=== PATIENT | female | born 1970 | race Caucasian/White ===

== ENCOUNTER → 2017-09-03 | Outpatient (CLI) | payer OTHER ==
[~2017-09-03] MED LIST: ALPR0.25 PO; LEVO137T3 PO; MTR600X MT
[2017-09-03 10:54] LABS: ALBUMIN 4.1 gm/dl (3.4-5.0); ALT/SGPT 95 U/L (12-78); BLOOD UREA NITROGEN 19 mg/dl (7-18); CALCIUM 9.7 mg/dl (8.5-10.1); CARBON DIOXIDE 26 mmol/L (21-32); CHOLESTEROL 242 mg/dl (0-200); GLUCOSE 147 mg/dl (70-99); POTASSIUM 4.9 mmol/L (3.5-5.1); SODIUM 136 mmol/L (136-145)
[2017-09-03 10:57] LABS: ALKALINE PHOSPHATASE 135 U/L (45-117); AST/SGOT 52 U/L (15-37); TOTAL PROTEIN 7.8 gm/dl (6.4-8.2)
== END | disposition home or self-care (01) ==
LOC: C.LAB1850 07:02
PROVIDERS: ATTEND Physician Assistant
DX: R79.89 Other specified abnormal findings of blood chemistry (principal)

== ENCOUNTER → 2017-12-31 | Outpatient (CLI) | payer OTHER ==
--- NOTE | 2017-12-31 09:04 | DIAGNOSTIC IMAGING REPORT ---
R PELVIS/UNILATERAL HIP 2-3VIEWS CLINICAL HISTORY: Right hip pain. COMPARISON: CT of the abdomen and pelvis March 05, 2015. FINDINGS: Sacroiliac joints and symphysis pubis are intact. Pelvic calcifications represent phleboliths. There is no fracture or suspicious lesion within the pelvis or hips. Right hip joint space is preserved. There is mild osteophytosis of the superior acetabulum. There is no evidence for avascular necrosis of the femoral heads. IMPRESSION: 1. Mild osteoarthritis of the right hip. Preserved joint space with mild osteophytosis. 2. No acute fracture within the pelvis or hips. Electronically signed by: Scott Milner M.D. 12/31/2017 7:52 AM Dictated Date/Time: 12/31/2017 7:50 AM
== END | disposition home or self-care (01) ==
LOC: C.RAD 07:20
PROVIDERS: ATTEND Physician Assistant
DX: M16.11 Unilateral primary osteoarthritis, right hip (principal)

== ENCOUNTER 2020-09-04 12:59 | Inpatient (IN) ==
[2020-09-04] MEDS ORDERED: HYDROmorphone INJ 0.5 MG/0.5 ML SYR IV STA ×2 (13:28→17:27)
[2020-09-04] MEDS ORDERED: SODIUM CHLORIDE 0.9% 1000ML 1,000 ML IV ONE (13:28)
[2020-09-04] MEDS ORDERED: ONDANSETRON INJ 2 MG/ML 2 ML VIAL IV STA (13:28)
--- NOTE | 2020-09-04 13:31 | Emergency Department Note ---
Impression & Plan Abdominal pain, Acute pancreatitis ED Provider Note NAME: SHAGUFTA HATFIELD AGE: 50 SEX: F : 1970 ARRIVES VIA: Walk-In INFORMANT: Patient ED PROVIDER(S): Judah Hernández DO CHIEF COMPLAINT: abdominal pain HPI: Patient is a 50-year-old female who presents the ER for epigastric abdominal pain. She has had this four times before in the past. It is consistent with her previous bouts of pancreatitis. She admits to nausea but no vomiting. Last bowel movement was within the past 24 hours. History of hysterectomy and tubal ligation. Denies any headache or change in vision. No chest pain or shortness of breath. No other exacerbating or remitting factors. Pain is a 7 out of 10 sharp stabbing. ROS: See above HPI for pertinent positives & negatives. A total of 10 systems reviewed and were otherwise negative. PAST MEDICAL HISTORY:See Below PAST SURGICAL HISTORY:See Below FAMILY HISTORY:See Below SOCIAL HISTORY:See Below HOME MEDICATIONS:See Below ALLERGIES:See Below VITALS:See Below PHYSICAL EXAMINATION: GENERAL: Sitting up in bed, alert, well appearing, well nourished, no distress, non-toxic EYE EXAM: normal conjunctiva. OROPHARYNX: no exudate, no erythema, lips, buccal mucosa, and tongue normal and mucous membranes are moist NECK: supple, no nuchal rigidity, no adenopathy, non-tender LUNGS: Clear to auscultation. Normal chest wall mechanics HEART: no murmurs, S1 normal and S2 normal ABDOMEN: abdomen soft, tender palpation epigastric region, normo-active bowel sounds, no masses, no rebound or guarding. UPPER EXTREMITIES: upper extremities are grossly normal. LOWER EXTREMITIES: No pitting edema. NEURO EXAM: Normal sensorium, cranial nerves II-XII grossly intact, normal speech, no gross weakness of arms, no gross weakness of legs. MEDICAL DECISION MAKING: Patient is a 50-year-old female who presents ER for epigastric abdominal pain. She had this 4 times before in the past and it feels exactly like the previous bouts. IV was established blood was obtained. Labs show no significant leukocytosis or anemia. BMP with mild hyponatremia at 135. LFTs bilirubin was unremarkable. Lipase was elevated at nearly 1500. UA was negative. Covid was negative. CT abdomen pelvis showed a low-grade enteritis. Patient was given IV fluids IV narcotics and IV Zofran. Updated bedside discussed with the hospitalist admitted for further work-up of her pancreatitis. Triage Nursing notes reviewed. Limited review of prior medical records performed Vital Signs: reviewed and remarkable for HTN Differential diagnosis: Differential diagnoses includes but is not limited to gastritis, peptic ulcer disease, GERD, gallbladder disease, pancreatitis, small bowel obstruction, acute coronary syndrome, pericarditis, ischemic bowel, irritable bowel disease, irritable bowel syndrome, appendicitis, diverticulitis, malignancy, hernia, urinary tract infection, torsion, perforation, trauma, infectious. ER treatment provided: See below Diagnostics interpreted by me: ECG: none Cardiac Monitoring: An order was placed for continuous cardiac monitoring. The monitor shows a rate of 74 with sinus rhythm. Laboratory studies: As stated above and show below. Imaging studies: CT abdomen pelvis shows no acute pathology as discussed above Consultation(s): Discussed with the hospitalist for further evaluation Procedures: none Critical Care: None Past Med/Surg History Social History Smoking Status: Current every day smoker Tobacco Type: Cigarettes Feels Safe at Home: Yes Allergies Allergies Allergy/AdvReac Type Severity Reaction Status Date / Time No Known Allergies Allergy Verified 09/04/20 15:02 Home Meds Home Medications Medication Instructions Recorded Confirmed hydroxyzine pamoate [Vistaril] See Rx Instructions .ROUTE .COMPLEX 09/04/20 09/04/20 levothyroxine [Levoxyl] 125 mcg PO QAM 09/04/20 09/04/20 ursodiol 300 mg PO BID 09/04/20 09/04/20 Results & Data (ED) Vital Signs Vital Signs - 24 hr 09/04/20 13:02 09/04/20 14:00 09/04/20 15:52 Temperature 36.3 C L Temperature Source Temporal Artery Scan Pulse Rate 91 H Pulse Rate [Finger] 82 68 Respiratory Rate 18 18 16 Respiratory Effort / Characteristics Non-Labored Spontaneous Non-Labored Respiratory Depth Normal Normal Blood Pressure 188/113 H Blood Pressure [Right Arm] 161/103 H 159/99 H Blood Pressure Mean 138 Blood Pressure Mean [Right Arm] 122 119 Blood Pressure Position Sitting Pulse Oximetry 97 96 97 Oxygen Delivery Method Room Air Room Air Room Air Sepsis Recent Fever Within 48 Hours No Sepsis New/Unexplained Change in Mental Status N/A Sepsis Action Taken by Nursing No Action Required 09/04/20 17:46 Temperature Temperature Source Pulse Rate Pulse Rate [Finger] 79 Respiratory Rate 16 Respiratory Effort / Characteristics Respiratory Depth Blood Pressure Blood Pressure [Right Arm] 156/98 H Blood Pressure Mean Blood Pressure Mean [Right Arm] 117 Blood Pressure Position Pulse Oximetry 97 Oxygen Delivery Method Room Air Sepsis Recent Fever Within 48 Hours Sepsis New/Unexplained Change in Mental Status Sepsis Action Taken by Nursing Laboratory Data Result diagrams: 09/04/20 13:57 09/04/20 17:46 Lab Results 09/04/20 09/04/20 09/04/20 Range/Units 13:57 13:57 13:57 WBC 9.68 (4.8-10.8) K/uL RBC 5.04 (4.2-5.4) M/uL Hgb 15.4 (12.0-16.0) g/dL Hct 42.9 (37-47) % MCV 85.1 (80-100) fL MCH 30.6 (25-34) pg MCHC 35.9 (32-36) g/dL RDW Std Deviation 41.8 (36.4-46.3) fL RDW Coeff of Meliton 13.6 (11.5-14.5) % Plt Count 170 (130-400) K/uL MPV 10.2 (7.4-10.4) fL Immature Gran % (Auto) 0.9 % Neut % (Auto) 65.2 % Lymph % (Auto) 27.2 % [place] % (Auto) 5.1 % Eos % (Auto) 0.9 % Baso % (Auto) 0.7 % Neut # (Auto) 6.31 (1.4-6.5) K/uL Lymph # (Auto) 2.63 (1.2-3.4) K/uL [place] # (Auto) 0.49 (0.11-0.59) K/uL Eos # (Auto) 0.09 (0-0.5) K/uL Baso # (Auto) 0.07 (0-0.2) K/uL Immature Gran # (Auto) 0.09 H (0.00-0.02) K/uL Sodium 135 L (136-145) mmol/L Potassium (3.5-5.1) mmol/L Chloride 103 (98-107) mmol/L Carbon Dioxide 26 (21-32) mmol/L Anion Gap 6.0 (3-11) BUN 12 (7-18) mg/dl Creatinine 0.65 (0.6-1.2) mg/dl Est Cr Clr Drug Dosing 104.0 ml/min Est GFR ( Amer) 120.0 Est GFR (Non-Af Amer) 103.5 BUN/Creatinine Ratio 17.8 (10-20) Glucose 198 H (70-99) mg/dl Calcium 8.9 (8.5-10.1) mg/dl Total Bilirubin 0.5 (0.2-1) mg/dl AST (15-37) U/L ALT 67 (12-78) U/L Alkaline Phosphatase 152 H (45-117) U/L Total Protein 7.9 (6.4-8.2) gm/dl Albumin 3.9 (3.4-5.0) gm/dl Globulin 3.8 (2.5-4.0) gm/dl Albumin/Globulin Ratio 1.0 (0.9-2) Lipase 1475 H (73-393) U/L Urine Color Yellow Urine Appearance Clear (Clear) Urine pH 5.0 (4.5-7.5) Ur Specific Holly 1.007 (1.000-1.030) Urine Protein Negative (Negative) Urine Glucose (UA) Trace H (Negative) Urine Ketones Negative (Negative) Urine Blood Negative (Negative) Urine Nitrite Negative (Negative) Urine Bilirubin Negative (Negative) Urine Urobilinogen Negative (Negative) Ur Leukocyte Esterase Negative (Negative) COVID-19 Eval Order SARS-CoV-2 (PCR) (Negative) Influenza Type A (PCR) (Neg) Influenza Type B (PCR) (Neg) RSV (RT-PCR) (Neg) 09/04/20 09/04/20 09/04/20 Range/Units 17:32 17:32 17:46 WBC (4.8-10.8) K/uL RBC (4.2-5.4) M/uL Hgb (12.0-16.0) g/dL Hct (37-47) % MCV (80-100) fL MCH (25-34) pg MCHC (32-36) g/dL RDW Std Deviation (36.4-46.3) fL RDW Coeff of Meliton (11.5-14.5) % Plt Count (130-400) K/uL MPV (7.4-10.4) fL Immature Gran % (Auto) % Neut % (Auto) % Lymph % (Auto) % [place] % (Auto) % Eos % (Auto) % Baso % (Auto) % Neut # (Auto) (1.4-6.5) K/uL Lymph # (Auto) (1.2-3.4) K/uL [place] # (Auto) (0.11-0.59) K/uL Eos # (Auto) (0-0.5) K/uL Baso # (Auto) (0-0.2) K/uL Immature Gran # (Auto) (0.00-0.02) K/uL Sodium (136-145) mmol/L Potassium 4.0 (3.5-5.1) mmol/L Chloride (98-107) mmol/L Carbon Dioxide (21-32) mmol/L Anion Gap (3-11) BUN (7-18) mg/dl Creatinine (0.6-1.2) mg/dl Est Cr Clr Drug Dosing ml/min Est GFR ( Amer) Est GFR (Non-Af Amer) BUN/Creatinine Ratio (10-20) Glucose (70-99) mg/dl Calcium (8.5-10.1) mg/dl Total Bilirubin (0.2-1) mg/dl AST 35 (15-37) U/L ALT (12-78) U/L Alkaline Phosphatase (45-117) U/L Total Protein (6.4-8.2) gm/dl Albumin (3.4-5.0) gm/dl Globulin (2.5-4.0) gm/dl Albumin/Globulin Ratio (0.9-2) Lipase (73-393) U/L Urine Color Urine Appearance (Clear) Urine pH (4.5-7.5) Ur Specific Holly (1.000-1.030) Urine Protein (Negative) Urine Glucose (UA) (Negative) Urine Ketones (Negative) Urine Blood (Negative) Urine Nitrite (Negative) Urine Bilirubin (Negative) Urine Urobilinogen (Negative) Ur Leukocyte Esterase (Negative) COVID-19 Eval Order CovFluRsv at [facility] SARS-CoV-2 (PCR) NEGATIVE (Negative) Influenza Type A (PCR) Negative (Neg) Influenza Type B (PCR) Negative (Neg) RSV (RT-PCR) Negative (Neg) Administered Medications Discontinued Medications Hydromorphone HCl (Hydromorphone Inj 0.5 Mg/0.5 Ml Syr) 0.5 mg IV NOW STA Stop: 09/04/20 13:29 Last Admin: 09/04/20 14:03 Dose: 0.5 mg Documented by: [id number] Hydromorphone HCl (Hydromorphone Inj 0.5 Mg/0.5 Ml Syr) 0.5 mg IV NOW STA Stop: 09/04/20 17:28 Last Admin: 09/04/20 17:35 Dose: 0.5 mg Documented by: [id number] Sodium Chloride (Nss 1000ml) 1,000 mls @ 999 mls/hr IV .Q1H1M ONE Stop: 09/04/20 14:28 Last Infusion: 09/04/20 15:15 Dose: 0 mls/hr Documented by: [id number] Admin: 09/04/20 14:03 Dose: 999 mls/hr Documented by: [id number] Ioversol (Ioversol 100ml) 92 ml IV ONCE ONE Stop: 09/04/20 17:14 Last Admin: 09/04/20 17:14 Dose: 92 ml Documented by: [id number] Ondansetron HCl (Ondansetron Inj 2 Mg/Ml 2 Ml Vial) 4 mg IV NOW STA Stop: 09/04/20 13:29 Last Admin: 09/04/20 14:02 Dose: 4 mg Documented by: [id number] Discharge Plan Visit Data Chief Complaint: Illness Stated Complaint: PANCREATIC ATTACK ED Provider: Judah Hernández Discharge Problem: Abdominal pain, Acute pancreatitis Forms Stand Alone Forms: [facility] III Prescriptions Prescriptions: No Action levothyroxine [Levoxyl] 125 mcg tablet 125 mcg PO QAM RF: 0 ursodiol 300 mg capsule 300 mg PO BID RF: 0 hydroxyzine pamoate [Vistaril] 25 mg capsule See Rx Instructions .ROUTE .COMPLEX RF: 0 Discharge Problem: Abdominal pain Qualifiers: Abdominal location: unspecified location Qualified Code(s): R10.9 - Unspecified abdominal pain Acute pancreatitis Qualifiers: Pancreatitis type: unspecified pancreatitis type Acute pancreatitis complication: unspecified Qualified Code(s): K85.90 - Acute pancreatitis without necrosis or infection, unspecified
[2020-09-04 14:22] LABS: Basophils # (auto) 0.07 K/uL (0-0.2); Basophils % (auto) 0.7 %; Eosinophils # (auto) 0.09 K/uL (0-0.5); Eosinophils % (auto) 0.9 %; Hematocrit (blood only) 42.9 % (37-47); Hemoglobin 15.4 g/dL (12.0-16.0); Immature Granulocytes # (auto) 0.09 K/uL (0.00-0.02); Immature Granulocytes % (auto) 0.9 %; Lymphocytes # (auto) 2.63 K/uL (1.2-3.4); Lymphocytes % (auto) 27.2 %; Mean Corpuscular Hemoglobin 30.6 pg (25-34); Mean Corpuscular Hgb Conc 35.9 g/dL (32-36); Mean Corpuscular Volume 85.1 fL (80-100); Mean Platelet Volume 10.2 fL (7.4-10.4); Monocytes # (auto) 0.49 K/uL (0.11-0.59); Monocytes % (auto) 5.1 %; Neutrophils # (auto) 6.31 K/uL (1.4-6.5); Neutrophils % (auto) 65.2 %; Platelet Count 170 K/uL (130-400); RDW Coefficient of Variation 13.6 % (11.5-14.5); RDW Standard Deviation 41.8 fL (36.4-46.3); Red Blood Count 5.04 M/uL (4.2-5.4); White Blood Count 9.68 K/uL (4.8-10.8)
[2020-09-04 14:42] LABS: Appearance Urine Clear (Clear); Bilirubin Urine Negative (Negative); Blood Urine Negative (Negative); Color Urine Yellow; Glucose Urine UA Trace (Negative); Ketones Urine Negative (Negative); Leukocyte Esterase Urine Negative (Negative); Nitrite Urine Negative (Negative); Protein Urine Negative (Negative); Specific Gravity Urine 1.007 (1.000-1.030); Urobilinogen Urine Negative (Negative)
[2020-09-04 16:04] LABS: Albumin Level 3.9 gm/dl (3.4-5.0); BUN Creatinine Ratio 17.8 (10-20); Bilirubin,Total 0.5 mg/dl (0.2-1); Calcium 8.9 mg/dl (8.5-10.1); Est GFR (Non-African American) 103.5; Globulin 3.8 gm/dl (2.5-4.0); Total Protein 7.9 gm/dl (6.4-8.2)
[2020-09-04] MEDS ORDERED: OPTIRAY 320 100ml IV ONE (17:13)
--- NOTE | 2020-09-04 17:29 | CT Scan Report ---
ABDOMEN AND PELVIS CT WITH IV CONTRAST CT DOSE: 877.33 mGycm HISTORY: Left-sided abdominal pain. TECHNIQUE: Multiaxial CT images of the abdomen and pelvis were performed following the use of intrave nous contrast. A dose lowering technique was utilized adhering to the principles of ALARA. COMPARISON STUDY: 03/05/2015. FINDINGS: Mild dependent changes seen at the lung bases. No pneumoperitoneum. No pneumatosis. No frac tures within the visualized osseous structures. Hepatomegaly demonstrating fatty change. A few subcen timeter hypervascular foci within the right hepatic lobe with the largest in segment 6 measuring 11 m m. This remains stable. These are technically indeterminate but could represent a small flash filling hemangiomas. The spleen, adrenal glands, pancreas, gallbladder, and right kidney are unremarkable. T here is a 13 mm cyst within the upper pole the left kidney, unchanged. No hydronephrosis. Hysterectom y. No bladder wall thickening. No pelvic free fluid. Colonic diverticulosis. No evidence for acute di verticulitis. Normal appendix. Questionable minimal inflammatory change surrounding a few loops of je junum within the left side of the abdomen. This is best seen on image 197. This raises the possibilit y of a low-grade enteritis. IMPRESSION: 1. Possible low-grade enteritis. 2. Colonic diverticulosis. No evidence for acute diverticulitis. 3. No evidence for bowel obstruction. 4. Normal appendix. 5. A few scattered hypervascular lesions within the right hepatic lobe. These are technically indeter minate but could represent flash filling hemangiomas. 6. Hepatomegaly demonstrating fatty change. ACT 112: Negative or not required by law. Electronically signed by: Blake Rios M.D. 09/04/2020 5:27 PM
--- NOTE | 2020-09-04 18:01 | History & Physical Report ---
Date of Service September 04, 2020 Assessment & Plan (1) Acute pancreatitis: Acute Pancreatitis: H/O multiple episodes of pancreatitis -CT ABD: Possible low-grade enteritis. Colonic diverticulosis. No evidence for acute diverticulitis. No evidence for bowel obstruction. Normal appendix. A few scattered hypervascular lesions within the right hepatic lobe. These are technically indeterminate but could represent flash filling hemangiomas. Hepatomegaly demonstrating fatty change. Keep NPO Start on IV fluids Lipase levels elevated: 1475 Denies an recent Alcohol use Check Tox Screen, Alcohol levels Check Gallbladder [facility] consulted Check lipid panel Pain control Monitor LFTs Continue ursodiol Started on Pepcid Hypertension BP elevated likely situational Started on Amlodipine DM Type II: Poorly controlled Currently not on meds Last A1c:9.2 on 09/17/18 Start on Insulin therapy Monitor BGs Hypothyroidism Continue levothyroxine Check TSH Dyslipidemia Currently not on any meds Check lipid panel in a.m. Tobacco use disorder Counseled to quit tobacco Refuses nicotine patch DVT Px: SCDs CODE STATUS Full code Disposition Expected discharge home when medically stable History of Present Illness Chief Complaint: Abdominal Pain Primary Care Provider: Edwin Espinoza MD Patient is a 50-year-old female with history of type 2 diabetes mellitus, tobacco use disorder, hypothyroidism, dyslipidemia, history of pancreatitis and other medical problems presents with history of abdominal distention, fullness associated with epigastric pain. Patient states that even with minimal food intake, patient feels distended and full since 1 week duration. She admits to having multiple episodes of pancreatitis in the past which she attributes to gallbladder sludge and states that she is planned to be seen by a surgeon for gallbladder removal. She denies any recent alcohol use. She is reports abdominal pain which is epigastric in location, nonradiating, 6/10 intensity, no aggravating or relieving factors. She was started on ursodiol recently by her PCP. She was diagnosed to have type 2 diabetes mellitus but currently not taking any medications. Denies any history of chest pain, SOB, palpitations, dizziness, pedal edema, cough, fever, chills, headache, weakness, nausea, vomiting, diarrhea, dysuria, recent travel, sick contact. Allergies Allergy/AdvReac Type Severity Reaction Status Date / Time No Known Allergies Allergy Verified 09/04/20 15:02 Home Medications Medication Instructions Recorded Confirmed Type hydroxyzine pamoate [Vistaril] See Rx Instructions .ROUTE .COMPLEX 09/04/20 09/04/20 History levothyroxine [Levoxyl] 125 mcg PO QAM 09/04/20 09/04/20 History ursodiol 300 mg PO BID 09/04/20 09/04/20 History Past Med/Surg History Medical History Diabetes Hypothyroidism Tobacco use disorder Social History Smoking Status: Current every day smoker Tobacco Type: Cigarettes Feels Safe at Home: Yes Review of Systems Review of Systems: All systems reviewed & are unremarkable except as noted in HPI & below Physical Exam Physical Exam: Physical Exam: Vitals signs as noted above General Appearance:Moderately built and nourished, no apparent distress Head: normocephalic, Atraumatic Eyes: normal inspection, EOMI Neck: supple, Trachea midline Respiratory/Chest: Normal breath sounds, CTA, No accessory muscle use Cardiovascular: S1, S2, No murmur Abdomen/GI:Soft, Epigastric tender, Bowel sounds present Extremities/Musculoskeletal:normal inspection, no edema Neurologic/Psych:AAOX3, grossly no focal neurological deficits Skin: normal color, warm Results & Data Results & Data ([facility]) Vital Signs (Past 12 Hours) Vital Signs Temp Pulse Pulse Resp BP BP Pulse Ox 09/04/20 17:46 79 16 156/98 H 97 09/04/20 15:52 68 16 159/99 H 97 09/04/20 14:00 82 18 161/103 H 96 09/04/20 13:02 36.3 C L 91 H 18 188/113 H 97 Laboratory Results Short CBC 09/04/20 Range/Units 13:57 WBC 9.68 (4.8-10.8) K/uL Hgb 15.4 (12.0-16.0) g/dL Hct 42.9 (37-47) % Plt Count 170 (130-400) K/uL BMP 09/04/20 09/04/20 13:57 17:46 Sodium 135 L Potassium 4.0 Chloride 103 Carbon Dioxide 26 BUN 12 Creatinine 0.65 Glucose 198 H Calcium 8.9 Liver Function 09/04/20 09/04/20 Range/Units 13:57 17:46 Total Bilirubin 0.5 (0.2-1) mg/dl AST 35 (15-37) U/L ALT 67 (12-78) U/L Alkaline Phosphatase 152 H (45-117) U/L Albumin 3.9 (3.4-5.0) gm/dl Urine 09/04/20 Range/Units 13:57 Urine Color Yellow Urine Appearance Clear (Clear) Urine pH 5.0 (4.5-7.5) Ur Specific [place] 1.007 (1.000-1.030) Urine Protein Negative (Negative) Urine Glucose (UA) Trace H (Negative) Diagnostic Findings CT ABD: 1. Possible low-grade enteritis. 2. Colonic diverticulosis. No evidence for acute diverticulitis. 3. No evidence for bowel obstruction. 4. Normal appendix. 5. A few scattered hypervascular lesions within the right hepatic lobe. These are technically indeterminate but could represent flash filling hemangiomas. 6. Hepatomegaly demonstrating fatty change. (1) Acute pancreatitis Acute pancreatitis complication: unspecified Pancreatitis type: unspecified pancreatitis type Qualified Code(s): K85.90 - Acute pancreatitis without necrosis or infection, unspecified
[2020-09-04 18:33] LABS: Influenza A virus by PCR Negative (Neg); Influenza B virus by PCR Negative (Neg); RSV by PCR Negative (Neg); SARS CoV2 RNA(COVID-19) InHosp NEGATIVE (Negative)
[2020-09-04] MEDS ORDERED: amLODIPine BESYLATE 5 MG TAB PO ONE (21:08)
[2020-09-04] MEDS ORDERED: CARBOHYDRATES FOR HYPOGLYCEMIA PO PRN (21:08)
[2020-09-04] MEDS ORDERED: ONDANSETRON INJ 2 MG/ML 2 ML VIAL IV PRN (21:08)
[2020-09-04] MEDS ORDERED: DEXTROSE 50% 50 ML SYRINGE IV PRN (21:08)
[2020-09-04] MEDS ORDERED: GLUCOSE 40% GEL 15 GM TUBE PO PRN (21:08)
[2020-09-04] MEDS ORDERED: hydrOXYzine HCl 10 MG TAB PO PRN (21:08)
[2020-09-04] MEDS ORDERED: ACETAMINOPHEN 325 MG TAB PO PRN (21:08)
[2020-09-04] MEDS ORDERED: POLYETHYLENE (MIRALAX) 17 GM PACK PO PRN (21:08)
[2020-09-04] MEDS ORDERED: GLUCOSE 10 TABS/TUBE PO PRN (21:08)
[2020-09-04] MEDS ORDERED: GLUCAGON FOR INJ 1 MG VIAL SQ PRN (21:08)
[2020-09-04] MEDS ORDERED: MoRPHine SULFATE 2 MG/ML CARP IV PRN (21:08)
[2020-09-04] MEDS: INSULIN ASPART 100 UNITS/ML 3 ML PEN SC SCH (21:52)
[2020-09-04] MEDS: FAMOTIDINE 10 MG TABLET PO SCH (21:53)
[2020-09-04] MEDS: LACTATED RINGER'S 1,000 ML IV SCH (21:53)
[2020-09-04] MEDS: ursodioL 300 MG CAP PO SCH (21:53)
[2020-09-04 22:15] LABS: Chol HDL Ratio 12; Cholesterol 304 mg/dl (0-200); HDL Cholesterol 26 mg/dl; Triglycerides 1889 mg/dl (0-150)
[2020-09-05 04:11] LABS: Amphetamines+Metham, Urine Neg (Neg); Barbiturates, Urine Neg (Neg); Benzodiazepine, Urine Neg (Neg); Cocaine, Urine Neg (Neg); MDMA (Ecstacy), Urine Neg (Neg); Methadone, Urine Neg (Neg); Opiate, Urine Neg (Neg); Phencyclidine, Urine Neg (Neg)
[2020-09-05] MEDS: LACTATED RINGER'S 1,000 ML IV SCH ×4 (04:11→23:48)
[2020-09-05] MEDS: LEVOTHYROXINE SODIUM 125 MCG TABLET PO SCH (05:51)
[2020-09-05 07:30] LABS: Basophils # (auto) 0.04 K/uL (0-0.2); Basophils % (auto) 0.5 %; Eosinophils # (auto) 0.11 K/uL (0-0.5); Eosinophils % (auto) 1.4 %; Hematocrit (blood only) 41.4 % (37-47); Hemoglobin 14.4 g/dL (12.0-16.0); Immature Granulocytes # (auto) 0.09 K/uL (0.00-0.02); Immature Granulocytes % (auto) 1.1 %; Lymphocytes # (auto) 2.49 K/uL (1.2-3.4); Lymphocytes % (auto) 31.1 %; Mean Corpuscular Hemoglobin 29.9 pg (25-34); Mean Corpuscular Hgb Conc 34.8 g/dL (32-36); Mean Corpuscular Volume 85.9 fL (80-100); Mean Platelet Volume 10.2 fL (7.4-10.4); Monocytes # (auto) 0.44 K/uL (0.11-0.59); Monocytes % (auto) 5.5 %; Neutrophils # (auto) 4.83 K/uL (1.4-6.5); Neutrophils % (auto) 60.4 %; Platelet Count 155 K/uL (130-400); RDW Coefficient of Variation 13.8 % (11.5-14.5); RDW Standard Deviation 43.2 fL (36.4-46.3); Red Blood Count 4.82 M/uL (4.2-5.4)
[2020-09-05] MEDS: amLODIPine BESYLATE 5 MG TAB PO SCH (08:05)
[2020-09-05] MEDS: FAMOTIDINE 10 MG TABLET PO SCH ×2 (08:05→21:27)
[2020-09-05] MEDS: ursodioL 300 MG CAP PO SCH ×2 (08:05→21:27)
[2020-09-05] MEDS: INSULIN ASPART 100 UNITS/ML 3 ML PEN SC SCH ×4 (08:12→21:26)
[2020-09-05 08:16] LABS: Albumin Level 3.5 gm/dl (3.4-5.0); BUN Creatinine Ratio 16.8 (10-20); Calcium 7.9 mg/dl (8.5-10.1); Creatinine Clr Calc Pharmacy 127.3 ml/min; Est GFR (African American) 128.3; Est GFR (Non-African American) 110.7; Magnesium 1.7 mg/dl (1.8-2.4); Potassium 3.6 mmol/L (3.5-5.1)
--- NOTE | 2020-09-05 08:16 | Ultrasound Report ---
ABDOMINAL ULTRASOUND, RIGHT UPPER QUADRANT HISTORY: Pancreatitis. Left-sided abdominal pain. COMPARISON: None. FINDINGS: Pancreas: Obscured by overlying bowel gas. Liver: The liver is echogenic consistent with fatty change. 21.5 cm. Gallbladder: No gallbladder wall thickening. No gallstones. CBD: 5 mm. Right kidney: No hydronephrosis. IMPRESSION: 1. Hepatomegaly demonstrating fatty change. 2. The pancreas is obscured by overlying bowel gas. 3. Normal gallbladder. No gallstones. ACT 112: Negative or not required by law. Electronically signed by: Blake Rios M.D. 09/05/2020 8:15 AM
[2020-09-05 08:30] LABS: Albumin Globulin Ratio 1.1 (0.9-2); Bilirubin,Total 0.5 mg/dl (0.2-1); Globulin 3.2 gm/dl (2.5-4.0); Thyroid Stimulating Hormone 2.11 uIu/ml (0.300-4.500); Total Protein 6.7 gm/dl (6.4-8.2)
[2020-09-05 08:46] LABS: Estimated Average Glucose 235 mg/dl; Hemoglobin A1C 9.8 % (4.5-5.6)
--- NOTE | 2020-09-05 10:01 | Hospitalist Progress Note ---
Date of Service September 05, 2020 Assessment & Plan (1) Acute pancreatitis: Acute Pancreatitis: H/O multiple episodes of pancreatitis -CT ABD: Possible low-grade enteritis. Colonic diverticulosis. No evidence for acute diverticulitis. No evidence for bowel obstruction. Normal appendix. A few scattered hypervascular lesions within the right hepatic lobe. These are technically indeterminate but could represent flash filling hemangiomas. Hepatomegaly demonstrating fatty change. Start Clears, Pain gone, feels hungry Resume IV fluids Lipase levels elevated: 1475 --->475 today Denies an recent Alcohol use Check Tox Screen, Alcohol levels Check Gallbladder [facility] consulted Check lipid panel-TG Elevated Pain control Monitor LFTs Continue ursodiol Started on Pepcid Hypertension BP elevated likely situational Started on Amlodipine DM Type II: Poorly controlled Currently not on meds Last A1c:9.2 on 09/17/18 Start on Insulin therapy Monitor BGs Hypothyroidism Continue levothyroxine Check TSH Dyslipidemia Currently not on any meds Check lipid panel in a.m. Tobacco use disorder Counseled to quit tobacco Refuses nicotine patch DVT Px: SCDs CODE STATUS Full code Labs Checked ROS-No Headache, No Visual Changes, No Nausea, No Vomiting, No Fever, No Chills, No Neck Pain or Stiffness, No Chest Pain, No Palpitations, No SOB, No DOBBINS, No Cough, No Sputum, No Wheezing, No Abdominal Pain, No Diarrhea, No Hematemesis, No Hemoptysis, No Unexpected Weight Loss, No Flank pain, No Melena, No Hematochezia, No Frequency, No Urgency, No Burning, No Hematuria, No Rashes, No Diaphoresis. Appetite is Normal Physical Exam Gen-AAO x 3, NAD, Afebrile Head-NCAT, EOMI, PERRLA, Anicteric Sclera, No Posterior Pharyngeal Erythema Neck-Supple, No JVD, No Thyromegaly, No Masses, No LAD, No Bruits Lungs-Clear to Auscultation Bilaterally, No Rales, No Rhonchi, No Wheezing, No Crepitus Chest-No S4, +S1, +S2, No S3, No Murmurs, No Rubs, No Gallops, No Ectopy Abdomen-Soft, Bowel Sounds Present, Non Tender, Non Distended, No Hepatomegaly, No Splenomegaly, No Palpable Masses, No Rebound, No Rigidity, No Guarding Musculoskeletal-Full Range of Motion Bilaterally, No CVAT Extremities-No Cyanosis, No Clubbing, No Edema Nuero-Cranial Nerves II-XII grossly intact, Motor WNL, DTRs WNL, Strength WNL, Non Focal Psych-Normal Mood Admission and Anticipated Discharge Date Admission Date: September 04, 2020 Results & Data Results & Data ([facility]) Vital Signs (Past 12 Hours) Vital Signs Temp Pulse Resp BP Pulse Ox 09/05/20 07:53 36.5 C 62 16 145/87 H 95 09/05/20 04:00 36.7 C 64 18 130/83 94 09/05/20 00:00 36.5 C 64 18 143/87 H 96 (1) Acute pancreatitis Acute pancreatitis complication: unspecified Pancreatitis type: unspecified pancreatitis type Qualified Code(s): K85.90 - Acute pancreatitis without necrosis or infection, unspecified
--- NOTE | 2020-09-05 10:09 | Gastrointestinal Consultation ---
Date of Consultation September 05, 2020 Assessment & Plan (1) Acute pancreatitis: 50 year old female admitted with abd pain, elevated lipase concerning for acute pancreatitis, similar episodes x 4, tells me she had abnormal biliary imaging with sludge in past but never had CCY. Imaging this admission negative, elevated triglycerides and mildly elevated LFTs NPO Can advance to clear liquids as tolerated then low fat Iv analgesia PRN IV antiemetics PRN gen surgery consultation to eval for CCY - she tells me she does not want to to this while admitted - she has appt thursday at [facility] with PCP and gen surg OP EUS in 6 weeks Thank you for allowing us to participate in the care of this patient. Please call with any acute changes, questions or concerns. Please see addendum below with additional recommendation from my supervising physician. Supervising Physician Co-Signing Physician Notes Late entry: Patient was seen and examine don 09/05 with CHAUNCEY Jackson whose note reflects our findings and plan. History of Present Illness Reason for Consultation: acute panc Requesting Physician: Trista Attending Physician: Ashish Weston, History of Present Illness 50 year old female admitted w/ abd pain x 1 week, acutely worsening 24 hours ago, admitted with elevated lipase - acute pancreatitis. Pt was seen and evaluated chart reviewed. Tells me she has had pancreatitis 4 x in the past. Symptoms identical. Suggests one episode was while in [place] others were while she was [place]. Notes she was told she had GB sludge and abnormal biliary imaging. Was to follow up with surgery and she notes she did this [place] but was not her GB is fine. Since, she was told to remain ETOH free and on low fat diet. She has done so. Despite this, similar episodes x 3 occurrences. Denies ETOH No new meds No family history of GI cancers Still has GB No supplements Triglycerides 1999 lipase 746 TB 0.5 AST 41 ALT 67 ALK 118 CTAP 2020: Possible low-grade enteritis. 2. Colonic diverticulosis. No evidence for acute diverticulitis. 3. No evidence for bowel obstruction. 4. Normal appendix. 5. A few scattered hypervascular lesions within the right hepatic lobe. These are technically indeterminate but could represent flash filling hemangiomas. 6. Hepatomegaly demonstrating fatty change. ABD US 2020: Hepatomegaly demonstrating fatty change. 2. The pancreas is obscured by overlying bowel gas. 3. Normal gallbladder. No gallstones. Allergies Allergy/AdvReac Type Severity Reaction Status Date / Time No Known Allergies Allergy Verified 09/04/20 15:02 Home Medications Medication Instructions Recorded Confirmed Type hydroxyzine pamoate [Vistaril] See Rx Instructions .ROUTE .COMPLEX 09/04/20 09/04/20 History levothyroxine [Levoxyl] 125 mcg PO QAM 09/04/20 09/04/20 History ursodiol 300 mg PO BID 09/04/20 09/04/20 History acetaminophen 650 mg PO Q4H PRN #30 tab 09/06/20 Rx amlodipine [Norvasc] 5 mg PO QAM #30 tab 09/06/20 Rx empagliflozin [Jardiance] 10 mg PO DAILY #30 tab 09/06/20 Rx famotidine [Acid Horse Exerciser 10 mg PO BID #60 tab 09/06/20 Rx (famotidine)] metformin 500 mg PO DAILY #30 tab 09/06/20 Rx Patient History Medical History Diabetes Hypothyroidism Tobacco use disorder Social History Smoking Status: Current every day smoker Tobacco Type: Cigarettes Cigarettes Per Day: 20; Second Hand Exposure: No; Do You Dip or Chew Tobacco: No; Tobacco Cessation Education Requested by Patient: No Hx Alcohol Use: No Hx Substance Use: No Preferred Language: Spanish Communication Ability: Effective Human Resources Talent Manager Required: No Beliefs That Will Affect Care: None Current Living Situation: Alone Other Information That Helps Us Care for You: No Feels Safe at Home: Yes Safety Concerns: Feels Safe At This Time Assistive Devices: None Review of Systems Constitutional: no fever, no chills and no fatigue Respiratory: no cough and no dyspnea Cardiovascular: no chest pain and no dyspnea Gastrointestinal: + abdominal pain and + nausea; no vomiting, no coffee ground emesis, no blood in stools and no melena Physical Exam Constitutional: well developed and well nourished; no acute distress Neck: trachea midline Respiratory: normal respiratory effort Cardiovascular: Rate/Rhythm: regular rate and regular rhythm Gastrointestinal (Abdomen): Percussion/Palpation: + abdomen tender (mild, improved) and abdomen soft; no guarding and abdomen not rigid Skin: no rashes, warm and dry Results & Data ([facility]) Vital Signs (Past 12 Hours) Vital Signs Temp Pulse Pulse Resp BP Pulse Ox 09/05/20 07:53 36.5 C 62 16 145/87 H 95 09/05/20 07:30 66 09/05/20 04:00 36.7 C 64 18 130/83 94 09/05/20 00:00 36.5 C 64 18 143/87 H 96 Laboratory Results 09/05/20 09/05/20 09/05/20 Range/Units 07:49 06:56 06:56 WBC (4.8-10.8) K/uL RBC (4.2-5.4) M/uL Hgb (12.0-16.0) g/dL Hct (37-47) % MCV (80-100) fL MCH (25-34) pg MCHC (32-36) g/dL RDW Std Deviation (36.4-46.3) fL RDW Coeff of Meliton (11.5-14.5) % Plt Count (130-400) K/uL MPV (7.4-10.4) fL Immature Gran % (Auto) % Neut % (Auto) % Lymph % (Auto) % [place] % (Auto) % Eos % (Auto) % Baso % (Auto) % Neut # (Auto) (1.4-6.5) K/uL Lymph # (Auto) (1.2-3.4) K/uL [place] # (Auto) (0.11-0.59) K/uL Eos # (Auto) (0-0.5) K/uL Baso # (Auto) (0-0.2) K/uL Immature Gran # (Auto) (0.00-0.02) K/uL Sodium 135 L (136-145) mmol/L Potassium 3.6 (3.5-5.1) mmol/L Chloride 104 (98-107) mmol/L Carbon Dioxide 26 (21-32) mmol/L Anion Gap 6.0 (3-11) BUN 9 (7-18) mg/dl Creatinine 0.53 L (0.6-1.2) mg/dl Est Cr Clr Drug Dosing 127.3 ml/min Est GFR ( Amer) 128.3 Est GFR (Non-Af Amer) 110.7 BUN/Creatinine Ratio 16.8 (10-20) Glucose 223 H (70-99) mg/dl POC Glucose 220 H (70-99) mg/dl Estimat Average Glucose 235 mg/dl Hemoglobin A1c 9.8 H (4.5-5.6) % Calcium 7.9 L (8.5-10.1) mg/dl Magnesium 1.7 L (1.8-2.4) mg/dl Total Bilirubin 0.5 (0.2-1) mg/dl AST 41 H (15-37) U/L ALT 64 (12-78) U/L Alkaline Phosphatase 118 H (45-117) U/L Total Protein 6.7 (6.4-8.2) gm/dl Albumin 3.5 (3.4-5.0) gm/dl Globulin 3.2 (2.5-4.0) gm/dl Albumin/Globulin Ratio 1.1 (0.9-2) Triglycerides (0-150) mg/dl Cholesterol (0-200) mg/dl LDL Cholesterol, Calc mg/dl VLDL Cholesterol, Calc mg/dl HDL Cholesterol mg/dl Cholesterol/HDL Ratio Lipase 726 H (73-393) U/L TSH 2.110 (0.300-4.500) uIu/ml Specimen Hemolysis Urine Color Urine Appearance (Clear) Urine pH (4.5-7.5) Ur Specific Emery (1.000-1.030) Urine Protein (Negative) Urine Glucose (UA) (Negative) Urine Ketones (Negative) Urine Blood (Negative) Urine Nitrite (Negative) Urine Bilirubin (Negative) Urine Urobilinogen (Negative) Ur Leukocyte Esterase (Negative) Urine Opiates Screen (Neg) Ur Methadone, Qual (Neg) Urine Barbiturates (Neg) Ur Phencyclidine (PCP) (Neg) U Amphetamin/Meth Scrn (Neg) MDMA (Ecstasy) Screen (Neg) U Benzodiazepines Scrn (Neg) Ur Cocaine Metabolite (Neg) U Marijuana (THC) Screen (Neg) Ethyl Alcohol mg/dL (0-3) mg/dl COVID-19 Eval Order SARS-CoV-2 (PCR) (Negative) Influenza Type A (PCR) (Neg) Influenza Type B (PCR) (Neg) RSV (RT-PCR) (Neg) 09/05/20 09/05/2021 Range/Units 06:56 03:22 21:51 WBC 8.00 (4.8-10.8) K/uL RBC 4.82 (4.2-5.4) M/uL Hgb 14.4 (12.0-16.0) g/dL Hct 41.4 (37-47) % MCV 85.9 (80-100) fL MCH 29.9 (25-34) pg MCHC 34.8 (32-36) g/dL RDW Std Deviation 43.2 (36.4-46.3) fL RDW Coeff of Meliton 13.8 (11.5-14.5) % Plt Count 155 (130-400) K/uL MPV 10.2 (7.4-10.4) fL Immature Gran % (Auto) 1.1 % Neut % (Auto) 60.4 % Lymph % (Auto) 31.1 % [place] % (Auto) 5.5 % Eos % (Auto) 1.4 % Baso % (Auto) 0.5 % Neut # (Auto) 4.83 (1.4-6.5) K/uL Lymph # (Auto) 2.49 (1.2-3.4) K/uL [place] # (Auto) 0.44 (0.11-0.59) K/uL Eos # (Auto) 0.11 (0-0.5) K/uL Baso # (Auto) 0.04 (0-0.2) K/uL Immature Gran # (Auto) 0.09 H (0.00-0.02) K/uL Sodium (136-145) mmol/L Potassium (3.5-5.1) mmol/L Chloride (98-107) mmol/L Carbon Dioxide (21-32) mmol/L Anion Gap (3-11) BUN (7-18) mg/dl Creatinine (0.6-1.2) mg/dl Est Cr Clr Drug Dosing ml/min Est GFR ( Amer) Est GFR (Non-Af Amer) BUN/Creatinine Ratio (10-20) Glucose (70-99) mg/dl POC Glucose 159 H (70-99) mg/dl Estimat Average Glucose mg/dl Hemoglobin A1c (4.5-5.6) % Calcium (8.5-10.1) mg/dl Magnesium (1.8-2.4) mg/dl Total Bilirubin (0.2-1) mg/dl AST (15-37) U/L ALT (12-78) U/L Alkaline Phosphatase (45-117) U/L Total Protein (6.4-8.2) gm/dl Albumin (3.4-5.0) gm/dl Globulin (2.5-4.0) gm/dl Albumin/Globulin Ratio (0.9-2) Triglycerides (0-150) mg/dl Cholesterol (0-200) mg/dl LDL Cholesterol, Calc mg/dl VLDL Cholesterol, Calc mg/dl HDL Cholesterol mg/dl Cholesterol/HDL Ratio Lipase (73-393) U/L TSH (0.300-4.500) uIu/ml Specimen Hemolysis Urine Color Urine Appearance (Clear) Urine pH (4.5-7.5) Ur Specific Emery (1.000-1.030) Urine Protein (Negative) Urine Glucose (UA) (Negative) Urine Ketones (Negative) Urine Blood (Negative) Urine Nitrite (Negative) Urine Bilirubin (Negative) Urine Urobilinogen (Negative) Ur Leukocyte Esterase (Negative) Urine Opiates Screen Neg (Neg) Ur Methadone, Qual Neg (Neg) Urine Barbiturates Neg (Neg) Ur Phencyclidine (PCP) Neg (Neg) U Amphetamin/Meth Scrn Neg (Neg) MDMA (Ecstasy) Screen Neg (Neg) U Benzodiazepines Scrn Neg (Neg) Ur Cocaine Metabolite Neg (Neg) U Marijuana (THC) Screen Neg (Neg) Ethyl Alcohol mg/dL (0-3) mg/dl COVID-19 Eval Order SARS-CoV-2 (PCR) (Negative) Influenza Type A (PCR) (Neg) Influenza Type B (PCR) (Neg) RSV (RT-PCR) (Neg) 09/04/20 09/04/20 09/04/20 Range/Units 21:25 21:25 17:46 WBC (4.8-10.8) K/uL RBC (4.2-5.4) M/uL Hgb (12.0-16.0) g/dL Hct (37-47) % MCV (80-100) fL MCH (25-34) pg MCHC (32-36) g/dL RDW Std Deviation (36.4-46.3) fL RDW Coeff of Meliton (11.5-14.5) % Plt Count (130-400) K/uL MPV (7.4-10.4) fL Immature Gran % (Auto) % Neut % (Auto) % Lymph % (Auto) % [place] % (Auto) % Eos % (Auto) % Baso % (Auto) % Neut # (Auto) (1.4-6.5) K/uL Lymph # (Auto) (1.2-3.4) K/uL [place] # (Auto) (0.11-0.59) K/uL Eos # (Auto) (0-0.5) K/uL Baso # (Auto) (0-0.2) K/uL Immature Gran # (Auto) (0.00-0.02) K/uL Sodium (136-145) mmol/L Potassium 4.0 (3.5-5.1) mmol/L Chloride (98-107) mmol/L Carbon Dioxide (21-32) mmol/L Anion Gap (3-11) BUN (7-18) mg/dl Creatinine (0.6-1.2) mg/dl Est Cr Clr Drug Dosing ml/min Est GFR ( Amer) Est GFR (Non-Af Amer) BUN/Creatinine Ratio (10-20) Glucose (70-99) mg/dl POC Glucose (70-99) mg/dl Estimat Average Glucose mg/dl Hemoglobin A1c (4.5-5.6) % Calcium (8.5-10.1) mg/dl Magnesium (1.8-2.4) mg/dl Total Bilirubin (0.2-1) mg/dl AST 35 (15-37) U/L ALT (12-78) U/L Alkaline Phosphatase (45-117) U/L Total Protein (6.4-8.2) gm/dl Albumin (3.4-5.0) gm/dl Globulin (2.5-4.0) gm/dl Albumin/Globulin Ratio (0.9-2) Triglycerides 1889 H (0-150) mg/dl Cholesterol 304 H (0-200) mg/dl LDL Cholesterol, Calc mg/dl VLDL Cholesterol, Calc mg/dl HDL Cholesterol 26 mg/dl Cholesterol/HDL Ratio 12 Lipase (73-393) U/L TSH (0.300-4.500) uIu/ml Specimen Hemolysis Urine Color Urine Appearance (Clear) Urine pH (4.5-7.5) Ur Specific Emery (1.000-1.030) Urine Protein (Negative) Urine Glucose (UA) (Negative) Urine Ketones (Negative) Urine Blood (Negative) Urine Nitrite (Negative) Urine Bilirubin (Negative) Urine Urobilinogen (Negative) Ur Leukocyte Esterase (Negative) Urine Opiates Screen (Neg) Ur Methadone, Qual (Neg) Urine Barbiturates (Neg) Ur Phencyclidine (PCP) (Neg) U Amphetamin/Meth Scrn (Neg) MDMA (Ecstasy) Screen (Neg) U Benzodiazepines Scrn (Neg) Ur Cocaine Metabolite (Neg) U Marijuana (THC) Screen (Neg) Ethyl Alcohol mg/dL < 3.0 (0-3) mg/dl COVID-19 Eval Order SARS-CoV-2 (PCR) (Negative) Influenza Type A (PCR) (Neg) Influenza Type B (PCR) (Neg) RSV (RT-PCR) (Neg) 09/04/20 09/04/20 09/04/20 Range/Units 17:32 17:32 13:57 WBC (4.8-10.8) K/uL RBC (4.2-5.4) M/uL Hgb (12.0-16.0) g/dL Hct (37-47) % MCV (80-100) fL MCH (25-34) pg MCHC (32-36) g/dL RDW Std Deviation (36.4-46.3) fL RDW Coeff of Meliton (11.5-14.5) % Plt Count (130-400) K/uL MPV (7.4-10.4) fL Immature Gran % (Auto) % Neut % (Auto) % Lymph % (Auto) % [place] % (Auto) % Eos % (Auto) % Baso % (Auto) % Neut # (Auto) (1.4-6.5) K/uL Lymph # (Auto) (1.2-3.4) K/uL [place] # (Auto) (0.11-0.59) K/uL Eos # (Auto) (0-0.5) K/uL Baso # (Auto) (0-0.2) K/uL Immature Gran # (Auto) (0.00-0.02) K/uL Sodium (136-145) mmol/L Potassium (3.5-5.1) mmol/L Chloride (98-107) mmol/L Carbon Dioxide (21-32) mmol/L Anion Gap (3-11) BUN (7-18) mg/dl Creatinine (0.6-1.2) mg/dl Est Cr Clr Drug Dosing ml/min Est GFR ( Amer) Est GFR (Non-Af Amer) BUN/Creatinine Ratio (10-20) Glucose (70-99) mg/dl POC Glucose (70-99) mg/dl Estimat Average Glucose mg/dl Hemoglobin A1c (4.5-5.6) % Calcium (8.5-10.1) mg/dl Magnesium (1.8-2.4) mg/dl Total Bilirubin (0.2-1) mg/dl AST (15-37) U/L ALT (12-78) U/L Alkaline Phosphatase (45-117) U/L Total Protein (6.4-8.2) gm/dl Albumin (3.4-5.0) gm/dl Globulin (2.5-4.0) gm/dl Albumin/Globulin Ratio (0.9-2) Triglycerides (0-150) mg/dl Cholesterol (0-200) mg/dl LDL Cholesterol, Calc mg/dl VLDL Cholesterol, Calc mg/dl HDL Cholesterol mg/dl Cholesterol/HDL Ratio Lipase (73-393) U/L TSH (0.300-4.500) uIu/ml Specimen Hemolysis Urine Color Yellow Urine Appearance Clear (Clear) Urine pH 5.0 (4.5-7.5) Ur Specific Emery 1.007 (1.000-1.030) Urine Protein Negative (Negative) Urine Glucose (UA) Trace H (Negative) Urine Ketones Negative (Negative) Urine Blood Negative (Negative) Urine Nitrite Negative (Negative) Urine Bilirubin Negative (Negative) Urine Urobilinogen Negative (Negative) Ur Leukocyte Esterase Negative (Negative) Urine Opiates Screen (Neg) Ur Methadone, Qual (Neg) Urine Barbiturates (Neg) Ur Phencyclidine (PCP) (Neg) U Amphetamin/Meth Scrn (Neg) MDMA (Ecstasy) Screen (Neg) U Benzodiazepines Scrn (Neg) Ur Cocaine Metabolite (Neg) U Marijuana (THC) Screen (Neg) Ethyl Alcohol mg/dL (0-3) mg/dl COVID-19 Eval Order CovFluRsv at [facility] SARS-CoV-2 (PCR) NEGATIVE (Negative) Influenza Type A (PCR) Negative (Neg) Influenza Type B (PCR) Negative (Neg) RSV (RT-PCR) Negative (Neg) 09/04/20 09/04/20 Range/Units 13:57 13:57 WBC 9.68 (4.8-10.8) K/uL RBC 5.04 (4.2-5.4) M/uL Hgb 15.4 (12.0-16.0) g/dL Hct 42.9 (37-47) % MCV 85.1 (80-100) fL MCH 30.6 (25-34) pg MCHC 35.9 (32-36) g/dL RDW Std Deviation 41.8 (36.4-46.3) fL RDW Coeff of Meliton 13.6 (11.5-14.5) % Plt Count 170 (130-400) K/uL MPV 10.2 (7.4-10.4) fL Immature Gran % (Auto) 0.9 % Neut % (Auto) 65.2 % Lymph % (Auto) 27.2 % [place] % (Auto) 5.1 % Eos % (Auto) 0.9 % Baso % (Auto) 0.7 % Neut # (Auto) 6.31 (1.4-6.5) K/uL Lymph # (Auto) 2.63 (1.2-3.4) K/uL [place] # (Auto) 0.49 (0.11-0.59) K/uL Eos # (Auto) 0.09 (0-0.5) K/uL Baso # (Auto) 0.07 (0-0.2) K/uL Immature Gran # (Auto) 0.09 H (0.00-0.02) K/uL Sodium 135 L (136-145) mmol/L Potassium (3.5-5.1) mmol/L Chloride 103 (98-107) mmol/L Carbon Dioxide 26 (21-32) mmol/L Anion Gap 6.0 (3-11) BUN 12 (7-18) mg/dl Creatinine 0.65 (0.6-1.2) mg/dl Est Cr Clr Drug Dosing 104.0 ml/min Est GFR ( Amer) 120.0 Est GFR (Non-Af Amer) 103.5 BUN/Creatinine Ratio 17.8 (10-20) Glucose 198 H (70-99) mg/dl POC Glucose (70-99) mg/dl Estimat Average Glucose mg/dl Hemoglobin A1c (4.5-5.6) % Calcium 8.9 (8.5-10.1) mg/dl Magnesium (1.8-2.4) mg/dl Total Bilirubin 0.5 (0.2-1) mg/dl AST (15-37) U/L ALT 67 (12-78) U/L Alkaline Phosphatase 152 H (45-117) U/L Total Protein 7.9 (6.4-8.2) gm/dl Albumin 3.9 (3.4-5.0) gm/dl Globulin 3.8 (2.5-4.0) gm/dl Albumin/Globulin Ratio 1.0 (0.9-2) Triglycerides (0-150) mg/dl Cholesterol (0-200) mg/dl LDL Cholesterol, Calc mg/dl VLDL Cholesterol, Calc mg/dl HDL Cholesterol mg/dl Cholesterol/HDL Ratio Lipase 1475 H (73-393) U/L TSH (0.300-4.500) uIu/ml Specimen Hemolysis Urine Color Urine Appearance (Clear) Urine pH (4.5-7.5) Ur Specific Emery (1.000-1.030) Urine Protein (Negative) Urine Glucose (UA) (Negative) Urine Ketones (Negative) Urine Blood (Negative) Urine Nitrite (Negative) Urine Bilirubin (Negative) Urine Urobilinogen (Negative) Ur Leukocyte Esterase (Negative) Urine Opiates Screen (Neg) Ur Methadone, Qual (Neg) Urine Barbiturates (Neg) Ur Phencyclidine (PCP) (Neg) U Amphetamin/Meth Scrn (Neg) MDMA (Ecstasy) Screen (Neg) U Benzodiazepines Scrn (Neg) Ur Cocaine Metabolite (Neg) U Marijuana (THC) Screen (Neg) Ethyl Alcohol mg/dL (0-3) mg/dl COVID-19 Eval Order SARS-CoV-2 (PCR) (Negative) Influenza Type A (PCR) (Neg) Influenza Type B (PCR) (Neg) RSV (RT-PCR) (Neg) (1) Acute pancreatitis Acute pancreatitis complication: unspecified Pancreatitis type: unspecified pancreatitis type Qualified Code(s): K85.90 - Acute pancreatitis without necrosis or infection, unspecified
[2020-09-05] MEDS: MAGNESIUM SULFATE / D5W 1 GM/100 ML BAG IV SCH ×2 (10:34→12:22)
[2020-09-05] MEDS ORDERED: LORazepam 0.5 MG TAB PO STA (20:34)
[2020-09-06] MEDS: LACTATED RINGER'S 1,000 ML IV SCH (05:58)
[2020-09-06] MEDS: LEVOTHYROXINE SODIUM 125 MCG TABLET PO SCH (05:58)
[2020-09-06 07:35] LABS: Hematocrit (blood only) 41.4 % (37-47); Hemoglobin 14.6 g/dL (12.0-16.0); Mean Corpuscular Hemoglobin 30.1 pg (25-34); Mean Corpuscular Hgb Conc 35.3 g/dL (32-36); Mean Corpuscular Volume 85.4 fL (80-100); Platelet Count 159 K/uL (130-400); RDW Coefficient of Variation 13.8 % (11.5-14.5); RDW Standard Deviation 43.1 fL (36.4-46.3); Red Blood Count 4.85 M/uL (4.2-5.4); White Blood Count 6.26 K/uL (4.8-10.8)
[2020-09-06] MEDS: FAMOTIDINE 10 MG TABLET PO SCH (07:36)
[2020-09-06] MEDS: amLODIPine BESYLATE 5 MG TAB PO SCH (07:36)
[2020-09-06] MEDS: ursodioL 300 MG CAP PO SCH (07:37)
[2020-09-06 08:05] LABS: Albumin Level 3.4 gm/dl (3.4-5.0); BUN Creatinine Ratio 7.3 (10-20); Bilirubin,Total 0.5 mg/dl (0.2-1); Calcium 9.2 mg/dl (8.5-10.1); Creatinine Clr Calc Pharmacy 107.1 ml/min; Est GFR (African American) 121.2; Est GFR (Non-African American) 104.6; Globulin 3.2 gm/dl (2.5-4.0); Potassium 3.6 mmol/L (3.5-5.1); Total Protein 6.6 gm/dl (6.4-8.2)
--- NOTE | 2020-09-06 08:27 | Discharge Summary ---
Date of Service September 06, 2020 Admission HPI Per Admitting Provider Patient is a 50-year-old female with history of type 2 diabetes mellitus, tobacco use disorder, hypothyroidism, dyslipidemia, history of pancreatitis and other medical problems presents with history of abdominal distention, fullness associated with epigastric pain. Patient states that even with minimal food intake, patient feels distended and full since 1 week duration. She admits to having multiple episodes of pancreatitis in the past which she attributes to gallbladder sludge and states that she is planned to be seen by a surgeon for gallbladder removal. She denies any recent alcohol use. She is reports ab dominal pain which is epigastric in location, nonradiating, 6/10 intensity, no aggravating or relieving factors. She was started on ursodiol recently by her PCP. She was diagnosed to have type 2 diabetes mellitus but currently not taking any medications. Denies any history of chest pain, SOB, palpitations, dizziness, pedal edema, cough, fever, chills, headache, weakness, nausea, vomiting, diarrhea, dysuria, recent travel, sick contact. Admission Exam Per Admitting Provider Physical Exam: Vitals signs as noted above General Appearance:Moderately built and nourished, no apparent distress Head: normocephalic, Atraumatic Eyes: normal inspection, EOMI Neck: supple, Trachea midline Respiratory/Chest: Normal breath sounds, CTA, No accessory muscle use Cardiovascular: S1, S2, No murmur Abdomen/GI:Soft, Epigastric tender, Bowel sounds present Extremities/Musculoskeletal:normal inspection, no edema Neurologic/Psych:AAOX3, grossly no focal neurological deficits Skin: normal color, warm Principal Diagnosis Acute pancreatitis: Hypertension DM Type II: Hypothyroidism Dyslipidemia Tobacco use disorder Discharge Exam See below Discharge Data Allergies Allergy/AdvReac Type Severity Reaction Status Date / Time No Known Allergies Allergy Verified 09/04/20 15:02 Consultations 09/04/20 17:55 ED Decision to Admit Stat 09/04/20 21:08 Consult Gastroenterology Routine Ordered Studies 09/04/20 13:28 CT abd pelvis IV con only Stat 09/04/20 21:08 US gallbladder Routine Current Diagnoses Acute pancreatitis without necrosis or infection, unspecified (09/04/20) Allergies No Known Allergies Allergy (Verified 09/04/20 15:02) Height/Weight/Isolation Height 5 ft 4 in Weight 76.7 kg Chemistry 09/04/20 09/04/20 09/05/20 13:57 17:46 06:56 Sodium 135 L 135 L Potassium 4.0 3.6 Chloride 103 104 Carbon Dioxide 26 26 Anion Gap 6.0 6.0 BUN 12 9 Creatinine 0.65 0.53 L Glucose 198 H 223 H 09/06/20 06:51 Sodium 138 Potassium 3.6 Chloride 106 Carbon Dioxide 26 Anion Gap 6.0 BUN 5 L Creatinine 0.63 Glucose 191 H Urinalysis 09/04/20 13:57 Urine Color Yellow Urine Appearance Clear Urine pH 5.0 Ur Specific [place] 1.007 Urine Protein Negative Urine Glucose (UA) Trace H Urine Ketones Negative Urine Blood Negative Urine Nitrite Negative Urine Bilirubin Negative Diabetes Follow up Diabetes Follow-up Needed for HgbA1c >9% Hospital Course (1) Acute pancreatitis: Acute Pancreatitis: H/O multiple episodes of pancreatitis -CT ABD: Possible low-grade enteritis. Colonic diverticulosis. No evidence for acute diverticulitis. No evidence for bowel obstruction. Normal appendix. A few scattered hypervascular lesions within the right hepatic lobe. These are technically indeterminate but could represent flash filling hemangiomas. Hepatomegaly demonstrating fatty change. Start Clears, Pain gone, feels hungry Resume IV fluids Lipase levels elevated: 1475 --->975--->290 today Denies an recent Alcohol use Check Tox Screen, Alcohol levels Check lipid panel-TG Elevated Pain control Monitor LFTs Continue ursodiol Started on Pepcid Hypertension BP elevated likely situational Started on Amlodipine DM Type II: Poorly controlled Currently not on meds Last A1c:9.2 on 09/17/18 Start on Insulin therapy Monitor BGs Hypothyroidism Continue levothyroxine Check TSH Dyslipidemia Currently not on any meds Check lipid panel in a.m. Tobacco use disorder Counseled to quit tobacco Refuses nicotine patch DVT Px: SCDs CODE STATUS Full code Labs Checked DC home today, Adv diet, Jardiance and Metformin, Glucometer, DM Supplies ROS-No Headache, No Visual Changes, No Nausea, No Vomiting, No Fever, No Chills, No Neck Pain or Stiffness, No Chest Pain, No Palpitations, No SOB, No DOBBINS, No Cough, No Sputum, No Wheezing, No Abdominal Pain, No Diarrhea, No Hematemesis, N o Hemoptysis, No Unexpected Weight Loss, No Flank pain, No Melena, No Hematochezia, No Frequency, No Urgency, No Burning, No Hematuria, No Rashes, No Diaphoresis. Appetite is Normal Physical Exam Gen-AAO x 3, NAD, Afebrile Head-NCAT, EOMI, PERRLA, Anicteric Sclera, No Posterior Pharyngeal Erythema Neck-Supple, No JVD, No Thyromegaly, No Masses, No LAD, No Bruits Lungs-Clear to Auscultation Bilaterally, No Rales, No Rhonchi, No Wheezing, No Crepitus Chest-No S4, +S1, +S2, No S3, No Murmurs, No Rubs, No Gallops, No Ectopy Abdomen-Soft, Bowel Sounds Present, Non Tender, Non Distended, No Hepatomegaly, No Splenomegaly, No Palpable Masses, No Rebound, No Rigidity, No Guarding Musculoskeletal-Full Range of Motion Bilaterally, No CVAT Extremities-No Cyanosis, No Clubbing, No Edema Nuero-Cranial Nerves II-XII grossly intact, Motor WNL, DTRs WNL, Strength WNL, Non Focal Psych-Normal Mood Total Time Total Time Spent Total Time Spent (In Minutes): 45 min Total Time Includes: Examination of the Patient, Discharge Planning, Medication Reconciliation and Communication With Other Providers Discharge Plan Discharge Items Patient Disposition: Home - Self-Care Reason For Visit: RECURRENT PANCREATITIS Discharge Diagnosis: Acute pancreatitis: Hypertension DM Type II: Hypothyroidism Dyslipidemia Tobacco use disorder Condition on Discharge: Good Health Concerns: Recurrent Pancreatitis Activity: Resume your previous activity Bathing: No limitations Sexual Activity: When tolerated Exercise/Sports: Gradually increase as tolerated Driving/Machine Use: No limitations Weightbearing: Full weightbearing Non-emergency contact: Primary Care Provider and Order Takers Supervisor Call non-emergency contact if: you have any medication questions Follow-up/Referrals: Edwin Espinoza MD [Primary Care Provider] - Diet: Carb Consistent or DM2 Addtl Attending Provider Instructions: If your pain returns resume a clear liquid diet for 2 days or return to ER Pending Studies at Discharge: No Stand-Alone Forms: My Truckily, Smoking Cessation Medications and DC Order Prescriptions: New acetaminophen 325 mg Tablet 650 mg PO Q4H PRN (Reason: fever or pain) Qty: 30 RF: 0 amlodipine [Norvasc] 5 mg Tablet 5 mg PO QAM Qty: 30 RF: 0 famotidine [Acid [employer] (famotidine)] 10 mg Tablet 10 mg PO BID Qty: 60 RF: 0 metformin 500 mg tablet 500 mg PO DAILY Qty: 30 RF: 0 Jardiance 10 mg tablet 10 mg PO DAILY Qty: 30 RF: 0 Continued levothyroxine [Levoxyl] 125 mcg tablet 125 mcg PO QAM RF: 0 ursodiol 300 mg capsule 300 mg PO BID RF: 0 hydroxyzine pamoate [Vistaril] 25 mg capsule See Rx Instructions .ROUTE .COMPLEX RF: 0 Discharge Orders: Discharge Order (Routine); Ordered 09/06/20 Ordered By: Ashish Ward/Other Patient Handouts: Diabetes and Drinking Alcohol, Diabetes and Heart Disease, Diabetes Treat Severe Foot Infecs, Diabetes: Keeping Feet Healthy, Diabetes: Inspecting Your Feet, Diabetes Shopping Preparing Meals, Diabetes: Caring for Your Body, Diabetes and Kidney Disease, Diabetes Exercise Get Started, Diabetes: Activity Tips, Diabetes Learn Serve Portion Size, Diabetes: Meal Planning, Diabetes Tracking Your Fitness ..., Diabetes Carbs Fats Protein, Diabetes: Ways to Take Medicine, Diabetes: My Exam and Test Results, Diabetes and High Blood Pressure Admission Data Admit Date/Time: 09/04/20 19:03 Attending Provider: Ashish Weston Admit Provider: Bang Cruz Primary Care Provider: Edwin Espinoza Other Providers: Bang Cruz ; Cr Carter ; Meli Helton ; Albertina Martinez ; Angie Park ; Lloyd Smart ; Mundo Bella ; Lawson Ko ; Yair Lange ; Qasim Ojeda ; Ela Lin ; Hiwot Lopez ; Jimena Hargrove ; Dulce Ulloa ; Lesa Hartman
[2020-09-06] MEDS: INSULIN ASPART 100 UNITS/ML 3 ML PEN SC SCH (09:45)
== END 2020-09-06 10:55 | disposition home or self-care (01) | DRG 440 ==
LOC: ED 12:59 → SUATTDRO 19:03 → 2N 19:03 → 3E 09-05 22:43

== ENCOUNTER 2021-02-22 14:50 | Inpatient (IN) ==
[2021-02-22] MEDS ORDERED: ASPIRIN CHEW 324 MG PO STA (15:08)
[2021-02-22] MEDS ORDERED: HEPARIN (PORCINE) 1000 UNIT/ML 10 ML (CATH LAB USE ONLY) ONE (15:12)
[2021-02-22] MEDS ORDERED: niCARdipine HCL INJ 2.5 MG/ML 10 ML AMP ONE (15:12)
[2021-02-22] MEDS ORDERED: MIDAZOLAM HCL 1 MG/ML 2ML VIAL ONE ×2 (15:12→15:54)
[2021-02-22] MEDS ORDERED: fentaNYL citrate 100 MCG/2 ML VIAL ONE ×2 (15:13→15:14)
[2021-02-22] MEDS ORDERED: NITROGLYCERIN/D5W 100MCG/ML 20ML SYR ONE (15:13)
[2021-02-22] MEDS ORDERED: ONDANSETRON INJ 2 MG/ML 2 ML VIAL ONE (15:20)
[2021-02-22 15:22] LABS: Basophils # (auto) 0.06 K/uL (0-0.2); Basophils % (auto) 0.6 %; Eosinophils # (auto) 0.07 K/uL (0-0.5); Eosinophils % (auto) 0.7 %; Hematocrit (blood only) 44.1 % (37-47); Hemoglobin 15.5 g/dL (12.0-16.0); Immature Granulocytes # (auto) 0.07 K/uL (0.00-0.02); Immature Granulocytes % (auto) 0.7 %; Lymphocytes % (auto) 29.6 %; Mean Corpuscular Hemoglobin 29.8 pg (25-34); Mean Corpuscular Hgb Conc 35.1 g/dL (32-36); Mean Corpuscular Volume 84.8 fL (80-100); Mean Platelet Volume 9.7 fL (7.4-10.4); Monocytes # (auto) 0.58 K/uL (0.11-0.59); Monocytes % (auto) 5.7 %; Neutrophils # (auto) 6.37 K/uL (1.4-6.5); Neutrophils % (auto) 62.7 %; Platelet Count 219 K/uL (130-400); RDW Standard Deviation 42.7 fL (36.4-46.3); White Blood Count 10.15 K/uL (4.8-10.8)
--- NOTE | 2021-02-22 15:25 | XRay Report ---
XR chest 1V portable CLINICAL HISTORY: Chest Pain COMPARISON STUDY: No previous studies for comparison. FINDINGS: Lung volumes are normal. Lungs are clear. There is no pneumothorax or pleural effusion. Car diac size is normal. Mediastinal contours are normal. There is no evidence for pulmonary edema. Incid ental note is made of surgical clips which project over the upper mediastinum/lower neck as well as p ostoperative findings within the left shoulder. Slight interstitial prominence is likely within millicent l limits. IMPRESSION: No acute cardiopulmonary findings. ACT 112: Negative or not required by law. Electronically signed by: Scott Milner M.D. 02/22/2021 3:24 PM
--- NOTE | 2021-02-22 15:25 | Emergency Department Note ---
Impression & Plan ST elevation myocardial infarction (STEMI) Patient was transferred emergently to the cardiac catheterization lab for def initive care. ED Provider Note HPI: The patient is a very pleasant 50-year-old female with history of hypertension, hyperlipidemia, active smoker, presents to the emergency department with a chief complaint of epigastric pain.Patient states that her symptoms began around 630 this morning, she states that initially the pain felt similar to that that she has had in the past with acid reflux. Patient states that the symptoms progressed throughout the day to the point where she was more uncomfortable and therefore presented to the emergency department for evaluation. On arrival to the ED the patient does appear uncomfortable, EKG was performed in triage and is obvious for ST elevation, heart alert was activated. Patient is otherwise hemodynamically stable, saturating well on room air. ROS: - Cardio: Epigastric pain/chest discomfort *10 point review systems was conducted and is otherwise negative unless stated above PE: General: Alert and oriented, Mild distress secondary to pain HEENT: Normocephalic, atraumatic, trachea midline Eyes: Extraocular eye movement is intact, no scleral erythema Pulmonary: Clear to auscultation bilaterally, no wheezing Cardio: Regular rate and rhythm GI: Abdomen is soft, nontender : No suprapubic tenderness, no flank tenderness to palpation bilaterally MSK: No evidence of trauma or malformation of the extremities, no edema Skin: No evidence of rash Neuro: Alert, no focal deficits Psychiatric: Cooperative Labs: [Ordered] Imaging: [Chest x-ray reviewed] Medications: Fentanyl, Zofran, p.o. aspirin EKG: - Time:1508 - Rate:74 - Rhythm:Normal sinus rhythm - Intervals:Within normal limits - ST changes: SHELDON noted in leads II, III, avF Medical Decision Making: Patient was assessed emergently at the bedside, currently hypertensive at 170/130, saturating well on room air. Heart alert was activated secondary to EKG changes noted with significant ST elevation in the inferior leads with reciprocal depression. Patient was given aspirin shortly after arrival, chest x- ray does not show any evidence of widened mediastinum, patient was given a dose of fentanyl for pain and a dose of Zofran for nausea. Shortly after arrival interventional cardiology arrived at the bedside, case was discussed with Dr. Veras, patient was transferred to the cardiac catheterization lab in stable condition for definitive care. CC Time: 30 minutes: Discussion with other physicians, time spent at the bedside, interpretation of diagnostic studies, management of ST elevation myocardial infarction * Diagnosis: ST elevation myocardial infarction * Disposition: Transfer to cardiac catheterization lab Tereso Clemente DO Emergency Medicine Past Med/Surg History Medical History Diabetes Diabetes mellitus, type II HLD (hyperlipidemia) HTN (hypertension) Hypothyroidism Post-surgical hypothyroidism Tobacco use Tobacco use disorder Surgical History History of delivery History of hysterectomy History of thyroidectomy Family History (Updated 02/22/21 @ 18:59 by Cb Tobias MD) Mother Diabetes Liver cirrhosis secondary to YOU Pulmonary hypertension Grandfather (Paternal) Coronary heart disease [place] in mid 40's Social History Smoking Status: Current every day smoker Tobacco Type: Cigarettes Cigarettes Per Day: 20; Second Hand Exposure: No; Do You Dip or Chew Tobacco: No; Tobacco Cessation Education Requested by Patient: Yes Hx Alcohol Use: No Hx Substance Use: No Preferred Language: Sinhala Communication Ability: Effective [employer] Supervisor Required: Yes Beliefs That Will Affect Care: None Current Living Situation: Alone Current Living Situation Comment: lives with son Other Information That Helps Us Care for You: No Feels Safe at Home: Yes Assistive Devices: None Allergies Allergies Allergy/AdvReac Type Severity Reaction Status Date / Time No Known Allergies Allergy Verified 02/22/21 15:21 Home Meds Home Medications Medication Instructions Recorded Confirmed hydroxyzine pamoate 25 mg capsule See Rx Instructions .ROUTE 09/04/20 02/22/21 (Vistaril) .COMPLEX PRN levothyroxine 125 mcg tablet 125 mcg PO QAM 09/04/20 02/22/21 (Levoxyl) ursodiol 300 mg capsule 300 mg PO BID 09/04/20 02/22/21 conjugated estrogens 0.625 mg/gram 0.625 mg VAGINAL DIRECTED PRN 02/22/21 02/22/21 vaginal cream (Premarin) fenofibrate nanocrystallized 145 145 mg PO DAILY 02/22/21 02/22/21 mg tablet glipizide 5 mg tablet 5 mg PO DAILY 02/22/21 02/22/21 metformin 500 mg tablet 500 mg PO QDD 02/22/21 02/22/21 ondansetron HCl 4 mg tablet 4 mg PO Q8H PRN 02/22/21 02/22/21 (Zofran) pantoprazole 40 mg tablet,delayed 40 mg PO DAILY 02/22/21 02/22/21 release Previous Rx's Medication Instructions Recorded acetaminophen 325 mg tablet 650 mg PO Q4H PRN #30 tab 09/06/20 amlodipine 5 mg tablet (Norvasc) 5 mg PO QAM #30 tab 09/06/20 famotidine 10 mg tablet (Acid 10 mg PO BID #60 tab 09/06/20 [employer] (famotidine)) Results & Data (ED) Vital Signs Vital Signs - 24 hr 02/22/21 14:58 02/22/21 15:10 02/22/21 15:16 Temperature 36.5 C 36.9 C Temperature Source Temporal Artery Scan Oral Pulse Rate 77 89 Pulse Rate [Apical] Respiratory Rate 18 13 Respiratory Effort / Characteristics Non-Labored Spontaneous Respiratory Depth Normal Blood Pressure 167/97 H 175/130 H Blood Pressure [Left Arm] Blood Pressure Mean 120 145 Blood Pressure Mean [Left Arm] Pulse Oximetry 99 Oxygen Delivery Method Room Air Sepsis Recent Fever Within 48 Hours No Sepsis New/Unexplained Change in Mental Status No Sepsis Action Taken by Nursing No Action Required 02/22/21 15:24 02/22/21 16:27 02/22/21 16:41 Temperature Temperature Source Pulse Rate Pulse Rate [Apical] 74 79 Respiratory Rate 17 17 Respiratory Effort / Characteristics Respiratory Depth Blood Pressure Blood Pressure [Left Arm] 120/77 120/78 Blood Pressure Mean Blood Pressure Mean [Left Arm] 91 92 Pulse Oximetry 93 96 Oxygen Delivery Method Room Air Room Air Room Air Sepsis Recent Fever Within 48 Hours Sepsis New/Unexplained Change in Mental Status Sepsis Action Taken by Nursing Laboratory Data Result diagrams: 02/22/21 15:12 02/22/21 15:12 Lab Results 02/22/21 02/22/21 02/22/21 Range/Units 15:12 15:12 15:12 WBC 10.15 (4.8-10.8) K/uL RBC 5.20 (4.2-5.4) M/uL Hgb 15.5 (12.0-16.0) g/dL Hct 44.1 (37-47) % MCV 84.8 (80-100) fL MCH 29.8 (25-34) pg MCHC 35.1 (32-36) g/dL RDW Std Deviation 42.7 (36.4-46.3) fL RDW Coeff of [place] 14.0 (11.5-14.5) % Plt Count 219 (130-400) K/uL MPV 9.7 (7.4-10.4) fL Immature Gran % (Auto) 0.7 % Neut % (Auto) 62.7 % Lymph % (Auto) 29.6 % [place] % (Auto) 5.7 % Eos % (Auto) 0.7 % Baso % (Auto) 0.6 % Neut # (Auto) 6.37 (1.4-6.5) K/uL Lymph # (Auto) 3.00 (1.2-3.4) K/uL [place] # (Auto) 0.58 (0.11-0.59) K/uL Eos # (Auto) 0.07 (0-0.5) K/uL Baso # (Auto) 0.06 (0-0.2) K/uL Immature Gran # (Auto) 0.07 H (0.00-0.02) K/uL APTT 27.2 (21.0-31.0) Seconds PTT Ratio 1.0 Activ Coag Time Kaolin (94-140) SECONDS Sodium 136 (136-145) mmol/L Potassium 3.6 (3.5-5.1) mmol/L Chloride 104 (98-107) mmol/L Carbon Dioxide 23 (21-32) mmol/L Anion Gap 9.0 (3-11) BUN 13 (7-18) mg/dl Creatinine 0.75 (0.6-1.2) mg/dl Est Cr Clr Drug Dosing 89.3 ml/min Est GFR ( Amer) 107.7 ml/min Est GFR (Non-Af Amer) 92.9 ml/min BUN/Creatinine Ratio 16.9 (10-20) Glucose 164 H (70-99) mg/dl Calcium 10.1 (8.5-10.1) mg/dl Total Bilirubin 0.3 (0.2-1) mg/dl AST 51 H (15-37) U/L ALT 85 H (12-78) U/L Alkaline Phosphatase 159 H (45-117) U/L Troponin I 0.045 (0-0.045) ng/ml Total Protein 8.6 H (6.4-8.2) gm/dl Albumin 4.6 (3.4-5.0) gm/dl Globulin 4.0 (2.5-4.0) gm/dl Albumin/Globulin Ratio 1.2 (0.9-2) Lipase 217 (73-393) U/L Specimen Hemolysis 02/22/21 Range/Units 15:56 WBC (4.8-10.8) K/uL RBC (4.2-5.4) M/uL Hgb (12.0-16.0) g/dL Hct (37-47) % MCV (80-100) fL MCH (25-34) pg MCHC (32-36) g/dL RDW Std Deviation (36.4-46.3) fL RDW Coeff of [place] (11.5-14.5) % Plt Count (130-400) K/uL MPV (7.4-10.4) fL Immature Gran % (Auto) % Neut % (Auto) % Lymph % (Auto) % [place] % (Auto) % Eos % (Auto) % Baso % (Auto) % Neut # (Auto) (1.4-6.5) K/uL Lymph # (Auto) (1.2-3.4) K/uL [place] # (Auto) (0.11-0.59) K/uL Eos # (Auto) (0-0.5) K/uL Baso # (Auto) (0-0.2) K/uL Immature Gran # (Auto) (0.00-0.02) K/uL APTT (21.0-31.0) Seconds PTT Ratio Activ Coag Time [place] 252 H (94-140) SECONDS Sodium (136-145) mmol/L Potassium (3.5-5.1) mmol/L Chloride (98-107) mmol/L Carbon Dioxide (21-32) mmol/L Anion Gap (3-11) BUN (7-18) mg/dl Creatinine (0.6-1.2) mg/dl Est Cr Clr Drug Dosing ml/min Est GFR ( Amer) ml/min Est GFR (Non-Af Amer) ml/min BUN/Creatinine Ratio (10-20) Glucose (70-99) mg/dl Calcium (8.5-10.1) mg/dl Total Bilirubin (0.2-1) mg/dl AST (15-37) U/L ALT (12-78) U/L Alkaline Phosphatase (45-117) U/L Troponin I (0-0.045) ng/ml Total Protein (6.4-8.2) gm/dl Albumin (3.4-5.0) gm/dl Globulin (2.5-4.0) gm/dl Albumin/Globulin Ratio (0.9-2) Lipase (73-393) U/L Specimen Hemolysis Administered Medications Sodium Chloride (Nss 1000ml) 1,000 mls @ 100 mls/hr IV .Q10H MARLA Stop: 02/23/21 00:14 Last Admin: 02/22/21 18:13 Dose: 100 mls/hr Documented by: [id number] Discontinued Medications Aspirin (Aspirin Chew 324 Mg) 324 mg PO NOW STA Stop: 02/22/21 15:09 Last Admin: 02/22/21 15:13 Dose: 324 mg Documented by: [id number] Fentanyl Citrate (Fentanyl Citrate 100 Mcg/2 Ml Vial) Confirm Administered Dose 100 mcg .ROUTE .STK-MED ONE Stop: 02/22/21 15:15 Last Admin: 02/22/21 15:22 Dose: 50 mcg Documented by: [id number] Ondansetron HCl (Ondansetron Inj 2 Mg/Ml 2 Ml Vial) Confirm Administered Dose 4 mg .ROUTE .STK-MED ONE Stop: 02/22/21 15:21 Last Admin: 02/22/21 15:23 Dose: 4 mg Documented by: [id number] Imaging Data Radiologist's Impression: Chest X-Ray 02/22/21 15:08 XR chest 1V portable CLINICAL HISTORY: Chest Pain COMPARISON STUDY: No previous studies for comparison. FINDINGS: Lung volumes are normal. Lungs are clear. There is no pneumothorax or pleural effusion. Cardiac size is normal. Mediastinal contours are normal. There is no evidence for pulmonary edema. Incidental note is made of surgical clips which project over the upper mediastinum/lower neck as well as postoperative findings within the left shoulder. Slight interstitial prominence is likely within normal limits. IMPRESSION: No acute cardiopulmonary findings. ACT 112: Negative or not required by law. Electronically signed by: Scott Milner M.D. 02/22/2021 3:24 PM Discharge Plan Visit Data Chief Complaint: Chest Pain Stated Complaint: CHEST PAIN ED Provider: Tereso Clemente Discharge Problem: ST elevation myocardial infarction (STEMI) Patient Disposition: Admitted As Inpatient Discharge Instructions Interventions: ED Discharge Assessment Last Done: 02/22/21 15:32
--- NOTE | 2021-02-22 15:29 | Pre Anesthesia Assessment ---
Date of Service February 22, 2021 Pre Sedation Assessment Vital Signs Temp Pulse Resp BP Pulse Ox 02/22/21 14:58 97.7 F 77 18 167/97 H 99 Cardiovascular RRR, no murmur, no edema Respiratory normal respiratory effort, lungs clear to auscultation Pre-Sedation Airway Assessment Smoking Status: Never smoker Hx Sleep Apnea: No Hx Difficult Intubation: No Short, Thick Neck: No Thyromental Distance: > or= 3.5 Finger Breadths Oral Cavity: + WNL Mallampati Class: III ASA: ASA4 Procedure Planning Contraindications for Sedation: none Current Medications Reviewed: Yes Notes The planned sedation has been discussed with the patient. Informed Consent was obtained. I have identified the patient, determined the appropriateness of sedation and have assessed the patient immediately prior to the procedure. All medicine(s) and interventions are by my order.
[2021-02-22 15:34] LABS: Partial Thromboplastin Time 27.2 Seconds (21.0-31.0)
--- NOTE | 2021-02-22 15:34 | Cardiology Consultation ---
Date of Consultation February 22, 2021 Assessment & Plan (1) Inferior AK: Presentation consistent with inferior STEMI and recommend proceeding with emergent cardiac catheterization and likely primary PCI. No apparent contraindications to procedure. Discussed risks, benefits, alternatives of procedure with patient and they are willing to proceed. Further recommendations pending findings of coronary angiography. History of Present Illness History of Present Illness 50-year-old woman here with acute chest pain and ECG concerning for acute AK. Patient seen emergently in the ED after heart alert activated upon arrival. No prior cardiac history. Cardiac risk factors include poorly controlled type 2 diabetes, hypertension, dyslipidemia with elevated triglycerides, ongoing tobacco use. Other medical issues include hypothyroidism and chronic pancreatitis. Stuttering chest pain began approximately 7 hours prior to arrival. Describes substernal pain with associated nausea, initially thought it was her reflux. On arrival hemodynamically stable. Mild residual chest pain after fentanyl, aspirin. ECG showed more than [address] elevation. Family history: No premature CAD. Mother had a cardiac cath in the setting of liver transplant. Social history: Ongoing smoker. 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 Allergies Allergy/AdvReac Type Severity Reaction Status Date / Time No Known Allergies Allergy Verified 02/22/21 15:21 Home Medications Medication Instructions Recorded Confirmed Type hydroxyzine pamoate 25 mg capsule See Rx Instructions .ROUTE 09/04/20 02/22/21 History (Vistaril) .COMPLEX PRN levothyroxine 125 mcg tablet 125 mcg PO QAM 09/04/20 02/22/21 History (Levoxyl) ursodiol 300 mg capsule 300 mg PO BID 09/04/20 02/22/21 History acetaminophen 325 mg tablet 650 mg PO Q4H PRN #30 tab 09/06/20 02/22/21 Rx amlodipine 5 mg tablet (Norvasc) 5 mg PO QAM #30 tab 09/06/20 02/22/21 Rx famotidine 10 mg tablet (Acid 10 mg PO BID #60 tab 09/06/20 02/22/21 Rx Senior Stock Plan Administrator (famotidine)) conjugated estrogens 0.625 mg/gram 0.625 mg VAGINAL DIRECTED PRN 02/22/21 02/22/21 History vaginal cream (Premarin) fenofibrate nanocrystallized 145 145 mg PO DAILY 02/22/21 02/22/21 History mg tablet glipizide 5 mg tablet 5 mg PO DAILY 02/22/21 02/22/21 History metformin 500 mg tablet 500 mg PO QDD 02/22/21 02/22/21 History ondansetron HCl 4 mg tablet 4 mg PO Q8H PRN 02/22/21 02/22/21 History (Zofran) pantoprazole 40 mg tablet,delayed 40 mg PO DAILY 02/22/21 02/22/21 History release Patient History Medical History Diabetes Hypothyroidism Tobacco use disorder Social History Smoking Status: Never smoker Tobacco Type: Cigarettes Cigarettes Per Day: 20; Second Hand Exposure: No; Hx Alcohol Use: No Hx Substance Use: No Preferred Language: Afghan Communication Ability: Effective Aviation Boatswain'S Mate Required: No Beliefs That Will Affect Care: None Current Living Situation: Alone Feels Safe at Home: Yes Assistive Devices: None Review of Systems Review of Systems: All systems reviewed & are unremarkable except as noted in HPI & below Not obtained in the setting of emergent situation Physical Exam Physical Exam: General: Comfortable HEENT: Sclerae anicteric, Mask in place Lungs: Clear to auscultation bilaterally, Cardiac: Regular rate and rhythm, no murmurs. Vascular: 2+ radial Abdomen: Soft, nontender Extremities: Well perfused, no peripheral edema Neuro: Nonfocal Psych: Alert orient x3, normal affect and mood Results & Data ([facility]) Vital Signs (Past 12 Hours) Vital Signs Temp Pulse Resp BP Pulse Ox 02/22/21 14:58 97.7 F 77 18 167/97 H 99 PG Care Time/CCT Total # of Minutes Spent Total Time Spent with Patient: Total time spent is greater than 50% in coordination of care (as documented) at patient's floor/unit and/or counseling patient: Coding Level of Care Code 79445 Inpt Consult Level 4 Diagnoses Inferior AK I21.19
[2021-02-22] MEDS ORDERED: ATROPINE SULFATE 0.1 MG/ML 10ML SYR IV ONE (15:39)
[2021-02-22] MEDS ORDERED: TICAGRELOR 90 MG TAB PO ONE (16:16)
--- NOTE | 2021-02-22 16:21 | Electrocardiogram Report ---
Test Reason : Blood Pressure : / mmHG Vent. Rate : 074 BPM Atrial Rate : 074 BPM P-R Int : 186 ms QRS Dur : 088 ms QT Int : 390 ms P-R-T Axes : 063 081 108 degrees QTc Int : 432 ms Age and gender specific ECG analysis Normal sinus rhythm Possible Left atrial enlargement ST elevation consider inferior injury or acute infarct ACUTE OR / STEMI Consider right ventricular involvement in acute inferior infarct Abnormal ECG No previous ECGs available Confirmed by Yair Bob ([id number]) on 02/22/2021 4:21:03 PM Referred By: REFERRED SELF Confirmed By:Yair Bob
[2021-02-22 16:32] LABS: Albumin Level 4.6 gm/dl (3.4-5.0); BUN Creatinine Ratio 16.9 (10-20); Calcium 10.1 mg/dl (8.5-10.1); Creatinine Clr Calc Pharmacy 89.3 ml/min; Est GFR (African American) 107.7 ml/min; Est GFR (Non-African American) 92.9 ml/min; Potassium 3.6 mmol/L (3.5-5.1)
--- NOTE | 2021-02-22 16:33 | History & Physical Report ---
Date of Service February 22, 2021 Assessment & Plan (1) STEMI (ST elevation myocardial infarction): Plan: Patient is 50-year-old female with PMH DM II, HTN, HLD, tobacco use, postsurgical hypothyroidism presented to ER with complaint of chest pain/epigastric pain since 6 AM. In ER was found to have ST elevation in inferior leads. Heart alert was called. Patient was given aspirin, heparin IV, ticagrelor 180mg. Troponin: 0.045 Pt was taken to boat laborer and 1 HARINI stent placed to RCA. ICU Repeat EKG in am Trend troponin Echo Lipid panel am Atorvastatin, metoprolol tartrate, ticagrelor, lisinopril, aspirin started A1c in a.m. Cardiology consult, appreciate input (2) Diabetes mellitus, type II: Plan: A1c: 7.8 on 12/07/2020 Hold home oral agents Insulin per protocol (3) HTN (hypertension): Plan: Hold home amlodipine Lisinopril, metoprolol titrate started (4) HLD (hyperlipidemia): Plan: Continue fenofibrate Atorvastatin added (5) Post-surgical hypothyroidism: Plan: TSH: 3.2 on 12/07/2020 Continue levothyroxine (6) Tobacco use: Plan: Smoking cessation encouraged Patient denies nicotine patch DVT Prophylaxis SCDs Full Code as per discussion with pt Follows with Dr Espinoza for routine care Pt was seen and care coordinated with Dr Thornton. See addendum History of Present Illness Chief Complaint: Chest pain/epigastric pain Primary Care Provider: Edwin Espinoza MD Patient is 50-year-old female with PMH DM II, HTN, HLD, tobacco use, postsurgical hypothyroidism presented to ER with complaint of chest pain/epigastric pain since 6 AM. States had nausea, and belching. Later felt like arms were heavy, felt anxious and "like something wasn't right" and came to ER. Reports history pancreatitis and has intermittent diarrhea. Denies fever/chills, diaphoresis, vomiting, hematochezia, melena, PATEL, dizziness, syncope, vision changes, neck pain, orthopnea, palpitations, cough, sore throat, choking, otalgia, rhinorrhea, abdominal pain, paresthesias, weakness, extremity weakness, extremity edema, rashes, urinary symptoms. In ER was found to have ST elevation in inferior leads. Heart alert was called. Patient was given aspirin, heparin IV, ticagrelor 180mg. Pt was taken to boat laborer and 1 HARINI stent placed to RCA. Allergies Allergy/AdvReac Type Severity Reaction Status Date / Time No Known Allergies Allergy Verified 02/22/21 15:21 Home Medications Medication Instructions Recorded Confirmed Type hydroxyzine pamoate 25 mg capsule See Rx Instructions .ROUTE 09/04/20 02/22/21 History (Vistaril) .COMPLEX PRN levothyroxine 125 mcg tablet 125 mcg PO QAM 09/04/20 02/22/21 History (Levoxyl) ursodiol 300 mg capsule 300 mg PO BID 09/04/20 02/22/21 History acetaminophen 325 mg tablet 650 mg PO Q4H PRN #30 tab 09/06/20 02/22/21 Rx amlodipine 5 mg tablet (Norvasc) 5 mg PO QAM #30 tab 09/06/20 02/22/21 Rx famotidine 10 mg tablet (Acid 10 mg PO BID #60 tab 09/06/20 02/22/21 Rx Sales Communications Manager (famotidine)) conjugated estrogens 0.625 mg/gram 0.625 mg VAGINAL DIRECTED PRN 02/22/21 02/22/21 History vaginal cream (Premarin) fenofibrate nanocrystallized 145 145 mg PO DAILY 02/22/21 02/22/21 History mg tablet glipizide 5 mg tablet 5 mg PO DAILY 02/22/21 02/22/21 History metformin 500 mg tablet 500 mg PO QDD 02/22/21 02/22/21 History ondansetron HCl 4 mg tablet 4 mg PO Q8H PRN 02/22/21 02/22/21 History (Zofran) pantoprazole 40 mg tablet,delayed 40 mg PO DAILY 02/22/21 02/22/21 History release Past Med/Surg History Medical History Diabetes Diabetes mellitus, type II HLD (hyperlipidemia) HTN (hypertension) Hypothyroidism Post-surgical hypothyroidism Tobacco use Tobacco use disorder Surgical History History of delivery History of hysterectomy History of thyroidectomy Family History (Updated 02/22/21 @ 18:59 by Cb Tobias MD) Mother Diabetes Liver cirrhosis secondary to YOU Pulmonary hypertension Grandfather (Paternal) Coronary heart disease [place] in mid 40's Social History Smoking Status: Current every day smoker Tobacco Type: Cigarettes Cigarettes Per Day: 20; Second Hand Exposure: No; Do You Dip or Chew Tobacco: No; Tobacco Cessation Education Requested by Patient: Yes Hx Alcohol Use: No Hx Substance Use: No Preferred Language: Serbian Communication Ability: Effective Research Fellow Required: Yes Beliefs That Will Affect Care: None Current Living Situation: Alone Current Living Situation Comment: lives with son Other Information That Helps Us Care for You: No Feels Safe at Home: Yes Assistive Devices: None and Glasses Review of Systems Review of Systems: All systems reviewed & are unremarkable except as noted in HPI & below Physical Exam Physical Exam: General: no distress, overweight Head: normocephalic, atraumatic Eyes: conjunctiva non-injected, anicteric ENT: normal inspection external ears, nose, mucous membranes moist Neck: supple, trachea midline Lungs: clear, no respiratory distress, no wheezing/rhonchi/rales CV: RRR, no murmur, no pretibial edema Abd: normal BS, soft, non-tender Ext: no cyanosis, no calf tenderness; RUE: +wrist band in place without bleeding, able to move fingers Neuro: A&O x 3, no focal deficits noted, normal affect Skin: warm, dry Results & Data Results & Data ([facility]) Vital Signs (Past 12 Hours) Vital Signs Temp Pulse Pulse Resp BP BP Pulse Ox 02/22/21 16:27 74 17 120/77 93 02/22/21 14:58 36.5 C 77 18 167/97 H 99 Laboratory Results Short CBC 02/22/21 Range/Units 15:12 WBC 10.15 (4.8-10.8) K/uL Hgb 15.5 (12.0-16.0) g/dL Hct 44.1 (37-47) % Plt Count 219 (130-400) K/uL BMP 02/22/21 15:12 Sodium 136 Potassium 3.6 Chloride 104 Carbon Dioxide 23 BUN 13 Creatinine 0.75 Glucose 164 H Calcium 10.1 Cardiac Enzymes 02/22/21 Range/Units 15:12 Troponin I 0.045 (0-0.045) ng/ml Liver Function 02/22/21 Range/Units 15:12 Total Bilirubin 0.3 (0.2-1) mg/dl AST 51 H (15-37) U/L ALT 85 H (12-78) U/L Alkaline Phosphatase 155 H (45-117) U/L Albumin 4.6 (3.4-5.0) gm/dl Diagnostic Findings Chest X-Ray 02/22/21 15:08 XR chest 1V portable CLINICAL HISTORY: Chest Pain COMPARISON STUDY: No previous studies for comparison. FINDINGS: Lung volumes are normal. Lungs are clear. There is no pneumothorax or pleural effusion. Cardiac size is normal. Mediastinal contours are normal. There is no evidence for pulmonary edema. Incidental note is made of surgical clips which project over the upper mediastinum/lower neck as well as postoperative findings within the left shoulder. Slight interstitial prominence is likely within normal limits. IMPRESSION: No acute cardiopulmonary findings. ACT 112: Negative or not required by law. Electronically signed by: Scott Milner M.D. 02/22/2021 3:24 PM ECG Rate (beats per minute): 74 Rhythm: sinus rhythm Findings: + ST elevation (Inferior) Supervising Physician Co-Signing Physician Notes Pt seen and examined by me, care coordinated with Lacey Bernard PA-C, pls refer to her note above for further detail. Pt is a 50 y/o female with PMH DM II, HTN, HLD, tobacco use, postsurgical h ypothyroidism who presents w/chest pain/epigastric pain, found to have inferior STEMI and now s/p successful PCI to RCA. Currently pt is sitting up in bed in NAD, comfortable, eating dinner. Denies any chest pain, dizziness, lightheadedness, feels little short of breath with movement. She is alert oriented and answering questions appropriately. Lung sounds are clear, no wheezing, rhonchi, crackles. Heart sounds regular. Abdomen is soft, nontender, nondistended. There is no LE edema. Skin is warm, dry, well perfused. Right wrist band applied after cardiac cath. Continue to closely monitor in ICU overnight. Cardiology consulted and following. Pt is a current smoker and counseling was provided at the bedside. Hermelinda Thornton MD
[2021-02-22] MEDS ORDERED: ICU PROTOCOL FOR HYPERGLYCEMIA PRN ×2 (16:40→17:55)
[2021-02-22] MEDS ORDERED: ACETAMINOPHEN 325 MG TAB PO PRN (16:45)
[2021-02-22] MEDS ORDERED: SODIUM CHLORIDE 0.9% 1000ML 1,000 ML IV SCH (16:45)
--- NOTE | 2021-02-22 16:55 | Post Anesthesia Assessment ---
Date of Service February 22, 2021 Post Sedation Assessment Vital Signs Temp Pulse Pulse Resp BP BP Pulse Ox 02/22/21 16:41 79 17 120/78 96 02/22/21 16:27 74 17 120/77 93 02/22/21 14:58 97.7 F 77 18 167/97 H 99 Recovery Score Activity: Moves 4 extremities Respiration: Deep Breath/Cough Circulation: +/-20% PreAnes Value Consciousness: Fully Awake Oxygen Saturation: > 92% On Room Air Post Anesthesia Score: 10 Discharge Sedation Level of Care: Fast Track Phase II Post Sedation Plan On clinical assessment, the patient appears to have tolerated the sedation without complications. Patient is recovering as anticipated. Patient will continue to be monitored by nursing and may be discharged when sedation discharge criteria are met per below protocol. Upon Completions of procedure up to 15 minutes continue every 5 minute vital signs and the P.A.R. score; then discharge to a Phase I or Fast Track to Phase II per the following guidelines: * Discharge Patient to appropriate Phase II area if PAR is 8 or greater or return to pre- procedure baseline. The post - procedure orders will be as directed. * If PAR score is less than 8 or not return to pre-procedure baseline then patient will follow Phase I monitoring till PAR is reached for Phase II. The Phase I may be done in procedure room or may call to secure a Phase I area. * If naloxone or flumazenil are used for reversal, hold in Phase I for continued monitoring from when last reversal dose was given for a minimum of 60 minutes or longer pending the nurse and/or physician discretion of patient condition before discharge to Phase II. Please call the Sedation Physician to re-evaluate and complete post-note for discharge to Phase II area. Do NOT discharge from procedure sedation or Phase 1 until post- sedation evaluation note is complete by procedure /sedation MD Sedation Discharge Instructions to be given to the patient at discharge to home.
--- NOTE | 2021-02-22 17:09 | Cardiac Catheterization ---
[facility] Data: Cant Hooker Cardiac Status Clinical evaluation leading to the procedure CAD Presenation: STEMI Anginal Classification: CCS IV Heart Failure: No Cardiogenic Shock within 24 Hours: No Cardiac Arrest within 24 Hours: No Imaging Studies Past 6 Months: No Stress Studies Past 6 Months: No Diagnostic Physicians Name: Vikram Veras MD Status: Emergency Closure Device Percutaneous Entry Location: Radial Closure Device: Radial Band Recommendations: PCI without planned CABG PCI Indication: Immediate PCI for STEMI First Noted: First EKG Lesion Segment Name: Distal RCA Culprit Artery: Yes Stenosis Prior to Rx (%): 100 Chronic Total Occlusion: No IVUS: No FFR: No Pre-Procedure RIGOBERTO Flow: 0 Previously Treated Lesion: No Lesion Complexity: High/C Lesion Length (mm): 15 Thrombus Present: Yes Bifurcation Lesion: Yes Guidewire Across Lesion: Stenosis Post-Procedure (%): 0 Post-Procedure RIGOBERTO Flow: 3 Devices(s) Deployed: Yes Yes Intraprocedure Events Significant Disection: No Perforation: No Cardiac Cath Procedure Full Procedure Date February 22, 2021 Pre-Procedure Diagnosis Pre-Procedure Diagnosis: STEMI AUC Score AUC Score: 9 Post-Procedure Diagnosis Post-Procedure Diagnosis: Severe CAD Procedure(s) Performed Procedure(s) Performed: Coronary Angiography, Left Heart Cath and Drug Eluting Stent [facility] Vikram Veras MD Manager Environmental Health And Safety(s) Rusty Estimated Blood Loss Estimated Blood Loss: 15 Medication(s) Medication(s): Fentanyl, Heparin, Lidocaine 1%, Nicardipine and Versed Medication(s): Ticagrelor Summary of Findings Indication: STEMI/Heart Alert Access: 6 Fr right radial artery Catheters: [place], JR4 guide Findings: LM -Short, almost separate ostium, no significant disease LAD -medium caliber, 30% proximal, remainder of vessel without significant disease. Distal vessel wraps around apex. Medium D1 without disease. Circumflex -medium caliber, small distal circumflex 40 to 50% stenosis. Medium OM 2 with mild disease. RCA -dominant, medium caliber, 50 to 60% mid disease, diffuse 40% distal disease prior to 100% acute occlusion just before takeoff of PDA. LVEDP -17 -- PCI -- Antithrombotic therapy: Heparin, ticagrelor Procedure: RCA cannulated with JR4 guide Product Development Consultant 50 wire passed across lesion into distal PDA Distal RCA lesion predilated with 2.0 compliant balloon Second packing machine pilot can router 50 wire navigated into right PAV/PLB Dilated lesion stented with 2.5 x 18 mm [place] drug-eluting stent from distal RCA into PDA Stent post-dilated with stent balloon noncompliant balloon IC vasodilators administered for spasm New packing machine pilot can router 50 used to rewire across stent struts into posterior AV branch Stent struts into posterior AV branch dilated with 2.0 balloon Additional IC vasodilators administered Post procedure RIGOBERTO 3 flow throughout RCA system. Stent well expanded. Mild residual stenosis at takeoff of posterior AV branch but RIGOBERTO-3 flow. No other apparent cardiac complications. Arterial Closure: TR band Summary: 1. Inferior STEMI/acute 100% distal RCA occlusion just before bifurcation with PDA 2. Moderate non-culprit coronary artery disease -50 to 60% mid RCA, 40% earlydistal RCA 30% proximal LAD 50% small distal circumflex 3. Normal intracardiac filling pressure 4. Successful PCI of distal RCA into PDA with single drug-eluting stent (2.5 x 18 mm [place]). Angioplasty to ostium of jailed right posterior AV branch with 2.0 balloon Recommendations: Admit to ICU for continued monitoring Loaded with ticagrelor 180 mg in [place]er Continue dual-antiplatelet therapy for at least 1 year. Trend troponins until peak, Check Echo Uptitrate beta-emely/LB as BP allows High-dose statin Consult cardiac Rehab Hemodynamics Rest Ao:: 185/99/137 Final Ao: 116/62/80 LV: 114/17 Recommendations Recommendations: PCI without planned CABG Specimens Specimens: None Radiation Exposure (mGy) 1852 Contrast (mls) 90 Fluids (cc crystalloids) Fluids (cc crystalloids): 80 Drains Drains: None Anesthesia Moderate [id number] Procedural Complication(s) None Disposition ICU I attest to the content of the Intraoperative Record and any orders documented therein. Any exceptions are noted below. [facility] Card Cath Procedure Codes Cardiac Catheterization Procedure 1: Cardiovascular Cath Procedures: 82902 Coronaries and LHC (+/-LV) Moderate Sedation Procedure 1: Sedation/Anesthesia: 79730 Mod Sedation by the same physician;Init15 Min Child Age 5 & Up Procedure 2: Sedation/Anesthesia: 23408 Mod Sedation by the same physician; Ea [id number] Minutes Stenting Procedure 1: Cardiovascular Stent Procedures: 03531 Perc transluminal revascularization of acute sub/total occl, aMI PG Care Time/CCT Total # of Minutes Spent Total Time Spent with Patient: Total time spent is greater than 50% in coordination of care (as documented) at patient's floor/unit and/or counseling patient:
[2021-02-22 18:00] LABS: Albumin Globulin Ratio 1.2 (0.9-2); Bilirubin,Total 0.3 mg/dl (0.2-1); Total Protein 8.6 gm/dl (6.4-8.2); Troponin I 0.045 ng/ml (0-0.045)
--- NOTE | 2021-02-22 18:25 | Critical Care Consultation ---
Date of Consultation February 22, 2021 Assessment & Plan (1) STEMI (ST elevation myocardial infarction): (2) HTN (hypertension): (3) HLD (hyperlipidemia): (4) Inferior [place]: Patient is status post drug-eluting stent to the RCA. Hemodynamically stable at present. Obtain echocardiogram. Trend troponins. Continue atorvastatin, metoprolol, Brilinta, lisinopril and aspirin. Cardiology consultation appreciated. Continue home meds for hypertension. Smoking cessation encouraged given his tobacco abuse. Likely able to downgrade out of ICU tomorrow. History of Present Illness Reason for Consultation: Post ICU STEMI monitoring Attending Physician: Richard Thornton MD History of Present Illness 50-year-old female with a past medical history of diabetes mellitus type 2, hypertension, hyperlipidemia, tobacco abuse and hypothyroidism who presented with a complaint of chest pain since 6 AM. She also had nausea and vomiting. She went to the ER. She was found to have ST elevations in the inferior leads and a heart alert was called. She was given aspirin, IV heparin, Brilinta. She went to the Provider Relations Rep and received 1 drug-eluting stent to the RCA. Moderate nonculprit coronary artery disease was seen as well. Patient without any significant complaints at present time. No leukocytosis seen on labs. ANISA globin stable. Creatinine and electrolytes stable. Alkaline phosphatase moderately elevated at 161. Otherwise LFTs unremarkable. Allergies Allergy/AdvReac Type Severity Reaction Status Date / Time No Known Allergies Allergy Verified 02/22/21 15:21 Home Medications Medication Instructions Recorded Confirmed Type hydroxyzine pamoate 25 mg capsule See Rx Instructions .ROUTE 09/04/20 02/22/21 History (Vistaril) .COMPLEX PRN levothyroxine 125 mcg tablet 125 mcg PO QAM 09/04/20 02/22/21 History (Levoxyl) ursodiol 300 mg capsule 300 mg PO BID 09/04/20 02/22/21 History acetaminophen 325 mg tablet 650 mg PO Q4H PRN #30 tab 09/06/20 02/22/21 Rx amlodipine 5 mg tablet (Norvasc) 5 mg PO QAM #30 tab 09/06/20 02/22/21 Rx famotidine 10 mg tablet (Acid 10 mg PO BID #60 tab 09/06/20 02/22/21 Rx Steamtable Worker (famotidine)) conjugated estrogens 0.625 mg/gram 0.625 mg VAGINAL DIRECTED PRN 02/22/21 02/22/21 History vaginal cream (Premarin) fenofibrate nanocrystallized 145 145 mg PO DAILY 02/22/21 02/22/21 History mg tablet glipizide 5 mg tablet 5 mg PO DAILY 02/22/21 02/22/21 History metformin 500 mg tablet 500 mg PO QDD 02/22/21 02/22/21 History ondansetron HCl 4 mg tablet 4 mg PO Q8H PRN 02/22/21 02/22/21 History (Zofran) pantoprazole 40 mg tablet,delayed 40 mg PO DAILY 02/22/21 02/22/21 History release Patient History Medical History Diabetes Diabetes mellitus, type II HLD (hyperlipidemia) HTN (hypertension) Hypothyroidism Post-surgical hypothyroidism Tobacco use Tobacco use disorder Surgical History History of delivery History of hysterectomy History of thyroidectomy Family History (Updated 02/22/21 @ 18:59 by Cb Tobias MD) Mother Diabetes Liver cirrhosis secondary to YOU Pulmonary hypertension Grandfather (Paternal) Coronary heart disease [place] in mid 40's Social History Smoking Status: Current every day smoker Tobacco Type: Cigarettes Cigarettes Per Day: 20; Second Hand Exposure: No; Do You Dip or Chew Tobacco: No; Tobacco Cessation Education Requested by Patient: Yes Hx Alcohol Use: No Hx Substance Use: No Preferred Language: Urdu Communication Ability: Effective Road Monkey Required: Yes Beliefs That Will Affect Care: None Current Living Situation: Alone Current Living Situation Comment: lives with son Other Information That Helps Us Care for You: No Feels Safe at Home: Yes Assistive Devices: None Review of Systems Review of Systems: All systems reviewed & are unremarkable except as noted in HPI & below Physical Exam 2 Physical Exam: Constitutional: Patient appears to be of their stated age. Patient is in no apparent distress. Patient is well-developed. Eyes: Pupils are equal round and reactive to light. Conjunctivae are normal. Anicteric sclera. Ears nose, mouth and throat: No obvious deformity seen. Neck: Trachea is midline. Visual inspection is normal. Respiratory: Clear to auscultation bilaterally. No use of accessory muscles. No significant clubbing noted. Cardiovascular: Regular rate and rhythm. No murmurs. No edema. Gastrointestinal: Normal bowel sounds, soft, nontender and nondistended. No hepatosplenomegaly noted. Musculoskeletal: No cyanosis. Patient is able to move all extremities. Strength is 5 out of 5 in the upper and lower extremities. Skin: No rashes, warm dry and intact. Neurologic: No obvious focal neurological deficits seen. Psychiatric: Alert and oriented x3 with a euthymic affect. Results & Data Results & Data ([facility]) Vital Signs (Past 12 Hours) Vital Signs Temp Pulse Pulse Resp BP BP Pulse Ox 02/22/21 17:49 72 23 134/78 98 02/22/21 17:34 84 19 130/92 96 02/22/21 17:19 76 20 137/88 97 02/22/21 16:41 79 17 120/78 96 02/22/21 16:27 74 17 120/77 93 02/22/21 15:16 89 13 175/130 H 02/22/21 15:10 98.4 F 02/22/21 14:58 97.7 F 77 18 167/97 H 99 Vital signs, labs and imaging reviewed Coding Level of Care Code 49742 Inpt Consult Level 3 Diagnoses STEMI (ST elevation myocardial infarction) I21.3 HTN (hypertension) I10 HLD (hyperlipidemia) E78.5 Inferior [place] I21.19
[2021-02-22] MEDS: FAMOTIDINE 10 MG TABLET PO SCH (21:41)
[2021-02-22] MEDS: ursodioL 300 MG CAP PO SCH (21:41)
[2021-02-22] MEDS: METOPROLOL TARTRATE 25 MG TAB PO SCH (21:41)
[2021-02-22] MEDS: hydrOXYzine HCl 25 MG TAB PO PRN (21:43)
[2021-02-23 03:29] LABS: Hematocrit (blood only) 41.3 % (37-47); Hemoglobin 14.2 g/dL (12.0-16.0); Mean Corpuscular Hemoglobin 29.8 pg (25-34); Mean Corpuscular Hgb Conc 34.4 g/dL (32-36); Mean Corpuscular Volume 86.8 fL (80-100); Mean Platelet Volume 9.9 fL (7.4-10.4); Platelet Count 167 K/uL (130-400); RDW Coefficient of Variation 13.8 % (11.5-14.5); RDW Standard Deviation 43.6 fL (36.4-46.3); Red Blood Count 4.76 M/uL (4.2-5.4); White Blood Count 8.77 K/uL (4.8-10.8)
[2021-02-23 04:38] LABS: Calcium 9.1 mg/dl (8.5-10.1); Est GFR (African American) 107.7 ml/min; Est GFR (Non-African American) 92.9 ml/min
[2021-02-23 04:47] LABS: Basophils # (auto) 0.04 K/uL (0-0.2); Basophils % (auto) 0.5 %; Eosinophils # (auto) 0.07 K/uL (0-0.5); Eosinophils % (auto) 0.8 %; Immature Granulocytes # (auto) 0.06 K/uL (0.00-0.02); Immature Granulocytes % (auto) 0.7 %; Lymphocytes # (auto) 3.48 K/uL (1.2-3.4); Lymphocytes % (auto) 39.7 %; Monocytes # (auto) 0.41 K/uL (0.11-0.59); Monocytes % (auto) 4.7 %; Neutrophils # (auto) 4.71 K/uL (1.4-6.5); Neutrophils % (auto) 53.6 %
[2021-02-23 04:58] LABS: Potassium 3.6 mmol/L (3.5-5.1)
[2021-02-23] MEDS: LEVOTHYROXINE SODIUM 125 MCG TABLET PO SCH (05:13)
[2021-02-23] MEDS: ATORVASTATIN 40 MG TAB PO SCH (07:55)
[2021-02-23] MEDS: ASPIRIN 81 MG ECTAB PO SCH (07:55)
[2021-02-23 07:56] LABS: Estimated Average Glucose 189 mg/dl; Hemoglobin A1C 8.2 % (4.5-5.6)
[2021-02-23] MEDS: FAMOTIDINE 10 MG TABLET PO SCH ×2 (07:56→08:07)
[2021-02-23] MEDS: METOPROLOL TARTRATE 25 MG TAB PO SCH ×2 (07:56→20:17)
[2021-02-23] MEDS: FENOFIBRATE NANOCRYSTALLIZED 145 MG TABLET PO SCH (07:56)
[2021-02-23] MEDS: lisinopril 5 MG TAB PO SCH (07:56)
[2021-02-23] MEDS: PANTOprazole 40 MG TAB PO SCH (07:57)
[2021-02-23] MEDS: ursodioL 300 MG CAP PO SCH ×2 (07:57→20:17)
[2021-02-23] MEDS: TICAGRELOR 90 MG TAB PO SCH ×2 (07:57→20:18)
--- NOTE | 2021-02-23 08:29 | Critical Care Progress Note ---
Date of Service February 23, 2021 Assessment & Plan (1) STEMI (ST elevation myocardial infarction): (2) HTN (hypertension): (3) HLD (hyperlipidemia): (4) Inferior [place]: Plan: --STEMI S/p drug-eluting stent to the RCA Continue with dual antiplatelet therapy 2D echo 02/23/2021: EF 60%, grade 1 diastolic dysfunction --Dyslipidemia with hypertriglyceridemia Patient does have history of pancreatitis as well likely from underlying hypertriglyceridemia Continue with atorvastatin as well as fenofibrate Monitor CPK --Active smoker Importance of quitting explained the patient --Diabetes type 2 Continue with hyperglycemia protocol --Prophylaxis VTE: IPC GI: Protonix Lines: Peripheral Diet: Cardiac Plan: DC Pepcid 20 mg of potassium given potassium 3.6 Patient is hemodynamically stable to be downgraded to medical floor Please note the above document was generated using voice recognition software. It may contain grammatical, syntax or spelling errors.Any formal questions or concerns about the content, text or information contained within the body of this dictation should be directly addressed to the provider for clarification. Admission and Anticipated Discharge Date Admission Date: February 22, 2021 Subjective Patient seen and examined at bedside. No acute distress, no adverse events overnight. Denies any chest pain, no headache tolerating diet. Urinating well. Denies any abdominal pain. No diarrhea. Review of Systems Review of Systems: All systems reviewed & are unremarkable except as noted in HPI & below Physical Exam Physical Exam: Constitutional: No acute distress HEENT: EOMI, PERRLA Respiratory system: Good air entry bilaterally, no wheeze, rhonchi, no crackles CVS: S1-S2 positive, no murmurs or gallops Abdomen: Soft, nontender, nondistended, positive bowel sounds x4 Extremities: +2 pulses bilaterally radialis/ dorsalis pedis, no cyanosis, no edema Neuro: Awake alert oriented x3 Psych: Normal mood and affect G/U: No Hector Skin: no rashes, warm and dry Lymphatic: no cervical or axillary lymphadenopathy Results & Data Results & Data ([facility]) Vital Signs (Past 12 Hours) Vital Signs Pulse Resp BP Pulse Ox 02/23/21 05:34 58 L 17 124/71 98 02/23/21 05:19 64 22 115/70 97 02/23/21 05:04 64 16 140/95 97 02/23/21 04:49 58 L 18 140/90 97 02/23/21 04:34 60 18 141/87 H 97 02/23/21 04:19 61 19 135/98 100 02/23/21 04:04 61 19 132/79 96 02/23/21 03:40 61 22 97 02/23/21 03:30 62 20 97 02/23/21 03:21 61 19 97 02/23/21 03:04 57 L 17 137/81 97 02/23/21 02:49 58 L 19 126/83 96 02/23/21 02:34 58 L 19 127/87 96 02/23/21 02:19 56 L 19 129/79 96 02/23/21 02:04 57 L 19 138/85 96 02/23/21 01:49 57 L 20 134/92 96 02/23/21 01:34 64 18 133/84 100 02/23/21 01:19 58 L 18 130/82 97 02/23/21 01:04 61 21 115/72 99 02/23/21 00:49 67 24 132/91 98 02/23/21 00:35 69 20 128/88 98 02/23/21 00:19 60 20 132/87 97 02/23/21 00:04 60 16 123/72 98 02/22/21 23:49 59 L 18 123/73 99 02/22/21 23:34 62 19 108/78 97 02/22/21 23:19 63 19 130/78 97 02/22/21 23:04 64 21 111/68 96 02/22/21 22:49 61 18 105/71 97 02/22/21 22:34 68 20 120/86 97 02/22/21 22:19 74 17 156/80 H 02/22/21 22:04 72 22 146/77 H 02/22/21 21:49 63 15 136/86 02/22/21 21:34 68 19 140/96 02/22/21 21:17 77 02/22/21 20:49 72 22 117/88 96 02/22/21 20:34 73 21 106/75 97 02/23/21 03:07 02/23/21 03:07 Coding Level of Care Code 38798 Subseq Hosp Care Lvl 3 Diagnoses STEMI (ST elevation myocardial infarction) I21.3 HTN (hypertension) I10 HLD (hyperlipidemia) E78.5 Inferior [place] I21.19
[2021-02-23] MEDS: POTASSIUM CHLORIDE CRTAB 20 MEQ TABCR PO SCH (09:09)
--- NOTE | 2021-02-23 09:30 | Cardiology Progress Note ---
Date of Service February 23, 2021 Assessment & Plan (1) STEMI (ST elevation myocardial infarction): Plan: She is feeling well today however is less than 1 day post PCI. Her troponin is still climbing, I will repeat that this morning. Her LV function is good. I th ink it is probably safer for her to stay overnight. I discussed risk factor modification she understands she will have to change her lifestyle and her medications, I will review that in more detail when she goes home tomorrow. Admission and Anticipated Discharge Date Admission Date: February 22, 2021 Subjective She feels well today, she tells me she cannot believe how much better she feels. No chest discomfort, no shortness of breath, no incisional discomfort. Physical Exam Physical Exam: Constitutional: Alert, cooperative and in no distress. HEENT: Unremarkable Neck: No jugular venous distention, carotid pulses are normal and equal bilaterally without bruits. Pulmonary: Clear to auscultation bilaterally. Cardiac: Regular rhythm with no murmur, gallop or rub. Abdomen: Soft, nontender with normal bowel sounds. Extremities: No edema. Distal pulses intact. Neurologic: No focal findings. Skin: No rash, ecchymoses or petechiae. Results & Data ([facility]) Vital Signs (Past 12 Hours) Vital Signs Temp Pulse Resp BP Pulse Ox 02/23/21 08:00 36.5 C 70 24 136/71 98 02/23/21 05:34 58 L 17 124/71 98 02/23/21 05:19 64 22 115/70 97 02/23/21 05:04 64 16 140/95 97 02/23/21 04:49 58 L 18 140/90 97 02/23/21 04:34 60 18 141/87 H 97 02/23/21 04:19 61 19 135/98 100 02/23/21 04:04 61 19 132/79 96 02/23/21 03:40 61 22 97 02/23/21 03:30 62 20 97 02/23/21 03:21 61 19 97 02/23/21 03:04 57 L 17 137/81 97 02/23/21 02:49 58 L 19 126/83 96 02/23/21 02:34 58 L 19 127/87 96 02/23/21 02:19 56 L 19 129/79 96 02/23/21 02:04 57 L 19 138/85 96 02/23/21 01:49 57 L 20 134/92 96 02/23/21 01:34 64 18 133/84 100 02/23/21 01:19 58 L 18 130/82 97 02/23/21 01:04 61 21 115/72 99 02/23/21 00:49 67 24 132/91 98 02/23/21 00:35 69 20 128/88 98 02/23/21 00:19 60 20 132/87 97 02/23/21 00:04 60 16 123/72 98 02/22/21 23:49 59 L 18 123/73 99 02/22/21 23:34 62 19 108/78 97 02/22/21 23:19 63 19 130/78 97 02/22/21 23:04 64 21 111/68 96 02/22/21 22:49 61 18 105/71 97 02/22/21 22:34 68 20 120/86 97 02/22/21 22:19 74 17 156/80 H 02/22/21 22:04 72 22 146/77 H 02/22/21 21:49 63 15 136/86 02/22/21 21:34 68 19 140/96 Laboratory Results Cardiac Enzymes 02/22/21 02/22/21 02/23/21 Range/Units 15:12 21:14 03:07 AST 51 H (15-37) U/L Troponin I 0.045 7.600 H* 14.200 H* (0-0.045) ng/ml Coagulation 02/22/21 Range/Units 15:12 APTT 27.2 (21.0-31.0) Seconds Lipids 02/23/21 Range/Units 03:07 Triglycerides 1119 H (0-150) mg/dl Cholesterol 216 H (0-200) mg/dl HDL Cholesterol 21 mg/dl Cholesterol/HDL Ratio 10 CBC 02/22/21 02/23/21 Range/Units 15:12 03:07 WBC 10.15 8.77 (4.8-10.8) K/uL RBC 5.20 4.76 (4.2-5.4) M/uL Hgb 15.5 14.2 (12.0-16.0) g/dL Hct 44.1 41.3 (37-47) % Plt Count 219 167 (130-400) K/uL Neut # (Auto) 6.37 4.71 (1.4-6.5) K/uL Lymph # (Auto) 3.00 3.48 H (1.2-3.4) K/uL [place] # (Auto) 0.58 0.41 (0.11-0.59) K/uL Eos # (Auto) 0.07 0.07 (0-0.5) K/uL Baso # (Auto) 0.06 0.04 (0-0.2) K/uL Comprehensive Metabolic Panel 02/22/21 02/23/21 Range/Units 15:12 03:07 Sodium 136 (136-145) mmol/L Potassium 3.6 3.6 (3.5-5.1) mmol/L Chloride 104 106 (98-107) mmol/L Carbon Dioxide 23 24 (21-32) mmol/L BUN 13 12 (7-18) mg/dl Creatinine 0.75 0.75 (0.6-1.2) mg/dl Glucose 164 H 166 H (70-99) mg/dl Calcium 10.1 9.1 (8.5-10.1) mg/dl AST 51 H (15-37) U/L ALT 85 H (12-78) U/L Alkaline Phosphatase 159 H (45-117) U/L Total Protein 8.6 H (6.4-8.2) gm/dl Albumin 4.6 (3.4-5.0) gm/dl Intake and Output 02/22/21 02/23/21 02/23/21 22:59 06:59 14:59 Intake Total 1959 Balance 1959 Intake: IV 1000 / 1000 Sodium Chloride 0.9% 1000ML 1, 1000 / 1000 000 ml @ 100 mls/hr IV .Q10H MARLA Rx#:[id number] Oral 480 / 960 480 / 960 Other: # Unmeasured Voids 0 1 Weight 78.5 kg Weight Measurement Method Built in [facility] Diagnostic Findings Telemetry: Sinus rhythm, no significant arrhythmia PG Care Time/CCT Total # of Minutes Spent Total Time Spent with Patient: Total time spent is greater than 50% in coordination of care (as documented) at patient's floor/unit and/or counseling patient: Coding Level of Care Code 62736 Subseq Hosp Care Lvl 3 Diagnoses STEMI (ST elevation myocardial infarction) I21.3
--- NOTE | 2021-02-23 10:24 | XCELERA ---
[id number] \\[id number]
--- NOTE | 2021-02-23 14:41 | Hospitalist Progress Note ---
Date of Service February 23, 2021 Assessment & Plan (1) STEMI (ST elevation myocardial infarction): Plan: Patient is 50-year-old female with PMH DM II, HTN, HLD, tobacco use, postsurgical hypothyroidism presented to ER with complaint of chest pain/epigastric pain since 6 AM. STEMI S/P PCI: 100% distal RCA occlusion just before the bifurcation with RAIL SWITCHMAN S/P drug-eluting stent 50 to 60% mid RCA, 40% early distal RCA, 30% proximal LAD, 50% small distal circumflex -ECHO: Left ventricle systolic function is normal. Grade 1 diastolic dysfunction. There are no regional wall motion abnormalities. Grade grade 2 systolic function is normal. -Continue aspirin, Lipitor, TriCor, Brilinta, Metoprolol Appreciate cardiology input Needs follow-up with cardiology upon discharge Advised to quit smoking Tobacco use disorder Counseled to quit smoking (2) Diabetes mellitus, type II: Plan: A1c: 7.8 on 12/07/2020 Hold home oral agents Insulin per protocol (3) HTN (hypertension): Plan: Hold home amlodipine Lisinopril, metoprolol started (4) HLD (hyperlipidemia): Plan: Continue fenofibrate Atorvastatin added (5) Post-surgical hypothyroidism: Plan: TSH: 3.2 on 12/07/2020 Continue levothyroxine (6) Tobacco use: Plan: Smoking cessation encouraged Patient denies nicotine patch DVT Px SCDs Code Status Full Code Admission and Anticipated Discharge Date Admission Date: February 22, 2021 Subjective Patient is seen and examined at bedside States feeling much better today Chest pain resolved Denies dyspnea, dizziness, nausea, abdominal pain Offers no other complaints Review of Systems Review of Systems: All systems reviewed & are unremarkable except as noted in Subjective Physical Exam Physical Exam: Physical Exam: Vitals signs as noted above General Appearance:Moderately built and nourished, no apparent distress Head: normocephalic, Atraumatic Eyes: normal inspection, EOMI Neck: supple, Trachea midline Respiratory/Chest: Normal breath sounds, CTA, No accessory muscle use Cardiovascular: S1, S2, No murmur Abdomen/GI:Soft, Non tender, Bowel sounds present Extremities/Musculoskeletal:normal inspection, no edema Neurologic/Psych:AAOX3, grossly no focal neurological deficits Skin: normal color, warm Results & Data Results & Data ([facility]) Vital Signs (Past 12 Hours) Vital Signs Temp Pulse Resp BP Pulse Ox 02/23/21 12:00 36.5 C 02/23/21 11:50 69 21 114/69 98 02/23/21 08:00 36.5 C 70 24 136/71 98 02/23/21 05:34 58 L 17 124/71 98 02/23/21 05:19 64 22 115/70 97 02/23/21 05:04 64 16 140/95 97 02/23/21 04:49 58 L 18 140/90 97 02/23/21 04:34 60 18 141/87 H 97 02/23/21 04:19 61 19 135/98 100 02/23/21 04:04 61 19 132/79 96 02/23/21 03:40 61 22 97 02/23/21 03:30 62 20 97 02/23/21 03:21 61 19 97 02/23/21 03:04 57 L 17 137/81 97 02/23/21 02:49 58 L 19 126/83 96 Laboratory Results Short CBC 02/22/21 02/23/21 Range/Units 15:12 03:07 WBC 10.15 8.77 (4.8-10.8) K/uL Hgb 15.5 14.2 (12.0-16.0) g/dL Hct 44.1 41.3 (37-47) % Plt Count 219 167 (130-400) K/uL BMP 02/22/21 02/23/21 15:12 03:07 Sodium 136 137 Potassium 3.6 3.6 Chloride 104 106 Carbon Dioxide 23 24 BUN 13 12 Creatinine 0.75 0.75 Glucose 164 H 166 H Calcium 10.1 9.1 Cardiac Enzymes 02/22/21 02/22/21 02/23/21 Range/Units 15:12 21:14 03:07 Troponin I 0.045 7.600 H* 14.200 H* (0-0.045) ng/ml 02/23/21 Range/Units 10:47 Troponin I 9.150 H* (0-0.045) ng/ml Liver Function 02/22/21 Range/Units 15:12 Total Bilirubin 0.3 (0.2-1) mg/dl AST 51 H (15-37) U/L ALT 85 H (12-78) U/L Alkaline Phosphatase 159 H (45-117) U/L Albumin 4.6 (3.4-5.0) gm/dl
[2021-02-23] MEDS: hydrOXYzine HCl 25 MG TAB PO PRN (20:19)
[2021-02-24] MEDS: LEVOTHYROXINE SODIUM 125 MCG TABLET PO SCH (06:47)
[2021-02-24 07:05] LABS: BUN Creatinine Ratio 21.2 (10-20); Calcium 9.4 mg/dl (8.5-10.1); Creatinine Clr Calc Pharmacy 94.8 ml/min; Est GFR (African American) 113.2 ml/min; Est GFR (Non-African American) 97.7 ml/min; Magnesium 1.9 mg/dl (1.8-2.4)
[2021-02-24] MEDS: TICAGRELOR 90 MG TAB PO SCH (08:10)
[2021-02-24] MEDS: FENOFIBRATE NANOCRYSTALLIZED 145 MG TABLET PO SCH (08:10)
[2021-02-24] MEDS: POTASSIUM CHLORIDE CRTAB 20 MEQ TABCR PO SCH (08:10)
[2021-02-24] MEDS: lisinopril 5 MG TAB PO SCH (08:10)
[2021-02-24] MEDS: ATORVASTATIN 40 MG TAB PO SCH (08:11)
[2021-02-24] MEDS: ASPIRIN 81 MG ECTAB PO SCH (08:11)
[2021-02-24] MEDS: ursodioL 300 MG CAP PO SCH (08:12)
[2021-02-24] MEDS: METOPROLOL TARTRATE 25 MG TAB PO SCH (08:12)
[2021-02-24] MEDS: PANTOprazole 40 MG TAB PO SCH (08:12)
--- NOTE | 2021-02-24 10:27 | Cardiology Progress Note ---
Date of Service February 24, 2021 Assessment & Plan (1) STEMI (ST elevation myocardial infarction): (2) Tobacco use: (3) Dyslipidemia: Plan: 1. Post myocardial infarction and stent placement: She is feeling well at this time, her troponin is declining and her postop electrocardiogram looks good. She is stable for discharge. I would recommend not working for about a week, depending on how she feels, and we should see her in the office in 1 to 2 weeks. We can arrange cardiac rehab as well. 2. Tobacco abuse: She does need to stop smoking to prevent recurrence, I told her that and hopefully she can follow through. 3. Dyslipidemia: She has a history of hypertriglyceridemia on fenofibrate, however she is now on atorvastatin 80 mg daily as well and should be on both although perhaps in the future fenofibrate could be discontinued depending on how well the atorvastatin works alone. This can be evaluated in follow-up. Admission and Anticipated Discharge Date Admission Date: February 22, 2021 Subjective She is feeling well today, no chest discomfort or shortness of breath. No right wrist discomfort. Physical Exam Physical Exam: Constitutional: Alert, cooperative and in no distress. HEENT: Unremarkable Neck: No jugular venous distention, carotid pulses are normal and equal bilaterally without bruits. Pulmonary: Clear to auscultation bilaterally. Cardiac: Regular rhythm with no murmur, gallop or rub. Abdomen: Soft, nontender with normal bowel sounds. Extremities: No edema. Distal pulses intact. Neurologic: No focal findings. Skin: No rash, ecchymoses or petechiae. The right wrist catheterization site looks clean and dry without swelling or tenderness. Results & Data ([facility]) Vital Signs (Past 12 Hours) Vital Signs Temp Pulse Pulse Resp BP BP Pulse Ox 02/24/21 08:00 59 L 02/24/21 07:10 36.8 C 59 L 18 114/74 98 02/24/21 04:00 36.5 C 56 L 18 120/75 97 02/23/21 23:24 36.8 C 64 18 112/73 97 Laboratory Results Cardiac Enzymes 02/23/21 Range/Units 10:47 Troponin I 9.150 H* (0-0.045) ng/ml Comprehensive Metabolic Panel 02/24/21 Range/Units 06:06 Sodium 139 (136-145) mmol/L Potassium 4.0 (3.5-5.1) mmol/L Chloride 106 (98-107) mmol/L Carbon Dioxide 28 (21-32) mmol/L BUN 15 (7-18) mg/dl Creatinine 0.72 (0.6-1.2) mg/dl Glucose 169 H (70-99) mg/dl Calcium 9.4 (8.5-10.1) mg/dl Intake and Output 02/23/21 02/24/21 02/24/21 22:59 06:59 14:59 Other: Weight 78.5 kg Weight Measurement Method Standing Scale Diagnostic Findings ECG post intervention shows sinus rhythm with no acute findings. Telemetry: Sinus rhythm with no significant arrhythmia. PG Care Time/CCT Total # of Minutes Spent Total Time Spent with Patient: Total time spent is greater than 50% in coordination of care (as documented) at patient's floor/unit and/or counseling patient: Coding Level of Care Code 14335 Subseq Hosp Care Lvl 2 Diagnoses STEMI (ST elevation myocardial infarction) I21.3 Tobacco use Z72.0 Dyslipidemia E78.5
--- NOTE | 2021-02-24 12:53 | Hospitalist Progress Note ---
Date of Service February 24, 2021 Assessment & Plan (1) STEMI (ST elevation myocardial infarction): Plan: Patient is 50-year-old female with PMH DM II, HTN, HLD, tobacco use, postsurgical hypothyroidism presented to ER with complaint of chest pain/epigastric pain since 6 AM. STEMI S/P PCI: 100% distal RCA occlusion just before the bifurcation with ESTIMATOR S/P drug-eluting stent 50 to 60% mid RCA, 40% early distal RCA, 30% proximal LAD, 50% small distal circumflex -ECHO: Left ventricle systolic function is normal. Grade 1 diastolic dysfunction. There are no regional wall motion abnormalities. Grade grade 2 systolic function is normal. -Continue aspirin, Lipitor, TriCor, Brilinta, Metoprolol Appreciate cardiology input Advised to quit smoking Troponin trended down Continue current medications Advised to follow-up with cardiology upon discharge Tobacco use disorder Counseled to quit smoking (2) Diabetes mellitus, type II: Plan: A1c: 7.8 on 12/07/2020 Hold home oral agents Insulin per protocol (3) HTN (hypertension): Plan: Amlodipine discontinued Continue Lisinopril, metoprolol (4) HLD (hyperlipidemia): Plan: Continue fenofibrate Atorvastatin added (5) Post-surgical hypothyroidism: Plan: TSH: 3.2 on 12/07/2020 Continue levothyroxine (6) Tobacco use: Plan: Smoking cessation encouraged Patient denies nicotine patch DVT Px SCDs Code Status Full Code Admission and Anticipated Discharge Date Admission Date: February 22, 2021 Subjective Patient is seen and examined at bedside No new complaints Eager to get discharged No recurrence of chest pain Denies dyspnea, dizziness, nausea, abdominal pain Troponin trending down Review of Systems Review of Systems: All systems reviewed & are unremarkable except as noted in Subjective Physical Exam Physical Exam: Physical Exam: Vitals signs as noted above General Appearance:Moderately built and nourished, no apparent distress Head: normocephalic, Atraumatic Eyes: normal inspection, EOMI Neck: supple, Trachea midline Respiratory/Chest: Normal breath sounds, CTA, No accessory muscle use Cardiovascular: S1, S2, No murmur Abdomen/GI:Soft, Non tender, Bowel sounds present Extremities/Musculoskeletal:normal inspection, no edema Neurologic/Psych:AAOX3, grossly no focal neurological deficits Skin: normal color, warm Results & Data Results & Data ([facility]) Vital Signs (Past 12 Hours) Vital Signs Temp Pulse Pulse Pulse Resp BP BP 02/24/21 11:01 36.8 C 63 18 111/73 02/24/21 10:33 36.8 C 59 L 18 120/75 114/74 02/24/21 08:00 59 L 02/24/21 07:10 36.8 C 59 L 18 114/74 02/24/21 04:00 36.5 C 56 L 18 120/75 Pulse Ox 02/24/21 11:01 98 02/24/21 10:33 98 02/24/21 08:00 02/24/21 07:10 98 02/24/21 04:00 97 Laboratory Results BMP 02/24/21 06:06 Sodium 139 Potassium 4.0 Chloride 106 Carbon Dioxide 28 BUN 15 Creatinine 0.72 Glucose 169 H Calcium 9.4
--- NOTE | 2021-02-24 17:14 | Discharge Summary ---
Date of Service February 24, 2021 Admission HPI Per Admitting Provider Patient is 50-year-old female with PMH DM II, HTN, HLD, tobacco use, postsurgical hypothyroidism presented to ER with complaint of chest pain/epigastric pain since 6 AM. States had nausea, and belching. Later felt l rosana arms were heavy, felt anxious and "like something wasn't right" and came to ER. Reports history pancreatitis and has intermittent diarrhea. Denies fever/chills, diaphoresis, vomiting, hematochezia, melena, PATEL, dizziness, syncope, vision changes, neck pain, orthopnea, palpitations, cough, sore throat, choking, otalgia, rhinorrhea, abdominal pain, paresthesias, weakness, extremity weakness, extremity edema, rashes, urinary symptoms. In ER was found to have ST elevation in inferior leads. Heart alert was called. Patient was given aspirin, heparin IV, ticagrelor 180mg. 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 Admission Exam Per Admitting Provider Physical Exam Physical Exam: General: no distress, overweight Head: normocephalic, atraumatic Eyes: conjunctiva non-injected, anicteric ENT: normal inspection external ears, nose, mucous membranes moist Neck: supple, trachea midline Lungs: clear, no respiratory distress, no wheezing/rhonchi/rales CV: RRR, no murmur, no pretibial edema Abd: normal BS, soft, non-tender Ext: no cyanosis, no calf tenderness; RUE: +wrist band in place without bleedi ng, able to move fingers Neuro: A&O x 3, no focal deficits noted, normal affect Skin: warm, dry Principal Diagnosis ST elevation myocardial infarction The record use disorder Hyperlipidemia Discharge Data Allergies Allergy/AdvReac Type Severity Reaction Status Date / Time No Known Allergies Allergy Verified 02/22/21 15:21 Consultations 02/22/21 16:42 Consult Outsole Splicer Routine 02/22/21 16:48 Consult Cardiac Rehabilitation Routine 02/22/21 17:55 Consult Cardiology Routine Procedures Performed Operation Date: 02/22/21 15:10 Actual Procedures s Cath, Left with Cors and Vent - Tru Veras MD s Cineradiography w/Routine Exam - Tru Veras MD p Aspiration/PCI w/HARINI for Stemi - Tru Veras MD Ordered Studies 02/22/21 15:11 CL Cath Imgs for PACS use only Stat Hospital Course (1) STEMI (ST elevation myocardial infarction): Patient is 50-year-old female with PMH DM II, HTN, HLD, tobacco use, postsurgical hypothyroidism presented to ER with complaint of chest pain/epigastric pain since 6 AM. 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 Grade 1 diastolic dysfunction. There are no regional wall motion abnormalities. Grade grade 2 systolic function is normal. -Continue aspirin, Lipitor, TriCor, Brilinta, Metoprolol Appreciate cardiology input Advised to quit smoking Troponin trended down Continue current medications Advised to follow-up with cardiology upon discharge Tobacco use disorder Counseled to quit smoking (2) Diabetes mellitus, type II: A1c: 7.8 on 12/07/2020 Hold home oral agents Insulin per protocol (3) HTN (hypertension): Amlodipine discontinued Continue Lisinopril, metoprolol (4) HLD (hyperlipidemia): Continue fenofibrate Atorvastatin added (5) Post-surgical hypothyroidism: TSH: 3.2 on 12/07/2020 Continue levothyroxine (6) Tobacco use: Smoking cessation encouraged Patient denies nicotine patch DVT Px SCDs Code Status Full Code Total Time Total Time Spent Total Time Spent (In Minutes): 42 minutes Discharge Plan Discharge Items Patient Disposition: Home - Self-Care Reason For Visit: STEMI Discharge Diagnosis: ST elevation myocardial infarction The record use disorder Hyperlipidemia Activity: Per Instructions section Exercise/Sports: Wait until after follow-up appointment Non-emergency contact: Primary Care Provider and Community Support Worker Call non-emergency contact if: you have any medication questions, your symptoms worsen, your pain is not controlled, your pain is concerning for you and you have a fever Follow-up/Referrals: Tru Veras MD [Physician] - (Follow-up in 1 to 2 weeks) Edwin Espinoza MD [Primary Care Provider] - Diet: Heart Healthy Add Attending Provider Instructions: Follow-up with your primary care physician Dr. Espinoza in 1 week Follow-up with your planisher in 1-2 weeks Consider smoking tobacco as advised. Seek immediate medical attention if your symptoms reoccur or worsen Please take all medications as instructed on discharge list below. Please call if you have any questions or problems. You can reach a [facility] hospitalist on duty at [facility] 24 hours a day by calling [phone] Home Care: * Take your medications exactly as directed. Don't skip doses. * Remember that recovery after a heart attack takes time. Plan to rest for at lease 4-8 weeks while you recover. Then return to normal activity when your doctor says it's okay. * Ask your doctor about joining a heart rehabilitation program. * Tell your doctor if you are feeling depressed. Feelings of sadness are common after a heart attack, but it is important that you speak to someone if you are feeling overwhelmed by these feelings. * If you are having chest pain, call 911 for an ambulance. Do NOT drive yourself to the hospital. * Ask your family members to learn CPR. * Learn to take your own blood pressure and pulse. Keep a record of your results. Ask your doctor when you should seek emergency medical attention. He or she will tell you which blood pressure reading is dangerous. Lifestyle Changes: * Maintain a healthy weight. Get help to lose any extra pounds. * Cut back on salt. * Limit canned, dried, packaged, and fast foods. * Don't add salt to your food. * Season foods with herbs instead of salt when you cook. * Break the smoking habit. Enroll in a stop-smoking program to improve your chances of success. * Limit fatty foods. * Ask your doctor about having your lipid levels checked regularly. * Build up your activity according to your doctor's recommendation. * Ask your doctor when it's okay to resume sexual activity. * Tell your doctor about any erectile dysfunction (ED) medication you are taking. Some ED medications are not safe if you take certain heart medications. * Try to manage stress. Follow Up: It is important for you to keep your follow up appointments with your medical provider. Addtl Sr. Payroll Manager Provider Instructions: ACTIVITY RECOMMENDATIONS: Excess manipulation of the wrist should be avoided for the next 24-48 hours. * No lifting over 2 pounds (approximately a 1/2 gallon of milk) with the utilized arm for 24 hours. * No strenuous activity such as bowling or tennis for 3 days. * Keep the site of the procedure covered with a bandage for 24 hours. *You may shower the day after the procedure. Do not take a tub bath or submerge the puncture site in water for the next 3 days. *Do not operate any motorized equipment for 3 days. SPECIAL CARE INSTRUCTIONS: The site may be slightly bruised and sore following your procedure. Should any of the following occur, contact the Dr. who performed your procedure. 1. Redness/inflammation, swelling, chills, or fever, or colored drainage at procedure site within 3-7 days after your procedure. 2. Coldness, discoloration, ongoing numbness, severe pain, or swelling. Expect mild tingling of hand and tenderness at the puncture site for up to three days. If this persists beyond three days, or other symptoms develop, notify the Dr. who performed your procedure. BLEEDING: If the procedure site on your wrist begins to bleed, do not panic 1. Place 1 or 2 fingers firmly just slightly above the insertion site to stop the bleeding. You may be able to feel your pulse as you hold pressure. 2. Lift your finger after 5 minutes to see if the bleeding has stopped. 3. Once the bleeding has stopped, gently wipe the wrist area clean with a bandage. * If the bleeding from your wrist does not stop after 10 minutes, or if there is a large amount of bleeding or spurting, call 911 (do not drive yourself to the hospital). SKIN IRRITATION: * You may experience some redness and/or swelling in the area where radiation was administered. If any skin irritation occurs, please contact your family physician. FOLLOW UP VISIT: Keep any scheduled doctor appointments. Pending Studies at Discharge: No Stand-Alone Forms: My [employer]urrl, Work/School Release, Smoking Cessation Medications and DC Order Prescriptions: New Brilinta 90 mg Tablet 90 mg PO BID Qty: 60 RF: 1 lisinopril [Zestril] 5 mg Tablet 5 mg PO QAM Qty: 30 RF: 1 metoprolol tartrate 25 mg Tablet 12.5 mg PO BID Qty: 30 RF: 1 aspirin 81 mg Tablet,Delayed Release (Dr/Ec) 81 mg PO QAM Qty: 30 RF: 1 atorvastatin 80 mg tablet 80 mg PO DAILY Qty: 30 RF: 1 Continued levothyroxine [Levoxyl] 125 mcg tablet 125 mcg PO QAM RF: 0 ursodiol 300 mg capsule 300 mg PO BID RF: 0 hydroxyzine pamoate [Vistaril] 25 mg capsule See Rx Instructions .ROUTE .COMPLEX PRN (Reason: Anxiety) RF: 0 acetaminophen 325 mg Tablet 650 mg PO Q4H PRN (Reason: fever or pain) Qty: 30 RF: 0 famotidine [Acid Electric Switch Tester (famotidine)] 10 mg Tablet 10 mg PO BID Qty: 60 RF: 0 ondansetron HCl [Zofran] 4 mg Tablet 4 mg PO Q8H PRN (Reason: Nausea) RF: 0 pantoprazole 40 mg tablet,delayed release (DR/EC) 40 mg PO DAILY RF: 0 Premarin 0.625 mg/gram Cream 0.625 mg VAGINAL DIRECTED PRN (Reason: NEEDED) RF: 0 glipizide 5 mg tablet 5 mg PO DAILY RF: 0 fenofibrate nanocrystallized 145 mg tablet 145 mg PO DAILY RF: 0 metformin 500 mg tablet 500 mg PO QDD RF: 0 Discontinued amlodipine [Norvasc] 5 mg Tablet 5 mg PO QAM Qty: 30 RF: 0 Discharge Orders: Discharge Order (Routine); Ordered 02/24/21 Ordered By: Bang Ward/Other Patient Handouts: A1C, Managing Type 2 Diabetes, Eating Heart- Healthy Foods Admission Data Admit Date/Time: 02/22/21 16:42 Attending Provider: Bang Cruz Admit Provider: Tru Veras Primary Care Provider: Edwin Espinoza Other Providers: Cb Tobias ; Tru Veras Other Interventions: Discharge Summary Assessment (RN) Last Done: 02/24/21 10:33
--- NOTE | 2021-02-24 19:11 | Electrocardiogram Report ---
Test Reason : Blood Pressure : / mmHG Vent. Rate : 066 BPM Atrial Rate : 066 BPM P-R Int : 188 ms QRS Dur : 094 ms QT Int : 400 ms P-R-T Axes : 059 054 077 degrees QTc Int : 419 ms Normal sinus rhythm Possible Left atrial enlargement Cannot rule out Inferior infarct , age undetermined Abnormal ECG When compared with ECG of 22-FEB-2021 15:08, ST no longer elevated in Inferior leads ST no longer depressed in Lateral leads Nonspecific T wave abnormality has replaced inverted T waves in Lateral leads Confirmed by Dannie Ferrari ([id number]) on 02/24/2021 7:10:34 PM Referred By: REFERRED SELF Confirmed By:Dannie Ferrari
--- NOTE | 2021-02-24 20:14 | Electrocardiogram Report ---
Test Reason : Blood Pressure : / mmHG Vent. Rate : 063 BPM Atrial Rate : 063 BPM P-R Int : 128 ms QRS Dur : 086 ms QT Int : 460 ms P-R-T Axes : 063 005 -09 degrees QTc Int : 470 ms Poor data quality, interpretation may be adversely affected Normal sinus rhythm Inferior infarct (cited on or before 22-FEB-2021) Anterior infarct , age undetermined Abnormal ECG When compared with ECG of 22-FEB-2021 17:18, (unconfirmed) Anterior infarct is now Present T wave inversion now evident in Inferior leads Confirmed by Dannie Ferrari ([id number]) on 02/24/2021 8:13:29 PM Referred By: REFERRED SELF Confirmed By:Dannie Ferrari
--- NOTE | 2021-02-24 20:35 | Electrocardiogram Report ---
Test Reason : Blood Pressure : / mmHG Vent. Rate : 059 BPM Atrial Rate : 059 BPM P-R Int : 178 ms QRS Dur : 088 ms QT Int : 484 ms P-R-T Axes : 004 035 103 degrees QTc Int : 479 ms Sinus bradycardia Anterior infarct (cited on or before 23-FEB-2021) T wave abnormality, consider lateral ischemia Abnormal ECG When compared with ECG of 23-FEB-2021 09:59, (unconfirmed) Criteria for Inferior infarct are no longer Present Serial changes of evolving Anterior infarct Present Confirmed by Dannie Ferrari ([id number]) on 02/24/2021 8:35:16 PM Referred By: REFERRED SELF Confirmed By:Dannie Ferrari
== END 2021-02-24 15:25 | disposition home or self-care (01) | DRG 247 ==
LOC: ED 14:50 → CC 15:42 → 1E 15:42 → SUATTDRO 16:42 → 2S 02-23 21:01

== ENCOUNTER 2022-12-19 19:28 | Inpatient (IN) ==
[2022-12-19 20:32] LABS: Hematocrit (blood only) 40.5 % (37.0-47.0); Hemoglobin 16.4 g/dl (12.0-16.0); Mean Corpuscular Hemoglobin 34.5 pg (25.0-34.0); Mean Corpuscular Hgb Conc 40.5 g/dL (32.0-36.0); Mean Corpuscular Volume 85.3 fL (80.0-100.0); Mean Platelet Volume 11.2 fL (9.4-12.4); Platelet Count 308 K/uL (130-400); RDW Coefficient of Variation 13.7 % (11.5-14.5); RDW Standard Deviation 41.1 fL (36.4-46.3); Red Blood Count 4.75 M/uL (4.20-5.40); White Blood Count 10.15 K/ul (4.8-10.8)
[2022-12-19 20:38] LABS: Basophils # (auto) 0.08 K/uL (0-0.2); Basophils % (auto) 0.8 %; Lymphocytes # (auto) 3.16 K/uL (1.2-3.4); Lymphocytes % (auto) 31.1 %; Monocytes # (auto) 0.47 K/uL (0.11-0.59); Monocytes % (auto) 4.6 %; Neutrophils # (auto) 6.24 K/uL (1.40-6.50); Neutrophils % (auto) 61.5 %; Rouleaux 1+
[2022-12-19] MEDS ORDERED: NITROGLYCERIN 2% OINTMENT 30GM TUBE EXT STA (20:50)
[2022-12-19] MEDS ORDERED: ASPIRIN CHEW 324 MG PO STA (20:50)
[2022-12-19] MEDS ORDERED: FAMOTIDINE 20MG IV PUSH 20 MG/5 ML SYR IV STA (20:51)
--- NOTE | 2022-12-19 21:15 | Emergency Department Note ---
Impression & Plan Precordial chest pain, Epigastric abdominal pain, Hypomagnesemia, Acute pancreatitis, Hypertension ED Provider Note NAME: SHAGUFTA HATFIELD AGE: 52 SEX: F : 1970 ARRIVES VIA: Walk-In INFORMANT: [Patient] ED PROVIDER(S): [Ernesto Tai MD] CHIEF COMPLAINT: Chest pain HISTORY OF PRESENT ILLNESS: The patient is a 52-year-old female who has had about 5 hours of lower chest and upper abdominal discomfort. The pain started while she was sitting. She does not feel short of breath. She does feel somewhat bloated. The pain is a heaviness across the area described above. The patient does have a history of 4 coronary stents. The last 3 stents were placed last year in September. The patient has a history of pancreatitis, she wonders if this could be her pancreas or possibly her heart. There has been no cough or congestion, no respiratory complaints. She has been in baseline health lately. PMHx/PSHx: See Below SOCIAL HISTORY: See Below. PHYSICAL EXAM: GENERAL: Patient is in no acute distress. HEENT: No acute trauma, normocephalic atraumatic, mucous membranes moist, no nasal congestion. NECK: No stridor, no adenopathy, no meningismus, trachea is midline. LUNGS: Clear to auscultation bilaterally, no wheeze, no rhonchi, breath sounds equal. HEART: Without murmurs gallops or rubs, regular rate and rhythm. ABDOMEN: Soft, mildly tender in the epigastrium, no peritonitis. EXTREMITIES: No cyanosis or edema, full range of motion of all the joints without pain or difficulty, no signs for acute trauma. NEUROLOGIC: Oriented x 3, no acute motor or sensory deficits, no focal weakness. SKIN: No rash, no jaundice, no diaphoresis. DIFFERENTIAL DIAGNOSIS: Pancreatitis, cardiac ischemia, [place], gastritis, biliary colic, anemia, among others. EMERGENCY DEPARTMENT COURSE/PROCEDURES: Prior/Outside records reviewed: None. ECG per my interpretation: Indication was chest pain. The ECG shows a normal sinus rhythm with a rate of 76. There is a possible old inferior infarct. There is some baseline artifact. There is no ST elevation, there is some nonspecific ST change. No PVCs. The QTc is 443. Continuous Cardiac Monitoring per my interpretation: An order was placed for continuous cardiac monitoring. The monitor shows a rate of 76 with normal sinus rhythm. MEDICAL DECISION MAKING: There is no leukocytosis or concerning anemia. There is a normal platelet count. No coagulopathy. No renal failure. Magnesium is low at 1.5, glucose is somewhat high at 275. No concerning liver enzyme elevation. Lipase is elevated at nearly 300, this elevation could be consistent with early pancreatitis. ECG shows a normal sinus rhythm, no ischemia. Cardiac enzyme testing x1 is not consistent with acute cardiac injury. Chest x-ray per my review does not show mediastinal widening, pneumonia or pneumothorax. On exam, the patient did seem slightly tender in the epigastrium. She was hypertensive. The patient was given a 500 cc saline bolus. She was given 2 inches of nitroglycerin paste. She received IV magnesium, IV Pepcid and oral aspirin. The patient's blood pressure is improved. She has less discomfort compared to earlier. Given the history of coronary disease, given the patient's presentation, given the lipase elevation and the lower magnesium, given her hypertension, I do think a hospital stay would be warranted. I did order for IV Toradol for some additional pain control. I did speak with the patient and case management, the on-call hospitalist was consulted. DISPOSITION: Patient presentation and findings warrant a hospital stay. Past Med/Surg History Medical History Acute hyperglycemia Anxiety CAD (coronary artery disease) Chest pain Diabetes Diabetes mellitus, type II GERD (gastroesophageal reflux disease) HLD (hyperlipidemia) HTN (hypertension) Hypomagnesemia Hypothyroidism NSTEMI (non-ST elevated myocardial infarction) Post-surgical hypothyroidism Substernal chest pain Tobacco use Tobacco use disorder Surgical History History of delivery History of hysterectomy History of thyroidectomy Family History Mother Diabetes Liver cirrhosis secondary to YOU Pulmonary hypertension Grandfather (Paternal) Coronary heart disease [place] in mid 40's Social History Smoking Status: Current every day smoker Tobacco Type: Cigarettes and E-cigarettes / Vaping Cigarettes Per Day: 20; Second Hand Exposure: No; Do You Dip or Chew Tobacco: No; Hx Alcohol Use: No Hx Substance Use: No Preferred Language: Namibian Communication Ability: Effective Pigment Weigher Required: Yes Beliefs That Will Affect Care: None Current Living Situation: Family Current Living Situation Comment: lives with son 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 Feels Safe at Home: Yes Assistive Devices: None Allergies Allergies Allergy/AdvReac Type Severity Reaction Status Date / Time No Known Allergies Allergy Verified 12/01/22 13:54 Home Meds Home Medications Medication Instructions Recorded Confirmed hydroxyzine pamoate 25 mg capsule See Rx Instructions .Route 09/04/20 12/01/22 (Vistaril) .COMPLEX PRN Anxiety levothyroxine 125 mcg tablet 125 mcg PO QAM 09/04/20 12/01/22 (Levoxyl) ursodiol 300 mg capsule 300 mg PO BID 09/04/20 12/01/22 fenofibrate nanocrystallized 145 145 mg PO DAILY 02/22/21 12/01/22 mg tablet pantoprazole 40 mg tablet,delayed 20 mg PO DAILY 02/22/21 12/01/22 release aspirin 81 mg tablet,delayed 81 mg PO HS 09/07/21 12/01/22 release ondansetron 8 mg disintegrating 8 mg PO Q8H PRN Pain 09/07/21 12/01/22 tablet trazodone 50 mg tablet 50 mg PO QS 09/07/21 12/01/22 metformin 500 mg tablet 500 mg PO BID 02/28/22 02/28/22 Previous Rx's Medication Instructions Recorded atorvastatin 80 mg tablet 80 mg PO DAILY #30 tabs 02/24/21 lisinopril 5 mg tablet (Zestril) 5 mg PO QAM #30 tabs 02/24/21 metoprolol tartrate 25 mg tablet 12.5 mg PO BID #30 tabs 02/24/21 ticagrelor 90 mg tablet (Brilinta) 90 mg PO BID #60 tabs 02/24/21 Results & Data (ED) Vital Signs Vital Signs - 24 hr 12/19/22 19:33 12/19/22 20:45 12/19/22 20:30 Temperature 36.7 C Temperature Source Temporal Artery Scan Pulse Rate 83 Pulse Rate [Right Finger] 76 Pulse Rhythm Pulse Rhythm [Right Finger] Regular Pulse Strength [Right Finger] Normal Respiratory Rate 18 18 Respiratory Effort / Characteristics Non-Labored Spontaneous Non-Labored Spontaneous Respiratory Depth Normal Normal Respiratory Pattern Regular Blood Pressure 177/98 H Blood Pressure [Right Arm] 167/106 H Blood Pressure Mean 124 Blood Pressure Mean [Right Arm] 126 Blood Pressure Position [Right Arm] Lying Pulse Oximetry 100 98 Oxygen Delivery Method Room Air Room Air Room Air Sepsis Recent Fever Within 48 Hours No Sepsis New/Unexplained Change in Mental Status No Sepsis Action Taken by Nursing No Action Required 12/19/22 20:30 Temperature Temperature Source Pulse Rate 76 Pulse Rate [Right Finger] Pulse Rhythm Regular Pulse Rhythm [Right Finger] Pulse Strength [Right Finger] Respiratory Rate 18 Respiratory Effort / Characteristics Respiratory Depth Respiratory Pattern Blood Pressure Blood Pressure [Right Arm] Blood Pressure Mean Blood Pressure Mean [Right Arm] Blood Pressure Position [Right Arm] Pulse Oximetry 98 Oxygen Delivery Method Room Air Sepsis Recent Fever Within 48 Hours Sepsis New/Unexplained Change in Mental Status Sepsis Action Taken by Snf Medications Current Medication List: was personally reviewed by me Laboratory Data Attestation: I reviewed the patient's lab results. 12/19/22 19:45 12/19/22 19:45 Lab Results 12/19/22 12/19/22 12/19/22 Range/Units 19:45 19:45 19:45 WBC 10.15 (4.8-10.8) K/ul RBC 4.75 (4.20-5.40) M/uL Hgb 16.4 H (12.0-16.0) g/dl Hct 40.5 (37.0-47.0) % MCV 85.3 (80.0-100.0) fL MCH 34.5 H (25.0-34.0) pg MCHC 40.5 H (32.0-36.0) g/dL RDW Std Deviation 41.1 (36.4-46.3) fL RDW Coeff of Meliton 13.7 (11.5-14.5) % Plt Count 308 (130-400) K/uL MPV 11.2 (9.4-12.4) fL Immature Gran % (Auto) 1.0 % Neut % (Auto) 61.5 % Lymph % (Auto) 31.1 % Spink % (Auto) 4.6 % Eos % (Auto) 1.0 % Baso % (Auto) 0.8 % Neut # (Auto) 6.24 (1.40-6.50) K/uL Lymph # (Auto) 3.16 (1.2-3.4) K/uL Spink # (Auto) 0.47 (0.11-0.59) K/uL Eos # (Auto) 0.10 (0-0.50) K/uL Baso # (Auto) 0.08 (0-0.2) K/uL Immature Gran # (Auto) 0.10 (0.01-0.20) K/uL Rouleaux 1+ PT Cancelled INR Cancelled APTT Cancelled PTT Ratio Cancelled Sodium Cancelled Potassium Cancelled Chloride Cancelled Carbon Dioxide Cancelled Anion Gap Cancelled BUN Cancelled Creatinine Cancelled Est Cr Clr Drug Dosing Cancelled Est GFR ( Amer) Cancelled Est GFR (Non-Af Amer) Cancelled BUN/Creatinine Ratio Cancelled Glucose Cancelled Calcium Cancelled Magnesium Cancelled Total Bilirubin Cancelled AST Cancelled ALT Cancelled Alkaline Phosphatase Cancelled Troponin I High Sens Cancelled Total Protein Cancelled Albumin Cancelled Globulin Cancelled Albumin/Globulin Ratio Cancelled Lipase Cancelled 12/19/22 12/19/22 Range/Units 21:16 21:16 WBC (4.8-10.8) K/ul RBC (4.20-5.40) M/uL Hgb (12.0-16.0) g/dl Hct (37.0-47.0) % MCV (80.0-100.0) fL MCH (25.0-34.0) pg MCHC (32.0-36.0) g/dL RDW Std Deviation (36.4-46.3) fL RDW Coeff of Meliton (11.5-14.5) % Plt Count (130-400) K/uL MPV (9.4-12.4) fL Immature Gran % (Auto) % Neut % (Auto) % Lymph % (Auto) % Spink % (Auto) % Eos % (Auto) % Baso % (Auto) % Neut # (Auto) (1.40-6.50) K/uL Lymph # (Auto) (1.2-3.4) K/uL Spink # (Auto) (0.11-0.59) K/uL Eos # (Auto) (0-0.50) K/uL Baso # (Auto) (0-0.2) K/uL Immature Gran # (Auto) (0.01-0.20) K/uL Rouleaux PT 10.7 INR 1.0 APTT 23.4 PTT Ratio 0.8 Sodium 135 L Potassium 3.8 Chloride 101 Carbon Dioxide 25 Anion Gap 9 BUN 10 Creatinine 0.62 Est Cr Clr Drug Dosing 103.7 Est GFR ( Amer) 120.2 Est GFR (Non-Af Amer) 103.7 BUN/Creatinine Ratio 16.1 Glucose 275 H Calcium 10.2 Magnesium 1.5 L Total Bilirubin 0.3 AST 19 ALT 26 Alkaline Phosphatase 125 H Troponin I High Sens 3.3 Total Protein 7.3 Albumin 4.5 Globulin 2.8 Albumin/Globulin Ratio 1.6 Lipase 278 H Administered Medications Discontinued Medications Aspirin (Aspirin Chew 324 Mg) 324 mg PO NOW STA Stop: 12/19/22 20:51 Last Admin: 12/19/22 21:28 Dose: 324 mg Documented By: MAP AND CHART MOUNTER Famotidine (Pepcid 20mg Iv Push) 20 mg in 5 mls @ 2.5 mls/min IV NOW STA Stop: 12/19/22 20:52 Last Admin: 12/19/22 21:28 Dose: 2.5 mls/min Documented By: MAP AND CHART MOUNTER Nitroglycerin (Nitroglycerin 2% Ointment 30gm Tube) 2 inch EXT NOW STA Stop: 12/19/22 20:51 Last Admin: 12/19/22 21:27 Dose: 2 inch Documented By: MAP AND CHART MOUNTER Imaging Data My Impression: Chest x-ray: As per my review, there is no mediastinal widening, pneumonia or pneumothorax. Discharge Plan Visit Data Chief Complaint: Chest Pain Stated Complaint: CHECK PAIN, HEART ATTACK IN PAST ED Provider: Ernesto Tai Discharge Problem: Precordial chest pain, Epigastric abdominal pain, Hypomagnesemia, Acute pancreatitis, Hypertension Patient Disposition: Admitted As Inpatient Condition: Fair Forms Stand Alone Forms: My [facility] Prescriptions Prescriptions: No Action levothyroxine [Levoxyl] 125 mcg tablet 125 mcg PO QAM ursodiol 300 mg capsule 300 mg PO BID hydroxyzine pamoate [Vistaril] 25 mg capsule See Rx Instructions .ROUTE .COMPLEX PRN (Reason: Anxiety) Rx Instructions: take one and one-half tablet every 6 hours prn anxiety pantoprazole 40 mg tablet,delayed release (DR/EC) 20 mg PO DAILY fenofibrate nanocrystallized 145 mg tablet 145 mg PO DAILY Brilinta 90 mg Tablet 90 mg PO BID Qty: 60 1RF lisinopril [Zestril] 5 mg Tablet 5 mg PO QAM Qty: 30 1RF metoprolol tartrate 25 mg Tablet 12.5 mg PO BID Qty: 30 1RF atorvastatin 80 mg tablet 80 mg PO DAILY Qty: 30 1RF metformin 500 mg tablet 500 mg PO BID ondansetron 8 mg Tablet,Disintegrating 8 mg PO Q8H PRN (Reason: Pain) aspirin 81 mg tablet,delayed release (DR/EC) 81 mg PO HS trazodone 50 mg tablet 50 mg PO QS Referrals Referrals: Edwin Espinoza MD [Primary Care Provider] -
[2022-12-19 22:10] LABS: Albumin Level 4.5 gm/dl (3.4-5.0); Bilirubin,Total 0.3 mg/dl (0.2-1.0); Calcium 10.2 mg/dl (8.6-10.3); Magnesium 1.5 mg/dl (1.7-2.4); Potassium 3.8 mmol/L (3.5-5.1)
[2022-12-19 22:17] LABS: Albumin Globulin Ratio 1.6 (0.9-2); BUN Creatinine Ratio 16.1 (10-20); Creatinine Clr Calc Pharmacy 103.7 ml/min; Est GFR (African American) 120.2 ml/min; Est GFR (Non-African American) 103.7 ml/min; Globulin 2.8 gm/dl (2.5-4.0); Total Protein 7.3 gm/dl (6.0-8.3)
[2022-12-19 22:22] LABS: Troponin I High Sensitivity 3.3 pg/ml (0-14)
[2022-12-19 22:31] LABS: Partial Thromboplastin Ratio 0.8; Partial Thromboplastin Time 23.4 Seconds (21.0-31.0); Prothrombin Time 10.7 Seconds (9.0-12.0)
[2022-12-19] MEDS ORDERED: SODIUM CHLORIDE 0.9% 1000ML 500 ML IV ONE (22:48)
[2022-12-19] MEDS ORDERED: KETOROLAC TROMETHAMINE 15 MG/ML VIAL IV STA (22:48)
[2022-12-19] MEDS: MAGNESIUM SULFATE / D5W 1 GM/100 ML BAG IV SCH (23:15)
[2022-12-19] MEDS ORDERED: LACTATED RINGER'S 1,000 ML IV ONE (23:32)
[2022-12-20] MEDS: MAGNESIUM SULFATE / D5W 1 GM/100 ML BAG IV SCH (00:13)
--- NOTE | 2022-12-20 02:07 | History & Physical Report ---
Date of Service December 20, 2022 Assessment & Plan (1) Acute pancreatitis: Plan: Recurrent pancreatitis History triglyceridemia Gallbladder ultrasound negative for stones hx CAD status post stent hypertension, initially elevated upon arrival at the ER, currently stable hyperlipidemia, on statin Rx DM2 on oral medications, suboptimal control as of hemoglobin A1c of 7.10 December 2021 history of small intestinal bacterial overgrowth status post antibiotic Rx postsurgical hypothyroidism, TSH slight elevated anxiety/mood disorder, at baseline ongoing tobacco abuse GMF Bowel rest, IVF GI consult Re: Recurrent pancreatitis Basal bolus insulin adjusted for n.p.o. status, ISS BG goal 1 10-1 40, update hemoglobin A1c Nicotine patch as needed DVT prophylaxis per Lovenox subcu Full code Text document was generated using [employer] voice recognition software. It may contain grammatical or spelling errors. Kindly contact undersigned for clarification of any documentation item in question. History of Present Illness Chief Complaint: Chest pain Primary Care Provider: Edwin Espinoza MD History obtained from patient and records. Medical history significant for CAD status post stent, hypertension, hyperlipidemia, DM2 on oral medications, recurrent pancreatitis, history of small intestinal bacterial overgrowth, postsurgical hypothyroidism, anxiety/mood disorder, ongoing tobacco abuse. Last confinement September 2021 for NSTEMI. RCA stent placed. Yesterday afternoon, patient experienced achy chest/abdominal discomfort similar to pancreatitis attack. Some nausea, no emesis. No fever, no chills. Chronic diarrhea symptoms attributed to small intestinal bacterial overgrowth syndrome.. Admits to heavy salad dressing intake for lunch. No recent alcohol intake. Medical History as above Surgical History : section, thyroidectomy, hysterectomy, BTL, shoulder surgery Family History : DM, heart disease Personal/Social history : 1 pack daily, no EtOH intake, [employer] employee Allergies Allergy/AdvReac Type Severity Reaction Status Date / Time No Known Allergies Allergy Verified 12/19/22 23:46 Home Medications Medication Instructions Recorded Confirmed Type hydroxyzine pamoate 25 mg capsule See Rx Instructions .Route 09/04/20 12/19/22 History (Vistaril) .COMPLEX PRN Anxiety levothyroxine 125 mcg tablet 125 mcg PO QAM 09/04/20 12/19/22 History (Levoxyl) ursodiol 300 mg capsule 300 mg PO DAILY 09/04/20 12/19/22 History fenofibrate nanocrystallized 145 145 mg PO DAILY 02/22/21 12/19/22 History mg tablet pantoprazole 40 mg tablet,delayed 20 mg PO DAILY 02/22/21 12/19/22 History release atorvastatin 80 mg tablet 80 mg PO DAILY #30 tabs 02/24/21 12/19/22 Rx lisinopril 5 mg tablet (Zestril) 5 mg PO QAM #30 tabs 02/24/21 12/19/22 Rx metoprolol tartrate 25 mg tablet 12.5 mg PO BID #30 tabs 02/24/21 12/19/22 Rx ticagrelor 90 mg tablet (Brilinta) 90 mg PO BID #60 tabs 02/24/21 12/19/22 Rx aspirin 81 mg tablet,delayed 81 mg PO HS 09/07/21 12/19/22 History release ondansetron 8 mg disintegrating 8 mg PO Q8H PRN Nausea And Vomiting 09/07/21 12/19/22 History tablet Past Med/Surg History Medical History Acute hyperglycemia Anxiety CAD (coronary artery disease) Chest pain Diabetes Diabetes mellitus, type II GERD (gastroesophageal reflux disease) HLD (hyperlipidemia) HTN (hypertension) Hypomagnesemia Hypothyroidism NSTEMI (non-ST elevated myocardial infarction) Post-surgical hypothyroidism Substernal chest pain Tobacco use Tobacco use disorder Surgical History History of delivery History of hysterectomy History of thyroidectomy Family History Mother Diabetes Liver cirrhosis secondary to YOU Pulmonary hypertension Grandfather (Paternal) Coronary heart disease [place] in mid 40's Social History Smoking Status: Current every day smoker Tobacco Type: Cigarettes and E-cigarettes / Vaping Cigarettes Per Day: 1 pack; Second Hand Exposure: Yes; Do You Dip or Chew Tobacco: No; Hx Alcohol Use: No Hx Substance Use: No Preferred Language: Nepali Communication Ability: Effective Barrel Washer Required: No Beliefs That Will Affect Care: None Current Living Situation: Family Current Living Situation Comment: Lives with son 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 Feels Safe at Home: Yes Safety Concerns: Feels Safe At This Time Assistive Devices: None Review of Systems Review of Systems: As per HPI, all other systems reviewed and negative Physical Exam Physical Exam: GENERAL: Comfortable, no respiratory distress SKIN: Normal color, warm HEENT: [place] palpebral conjunctivae, no ptosis, dry buccal mucosa NECK : Supple, no tenderness CHEST : CTA, no tenderness HEART : RRR, no obvious murmurs ABDOMEN: Some distention, epigastric tenderness EXTREMITIES : Minimal LE swelling, no LE tenderness, no other conspicuous deformities noted NEUROLOGIC : Coherent, no facial asymmetry, no other gross focality Results & Data Results & Data Vital Signs (Past 12 Hours) Vital Signs Temp Pulse Pulse Resp BP BP Pulse Ox 12/20/22 02:00 63 16 111/70 95 12/20/22 01:15 59 L 14 102/53 L 97 12/20/22 00:30 60 18 105/50 L 95 12/20/22 00:00 67 14 123/71 96 12/19/22 23:30 64 19 124/80 96 12/19/22 23:00 61 14 128/81 96 12/19/22 23:00 60 14 97 12/19/22 23:00 128/81 12/19/22 22:50 68 23 95 12/19/22 22:40 67 17 98 12/19/22 22:30 77 15 95 12/19/22 22:30 165/92 H 12/19/22 22:20 70 19 99 12/19/22 22:10 66 19 97 12/19/22 22:00 69 27 H 97 12/19/22 22:00 156/92 H 12/19/22 21:50 69 26 H 97 12/19/22 21:40 65 17 98 12/19/22 21:30 73 22 98 12/19/22 21:30 161/99 H 12/19/22 21:20 70 15 96 12/19/22 21:10 75 22 98 12/19/22 21:00 67 19 96 12/19/22 21:00 157/91 H 12/19/22 20:50 78 15 98 12/19/22 20:40 72 19 99 12/19/22 20:32 76 19 99 12/19/22 20:30 76 18 98 12/19/22 20:30 76 18 167/106 H 98 12/19/22 20:45 12/19/22 19:33 36.7 C 83 18 177/98 H 100 O2 Del Method 12/20/22 02:00 Room Air 12/20/22 01:15 Room Air 12/20/22 00:30 Room Air 12/20/22 00:00 Room Air 12/19/22 23:30 Room Air 12/19/22 23:00 Room Air 12/19/22 23:00 12/19/22 23:00 12/19/22 22:50 12/19/22 22:40 12/19/22 22:30 12/19/22 22:30 12/19/22 22:20 12/19/22 22:10 12/19/22 22:00 12/19/22 22:00 12/19/22 21:50 12/19/22 21:40 12/19/22 21:30 12/19/22 21:30 12/19/22 21:20 12/19/22 21:10 12/19/22 21:00 12/19/22 21:00 12/19/22 20:50 12/19/22 20:40 12/19/22 20:32 12/19/22 20:30 Room Air 12/19/22 20:30 Room Air 12/19/22 20:45 Room Air 12/19/22 19:33 Room Air Laboratory Results Laboratory Results WBC 10.15 K/ul (4.8-10.8) 12/19/22 19:45 RBC 4.75 M/uL (4.20-5.40) 12/19/22 19:45 Hgb 16.4 g/dl (12.0-16.0) H 12/19/22 19:45 Hct 40.5 % (37.0-47.0) 12/19/22 19:45 MCV 85.3 fL (80.0-100.0) 12/19/22 19:45 MCH 34.5 pg (25.0-34.0) H 12/19/22 19:45 MCHC 40.5 g/dL (32.0-36.0) H 12/19/22 19:45 RDW Std Deviation 41.1 fL (36.4-46.3) 12/19/22 19:45 RDW Coeff of Meliton 13.7 % (11.5-14.5) 12/19/22 19:45 Plt Count 308 K/uL (130-400) 12/19/22 19:45 MPV 11.2 fL (9.4-12.4) 12/19/22 19:45 Immature Gran % (Auto) 1.0 % 12/19/22 19:45 Neut % (Auto) 61.5 % 12/19/22 19:45 Lymph % (Auto) 31.1 % 12/19/22 19:45 Webster % (Auto) 4.6 % 12/19/22 19:45 Eos % (Auto) 1.0 % 12/19/22 19:45 Baso % (Auto) 0.8 % 12/19/22 19:45 Neut # (Auto) 6.24 K/uL (1.40-6.50) 12/19/22 19:45 Lymph # (Auto) 3.16 K/uL (1.2-3.4) 12/19/22 19:45 Webster # (Auto) 0.47 K/uL (0.11-0.59) 12/19/22 19:45 Eos # (Auto) 0.10 K/uL (0-0.50) 12/19/22 19:45 Baso # (Auto) 0.08 K/uL (0-0.2) 12/19/22 19:45 Immature Gran # (Auto) 0.10 K/uL (0.01-0.20) 12/19/22 19:45 Rouleaux 1+ 12/19/22 19:45 PT 10.7 Seconds (9.0-12.0) 12/19/22 21:16 INR 1.0 (0.9-1.1) 12/19/22 21:16 APTT 23.4 Seconds (21.0-31.0) 12/19/22 21:16 PTT Ratio 0.8 12/19/22 21:16 Sodium 135 mmol/L (136-145) L 12/19/22 21:16 Potassium 3.8 mmol/L (3.5-5.1) 12/19/22 21:16 Chloride 101 mmol/L (98-107) 12/19/22 21:16 Carbon Dioxide 25 mmol/L (21-32) 12/19/22 21:16 Anion Gap 9 (3-11) 12/19/22 21:16 BUN 10 mg/dl (6-23) 12/19/22 21:16 Creatinine 0.62 mg/dl (0.6-1.2) 12/19/22 21:16 Est Cr Clr Drug Dosing 103.7 ml/min 12/19/22 21:16 Est GFR ( Amer) 120.2 ml/min 12/19/22 21:16 Est GFR (Non-Af Amer) 103.7 ml/min 12/19/22 21:16 BUN/Creatinine Ratio 16.1 (10-20) 12/19/22 21:16 Glucose 275 mg/dl (70-99(Fasting)) H 12/19/22 21:16 Calcium 10.2 mg/dl (8.6-10.3) 12/19/22 21:16 Magnesium 1.5 mg/dl (1.7-2.4) L 12/19/22 21:16 Total Bilirubin 0.3 mg/dl (0.2-1.0) 12/19/22 21:16 AST 19 U/L (13-39) 12/19/22 21:16 ALT 26 U/L (7-52) 12/19/22 21:16 Alkaline Phosphatase 125 U/L (34-104) H 12/19/22 21:16 Troponin I High Sens 3.3 pg/ml (0-14) 12/19/22 21:16 Total Protein 7.3 gm/dl (6.0-8.3) 12/19/22 21:16 Albumin 4.5 gm/dl (3.4-5.0) 12/19/22 21:16 Globulin 2.8 gm/dl (2.5-4.0) 12/19/22 21:16 Albumin/Globulin Ratio 1.6 (0.9-2) 12/19/22 21:16 Lipase 278 U/L (11-82) H 12/19/22 21:16 SARS-CoV-2, RNA, NAAT NEGATIVE (NEGATIVE) 12/19/22 23:16 Diagnostic Findings GB US : No evidence of cholecystitis or cholelithiasis Chest x-ray as per my interpretation no congestion EKG as per my interpretation : Rate 75, NSR, normal axis, inferior infarct, diffuse T wave abnormalities (1) Acute pancreatitis Acute pancreatitis complication: no infection or necrosis Pancreatitis type: unspecified pancreatitis type Qualified Code(s): K85.90 - Acute pancreatitis without necrosis or infection, unspecified
[2022-12-20] MEDS ORDERED: MoRPHine SULFATE 4 MG/ML 1 ML CARP\\VIAL IV PRN (02:12)
[2022-12-20] MEDS ORDERED: oxyCODONE HCL IR 5 MG TAB (IMMEDIATE RELEASE) PO PRN (02:12)
[2022-12-20] MEDS ORDERED: PROMETHAZINE HCL 12.5 MG in SODIUM CHLORIDE 0.9% 50 ML IV PRN (02:12)
[2022-12-20 02:31] LABS: Thyroid Stimulating Hormone 5.391 uIu/ml (0.300-4.500)
[2022-12-20 03:05] LABS: T4 Free Thyroxine 1.08 ng/dl (0.61-1.60)
[2022-12-20] MEDS ORDERED: GLUCAGON FOR INJ 1 MG VIAL SQ PRN (03:33)
[2022-12-20] MEDS ORDERED: DEXTROSE 50% 50 ML SYRINGE IV PRN (03:33)
[2022-12-20] MEDS ORDERED: GLUCOSE 40% GEL 15 GM TUBE PO PRN (03:33)
[2022-12-20] MEDS ORDERED: ACETAMINOPHEN 325 MG TAB PO PRN (03:33)
[2022-12-20] MEDS ORDERED: LANTUS PER UNIT CHARGE SQ SCH ×2 (03:33→21:00)
[2022-12-20] MEDS ORDERED: CARBOHYDRATES FOR HYPOGLYCEMIA PO PRN (03:33)
[2022-12-20] MEDS ORDERED: INSULIN ASPART PER UNIT CHARGE SC SCH ×2 (03:33→12:00)
[2022-12-20] MEDS ORDERED: GLUCOSE 10 TAB/TUBE PO PRN (03:33)
[2022-12-20] MEDS ORDERED: hydrOXYzine HCl 25 MG TAB PO PRN (03:33)
[2022-12-20] MEDS: LORazepam 0.5 MG TAB PO PRN ×2 (03:56→22:48)
[2022-12-20] MEDS: LACTATED RINGER'S 1,000 ML IV SCH ×5 (04:47→23:00)
[2022-12-20] MEDS: LEVOTHYROXINE SODIUM 125 MCG TABLET PO SCH (05:24)
[2022-12-20] MEDS ORDERED: Nursing to Pharmacy Communication SCH ×2 (05:45→11:45)
--- NOTE | 2022-12-20 06:28 | Ultrasound Report ---
Exam(s): US GALLBLADDER EXAM: US Abdomen Limited, Gallbladder CLINICAL HISTORY: Reason for exam: abd pain. TECHNIQUE: Real-time ultrasound of the right upper quadrant with image documentation. COMPARISON: No relevant prior studies available. FINDINGS: Liver: Fatty liver. Gallbladder: Unremarkable. No gallstones. Common bile duct: CBD caliber measures 4.6 mm. No stones. No dilation. Pancreas: Unremarkable as visualized. IMPRESSION: No evidence of cholecystitis or cholelithiasis Electronically signed by: German Burk MD 12/20/22 06:27 AM
[2022-12-20] MEDS ORDERED: LANTUS PER UNIT CHARGE SQ STA (06:54)
[2022-12-20 07:49] LABS: Basophils # (auto) 0.07 K/uL (0-0.2); Basophils % (auto) 0.9 %; Eosinophils # (auto) 0.07 K/uL (0-0.50); Eosinophils % (auto) 0.9 %; Hemoglobin 12.5 g/dl (12.0-16.0); Immature Granulocytes # (auto) 0.07 K/uL (0.01-0.20); Immature Granulocytes % (auto) 0.9 %; Lymphocytes # (auto) 2.15 K/uL (1.2-3.4); Lymphocytes % (auto) 27.9 %; Mean Corpuscular Hgb Conc 35.7 g/dL (32.0-36.0); Mean Corpuscular Volume 83.9 fL (80.0-100.0); Mean Platelet Volume 10.1 fL (9.4-12.4); Monocytes # (auto) 0.45 K/uL (0.11-0.59); Monocytes % (auto) 5.8 %; Neutrophils # (auto) 4.89 K/uL (1.40-6.50); Neutrophils % (auto) 63.6 %; Platelet Count 168 K/uL (130-400); RDW Coefficient of Variation 13.1 % (11.5-14.5); RDW Standard Deviation 39.3 fL (36.4-46.3); Red Blood Count 4.17 M/uL (4.20-5.40)
[2022-12-20 08:31] LABS: Alanine Aminotransferase 19 U/L (7-52); Albumin Globulin Ratio 1.7 (0.9-2); Albumin Level 3.7 gm/dl (3.4-5.0); Alkaline Phosphatase 97 U/L (34-104); Anion Gap 6 (3-11); BUN Creatinine Ratio 15.8 (10-20); Bilirubin,Total 0.4 mg/dl (0.2-1.0); Blood Urea Nitrogen 9 mg/dl (6-23); Calcium 8.5 mg/dl (8.6-10.3); Carbon Dioxide 25 mmol/L (21-32); Chloride 102 mmol/L (98-107); Creatinine Clr Calc Pharmacy 113.8 ml/min; Est GFR (African American) 123.5 ml/min; Est GFR (Non-African American) 106.6 ml/min; Globulin 2.2 gm/dl (2.5-4.0); Glucose 237 mg/dl (70-99(Fasting)); Sodium 133 mmol/L (136-145); Total Protein 5.9 gm/dl (6.0-8.3)
[2022-12-20] MEDS: ENOXAPARIN INJ 40 MG/0.4 ML SYR SQ SCH (08:37)
[2022-12-20] MEDS: METOPROLOL TARTRATE 25 MG TAB PO SCH ×2 (08:40→20:23)
[2022-12-20] MEDS: ursodioL 300 MG CAP PO SCH (08:40)
[2022-12-20] MEDS: ATORVASTATIN 40 MG TAB PO SCH (08:40)
[2022-12-20] MEDS: FENOFIBRATE NANOCRYSTALLIZED 145 MG TABLET PO SCH (08:40)
[2022-12-20] MEDS: lisinopril 5 MG TAB PO SCH (08:40)
[2022-12-20] MEDS: PANTOprazole 40 MG TAB PO SCH (08:40)
--- NOTE | 2022-12-20 08:41 | XRay Report ---
XR chest 1V portable HISTORY: Chest pain, nonspecific COMPARISON: Chest 09/07/2021. FINDINGS: The lungs are clear. Cardiac silhouette is normal in size. No pleural effusions. No pneumot horax. Surgical clips again noted over the lower neck. Metallic anchor seen within the left glenoid. IMPRESSION: No significant change compared to the prior study. No acute process. ACT 112: Negative or not required by law. Electronically signed by: Blake Rios M.D. 12/20/2022 8:40 AM
[2022-12-20 09:11] LABS: Estimated Average Glucose 303 mg/dl; Hemoglobin A1C 12.2 % (4.5-5.6)
[2022-12-20] MEDS: TICAGRELOR 90 MG TAB PO SCH ×2 (09:55→20:23)
--- NOTE | 2022-12-20 11:35 | Gastrointestinal Consultation ---
Date of Consultation December 20, 2022 Assessment & Plan (1) Dyslipidemia: (2) Acute pancreatitis: Patient presented with abdominal discomfort thought to represent symptoms from acute pancreatitis. Her lipase is improved and the patient is now pain-free and requesting to go home. There are many causes of pancreatitis which could include a medication such as lisinopril or perhaps hypertriglyceridemia. As the patient is now pain-free I would suggest advancing her to a low-fat diet and arranging follow-up with an bag loader machine operator or perhaps funeral arranger for further assessment of hypertriglyceridemia. Recommendations Advance diet as tolerated Patient should stop smoking Consider discontinuation of her LB inhibitor Consider referral to a funeral arranger and bag loader machine operator for hypertriglyceridemia. Please call with any questions or concerns History of Present Illness Reason for Consultation: Abdominal discomfort Requesting Physician: Dr Cruz Attending Physician: Bang Cruz MD History of Present Illness Patient presented to the emergency room yesterday evening with a complaint of abdominal discomfort. The patient thought she may have symptoms of recurrent pancreatitis. She notes that today she feels much better and notes that her pain is completely resolved. The patient is insisting that she be discharged to go home. She does have a history of pancreatitis and underwent endoscopic ultrasound several years ago which was within normal limits. The patient does have a long history of smoking which was thought to be contributing to her recurrent pancreatitis. The patient is also presently on an LB inhibitor which could cause pancreatitis as well. She denies having fevers chills sweats or rigors. She denies having difficulty with swallowing pain with swallowing or irregularity of bowel habits. Allergies Allergy/AdvReac Type Severity Reaction Status Date / Time No Known Allergies Allergy Verified 12/19/22 23:46 Home Medications Medication Instructions Recorded Confirmed Type hydroxyzine pamoate 25 mg capsule See Rx Instructions .Route 09/04/20 12/19/22 History (Vistaril) .COMPLEX PRN Anxiety levothyroxine 125 mcg tablet 125 mcg PO QAM 09/04/20 12/19/22 History (Levoxyl) ursodiol 300 mg capsule 300 mg PO DAILY 09/04/20 12/19/22 History fenofibrate nanocrystallized 145 145 mg PO DAILY 02/22/21 12/19/22 History mg tablet pantoprazole 40 mg tablet,delayed 20 mg PO DAILY 02/22/21 12/19/22 History release atorvastatin 80 mg tablet 80 mg PO DAILY #30 tabs 02/24/21 12/19/22 Rx lisinopril 5 mg tablet (Zestril) 5 mg PO QAM #30 tabs 02/24/21 12/19/22 Rx metoprolol tartrate 25 mg tablet 12.5 mg PO BID #30 tabs 02/24/21 12/19/22 Rx ticagrelor 90 mg tablet (Brilinta) 90 mg PO BID #60 tabs 02/24/21 12/19/22 Rx aspirin 81 mg tablet,delayed 81 mg PO HS 09/07/21 12/19/22 History release ondansetron 8 mg disintegrating 8 mg PO Q8H PRN Nausea And Vomiting 09/07/21 History tablet Patient History Medical History Acute hyperglycemia Anxiety CAD (coronary artery disease) Chest pain Diabetes Diabetes mellitus, type II GERD (gastroesophageal reflux disease) HLD (hyperlipidemia) HTN (hypertension) Hypomagnesemia Hypothyroidism NSTEMI (non-ST elevated myocardial infarction) Post-surgical hypothyroidism Substernal chest pain Tobacco use Tobacco use disorder Surgical History History of delivery History of hysterectomy History of thyroidectomy Family History Mother Diabetes Liver cirrhosis secondary to YOU Pulmonary hypertension Grandfather (Paternal) Coronary heart disease [place] in mid 40's Social History Smoking Status: Current every day smoker Tobacco Type: Cigarettes and E-cigarettes / Vaping Cigarettes Per Day: 1 pack; Second Hand Exposure: Yes; Do You Dip or Chew Tobacco: No; Hx Alcohol Use: No Hx Substance Use: No Preferred Language: Polish Communication Ability: Effective Clerical Assigner Required: No Beliefs That Will Affect Care: None Current Living Situation: Family Current Living Situation Comment: Lives with son 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 Feels Safe at Home: Yes Safety Concerns: Feels Safe At This Time Assistive Devices: None Review of Systems Eyes: no diplopia Ear, Nose, Mouth, Throat: no ear trauma Respiratory: no hemoptysis and no wheezing Cardiovascular: no chest pain with activity and no dyspnea at rest Gastrointestinal: no nausea, no hematemesis and no change in stools Genitourinary: no urinary frequency Neurologic: no falls and no paralysis Psychiatric: no hopelessness Endocrine: no polydipsia Hematologic / Lymphatic: no coagulopathy Physical Exam Eyes: PERRL, conjunctivae normal, anicteric sclerae ENMT: external ear and nose normal, oropharynx normal Neck: trachea midline, no thyromegaly Respiratory: Auscultation: + diminished lung sounds; no crackles and no wheezes Cardiovascular: Rate/Rhythm: regular rate; not tachycardic Gastrointestinal (Abdomen): Percussion/Palpation: abdomen soft; abdomen nontender and no guarding Skin: no erythema and no mottling Results & Data Vital Signs (Past 12 Hours) Vital Signs Temp Pulse Resp BP Pulse Ox O2 Del Method 12/20/22 08:17 36.3 C L 64 18 134/87 97 Room Air 12/20/22 03:42 Room Air 12/20/22 03:42 36.4 C L 74 16 127/78 99 Room Air 12/20/22 03:00 59 L 16 111/77 96 Room Air 12/20/22 02:00 63 16 111/70 95 Room Air 12/20/22 01:15 59 L 14 102/53 L 97 Room Air 12/20/22 00:30 60 18 105/50 L 95 Room Air 12/20/22 00:00 67 14 123/71 96 Room Air Laboratory Results Laboratory Results - last 24 hr 12/19/22 12/19/22 12/19/22 19:45 19:45 19:45 WBC 10.15 RBC 4.75 Hgb 16.4 H Hct 40.5 MCV 85.3 MCH 34.5 H MCHC 40.5 H RDW Std Deviation 41.1 RDW Coeff of Meliton 13.7 Plt Count 308 MPV 11.2 Immature Gran % (Auto) 1.0 Neut % (Auto) 61.5 Lymph % (Auto) 31.1 Phillips % (Auto) 4.6 Eos % (Auto) 1.0 Baso % (Auto) 0.8 Neut # (Auto) 6.24 Lymph # (Auto) 3.16 Phillips # (Auto) 0.47 Eos # (Auto) 0.10 Baso # (Auto) 0.08 Immature Gran # (Auto) 0.10 Rouleaux 1+ PT Cancelled INR Cancelled APTT Cancelled PTT Ratio Cancelled Sodium Cancelled Potassium Cancelled Chloride Cancelled Carbon Dioxide Cancelled Anion Gap Cancelled BUN Cancelled Creatinine Cancelled Est Cr Clr Drug Dosing Cancelled Est GFR ( Amer) Cancelled Est GFR (Non-Af Amer) Cancelled BUN/Creatinine Ratio Cancelled Glucose Cancelled POC Glucose Estimat Average Glucose Hemoglobin A1c Calcium Cancelled Magnesium Cancelled Total Bilirubin Cancelled AST Cancelled ALT Cancelled Alkaline Phosphatase Cancelled Troponin I High Sens Cancelled Total Protein Cancelled Albumin Cancelled Globulin Cancelled Albumin/Globulin Ratio Cancelled Triglycerides Lipase Cancelled TSH Free T4 SARS-CoV-2, RNA, NAAT 12/19/22 12/19/22 12/19/22 21:16 21:16 23:16 WBC RBC Hgb Hct MCV MCH MCHC RDW Std Deviation RDW Coeff of Meliton Plt Count MPV Immature Gran % (Auto) Neut % (Auto) Lymph % (Auto) Phillips % (Auto) Eos % (Auto) Baso % (Auto) Neut # (Auto) Lymph # (Auto) Phillips # (Auto) Eos # (Auto) Baso # (Auto) Immature Gran # (Auto) Rouleaux PT 10.7 INR 1.0 APTT 23.4 PTT Ratio 0.8 Sodium 135 L Potassium 3.8 Chloride 101 Carbon Dioxide 25 Anion Gap 9 BUN 10 Creatinine 0.62 Est Cr Clr Drug Dosing 103.7 Est GFR ( Amer) 120.2 Est GFR (Non-Af Amer) 103.7 BUN/Creatinine Ratio 16.1 Glucose 275 H POC Glucose Estimat Average Glucose Hemoglobin A1c Calcium 10.2 Magnesium 1.5 L Total Bilirubin 0.3 AST 19 ALT 26 Alkaline Phosphatase 125 H Troponin I High Sens 3.3 Total Protein 7.3 Albumin 4.5 Globulin 2.8 Albumin/Globulin Ratio 1.6 Triglycerides Lipase 278 H TSH Free T4 SARS-CoV-2, RNA, NAAT NEGATIVE 12/20/22 12/20/22 12/20/22 01:51 01:52 05:13 WBC RBC Hgb Hct MCV MCH MCHC RDW Std Deviation RDW Coeff of Meliton Plt Count MPV Immature Gran % (Auto) Neut % (Auto) Lymph % (Auto) Phillips % (Auto) Eos % (Auto) Baso % (Auto) Neut # (Auto) Lymph # (Auto) Phillips # (Auto) Eos # (Auto) Baso # (Auto) Immature Gran # (Auto) Rouleaux PT INR APTT PTT Ratio Sodium Potassium Chloride Carbon Dioxide Anion Gap BUN Creatinine Est Cr Clr Drug Dosing Est GFR ( Amer) Est GFR (Non-Af Amer) BUN/Creatinine Ratio Glucose POC Glucose 295 H Estimat Average Glucose 303 Hemoglobin A1c 12.2 H Calcium Magnesium Total Bilirubin AST ALT Alkaline Phosphatase Troponin I High Sens Total Protein Albumin Globulin Albumin/Globulin Ratio Triglycerides Lipase TSH 5.391 H Free T4 1.08 SARS-CoV-2, RNA, NAAT 12/20/22 12/20/22 12/20/22 06:57 06:57 06:57 WBC 7.70 RBC 4.17 L Hgb 12.5 D Hct 35.0 L MCV 83.9 MCH 30.0 MCHC 35.7 D RDW Std Deviation 39.3 RDW Coeff of Meliton 13.1 Plt Count 168 MPV 10.1 Immature Gran % (Auto) 0.9 Neut % (Auto) 63.6 Lymph % (Auto) 27.9 Phillips % (Auto) 5.8 Eos % (Auto) 0.9 Baso % (Auto) 0.9 Neut # (Auto) 4.89 Lymph # (Auto) 2.15 Phillips # (Auto) 0.45 Eos # (Auto) 0.07 Baso # (Auto) 0.07 Immature Gran # (Auto) 0.07 Rouleaux PT INR APTT PTT Ratio Sodium 133 L Potassium TNP Chloride 102 Carbon Dioxide 25 Anion Gap 6 BUN 9 Creatinine 0.57 L Est Cr Clr Drug Dosing 113.8 Est GFR ( Amer) 123.5 Est GFR (Non-Af Amer) 106.6 BUN/Creatinine Ratio 15.8 Glucose 237 H POC Glucose Estimat Average Glucose Hemoglobin A1c Calcium 8.5 L Magnesium Total Bilirubin 0.4 AST TNP ALT 19 Alkaline Phosphatase 97 Troponin I High Sens Total Protein 5.9 L Albumin 3.7 Globulin 2.2 L Albumin/Globulin Ratio 1.7 Triglycerides 1753 H Lipase TSH Free T4 SARS-CoV-2, RNA, NAAT 12/20/22 08:38 WBC RBC Hgb Hct MCV MCH MCHC RDW Std Deviation RDW Coeff of Meliton Plt Count MPV Immature Gran % (Auto) Neut % (Auto) Lymph % (Auto) Phillips % (Auto) Eos % (Auto) Baso % (Auto) Neut # (Auto) Lymph # (Auto) Phillips # (Auto) Eos # (Auto) Baso # (Auto) Immature Gran # (Auto) Rouleaux PT INR APTT PTT Ratio Sodium Potassium 4.0 Chloride Carbon Dioxide Anion Gap BUN Creatinine Est Cr Clr Drug Dosing Est GFR ( Amer) Est GFR (Non-Af Amer) BUN/Creatinine Ratio Glucose POC Glucose Estimat Average Glucose Hemoglobin A1c Calcium Magnesium Total Bilirubin AST 15 ALT Alkaline Phosphatase Troponin I High Sens Total Protein Albumin Globulin Albumin/Globulin Ratio Triglycerides Lipase TSH Free T4 SARS-CoV-2, RNA, NAAT Diagnostic Findings [place], [place] [phone] Ultrasound Report Patient:SHAGUFTA HATFIELD Admit Date:12/20/22 MR#:[id number] Address1:[address] Acct ID:[id number] Address2: Date:1970 [facility] Zip:[place] [address] Age:52 Exam(s): US GALLBLADDER EXAM: US Abdomen Limited, Gallbladder CLINICAL HISTORY: Reason for exam: abd pain. TECHNIQUE: Real-time ultrasound of the right upper quadrant with image documentation. COMPARISON: No relevant prior studies available. FINDINGS: Liver: Fatty liver. Gallbladder: Unremarkable. No gallstones. Common bile duct: CBD caliber measures 4.6 mm. No stones. No dilation. Pancreas: Unremarkable as visualized. IMPRESSION: No evidence of cholecystitis or cholelithiasis Electronically signed by: German Burk MD 12/20/22 06:27 AM (2) Acute pancreatitis Acute pancreatitis complication: no infection or necrosis Pancreatitis type: unspecified pancreatitis type Qualified Code(s): K85.90 - Acute pancreatitis without necrosis or infection, unspecified
[2022-12-20] MEDS: INSULIN ASPART PER UNIT CHARGE SC SCH ×3 (13:18→21:46)
--- NOTE | 2022-12-20 13:25 | Hospitalist Progress Note ---
Date of Service December 20, 2022 Assessment & Plan (1) Acute pancreatitis: Plan: Recurrent pancreatitis Likely due to uncontrolled Triglyceridemia --Lipase 278 --Triglycerides 1753 --Gall Bladder USD:No evidence of cholecystitis or cholelithiasis Normal lactate, calcium levels Does not meet SIRS criteria Likely doesn't need high Insulin drip for hypertriglyceridemia management Continue IV fluids, pain control Continue fenofibrate Advance diet as tolerated Appreciate GI input Consult to quit smoking Will need follow-up with cardiology/endocrinology/[facility] lipid clinic upon discharge for hypertriglyceridemia and DM management DM II--Uncontrolled HbA1C 12.2 Patient not taking Metformin due to side effects Currently not on any medications for diabetes management Continue insulin while hospitalized Monitor BGs religious educator consulted H/O Tobacco use disorder Nicotine patch if needed H/O CAD S/P Stent Continue aspirin, Brilinta, metoprolol, statin Hypertension Continue lisinopril, metoprolol Monitor BP Hyperlipidemia on statin H/O Small intestinal bacterial overgrowth S/P antibiotic therapy Postsurgical hypothyroidism TSH 5.39 Continue levothyroxine Anxiety/mood disorder As per records DVT Px: Lovenox SQ Code Status Full code Admission and Anticipated Discharge Date Admission Date: December 20, 2022 Subjective Patient is seen and examined at bedside States her abdominal pain is much improved Denies any nausea, vomiting, chest pain, dyspnea, dizziness Discussed with gastroenterology today Eager to get discharged Review of Systems Review of Systems: All systems reviewed & are unremarkable except as noted in Subjective Physical Exam Physical Exam: Physical Exam: Vitals signs as noted above General Appearance:Moderately built and nourished, no apparent distress Head: normocephalic, Atraumatic Eyes: normal inspection, EOMI Neck: supple, Trachea midline Respiratory/Chest: Decreased breath sounds, CTA, No accessory muscle use Cardiovascular: S1, S2, No murmur Abdomen/GI:Soft, Non tender, Bowel sounds present Extremities/Musculoskeletal:normal inspection, no edema Neurologic/Psych:AAOX3, grossly no focal neurological deficits Skin: normal color, warm Results & Data Results & Data Vital Signs (Past 12 Hours) Vital Signs Temp Pulse Resp BP Pulse Ox O2 Del Method 12/20/22 08:17 36.3 C L 64 18 134/87 97 Room Air 12/20/22 03:42 Room Air 12/20/22 03:42 36.4 C L 74 16 127/78 99 Room Air 12/20/22 03:00 59 L 16 111/77 96 Room Air 12/20/22 02:00 63 16 111/70 95 Room Air Laboratory Results Short CBC 12/19/22 12/20/22 Range/Units 19:45 06:57 WBC 10.15 7.70 (4.8-10.8) K/ul Hgb 16.4 H 12.5 D (12.0-16.0) g/dl Hct 40.5 35.0 L (37.0-47.0) % Plt Count 308 168 (130-400) K/uL BMP 12/19/22 12/19/22 12/20/22 19:45 21:16 06:57 Sodium Cancelled 135 L 133 L Potassium Cancelled 3.8 TNP Chloride Cancelled 101 102 Carbon Dioxide Cancelled 25 25 BUN Cancelled 10 9 Creatinine Cancelled 0.62 0.57 L Glucose Cancelled 275 H 237 H Calcium Cancelled 10.2 8.5 L 12/20/22 08:38 Sodium Potassium 4.0 Chloride Carbon Dioxide BUN Creatinine Glucose Calcium Liver Function 12/19/22 12/19/22 12/20/22 Range/Units 19:45 21:16 06:57 Total Bilirubin Cancelled 0.3 0.4 AST Cancelled 19 TNP ALT Cancelled 26 19 Alkaline Phosphatase Cancelled 125 H 97 Albumin Cancelled 4.5 3.7 12/20/22 Range/Units 08:38 Total Bilirubin AST 15 ALT Alkaline Phosphatase Albumin (1) Acute pancreatitis Acute pancreatitis complication: no infection or necrosis Pancreatitis type: unspecified pancreatitis type Qualified Code(s): K85.90 - Acute pancreatitis without necrosis or infection, unspecified
[2022-12-20] MEDS ORDERED: PHARMACY GLYCEMIC MGMT CONSULT PRN (13:45)
--- NOTE | 2022-12-20 14:10 | Electrocardiogram Report ---
Test Reason : Blood Pressure : / mmHG Vent. Rate : 076 BPM Atrial Rate : 076 BPM P-R Int : 162 ms QRS Dur : 088 ms QT Int : 394 ms P-R-T Axes : 068 044 050 degrees QTc Int : 443 ms Normal sinus rhythm Possible Inferior infarct , age undetermined Poor R wave progression, consider anterior NH vs. lead placement vs. LVH Abnormal ECG When compared with ECG of 08-SEP-2021 17:57, No significant change was found Confirmed by Yair Bob ([id number]) on 12/20/2022 2:10:23 PM Referred By: REFERRED SELF Confirmed By:Yair Bob
--- NOTE | 2022-12-20 14:47 | Pharmacy Report ---
Pharmacy Glycemic Short Note 2 - Date of Service December 20, 2022 - Glycemic Short BSG Results (Last 24 hours): 12/19/22 12/19/22 12/20/22 19:45 21:16 05:13 Glucose Cancelled 275 H POC Glucose 295 H 12/20/22 12/20/22 06:57 12:20 Glucose 237 H POC Glucose 197 H OUTPATIENT ANTIDIABETIC REGIMEN: * Metformin * HbA1c 12.2% on 12/20/22 ASSESSMENT: * 52 yo F with uncontrolled T2DM admitted for pancreatitis, likely hypertriglyceridemia-induced. High-dose insulin infusion being considered, but not started as of yet due to good vital signs and current absence of end- organ damage. If needed/ordered in the future, pharmacy will sign-off glycemic management as this is a *non-titratable drip* unless adjusted by the provider and management is more based on *fluids* that pharmacy cannot manage independently. * Diet ordered for now, but given pancreatitis, may or may not be NPO in the future. Will not be aggressive with Lantus. * Will be slightly more aggressive with Novolog - weight-based moderate stress estimate but with slightly tighter correction factor PLAN FOR INPATIENT GLYCEMIC CONTROL: * Hold outpatient oral diabetes medications * Basal insulin * Lantus 10 units SQ x1 now (total of 20 units today) * Bolus insulin * NovoLog per scale ACHS or Q6hrs while NPO * Goal Range: Low 110 mg/dL - High 140 mg/dL * Correction Factor: 25 mg/dL/unit * Nutritional / Prandial insulin per carb ratio of 1 unit per 11 grams CHO consumed
[2022-12-20] MEDS ORDERED: LANTUS PER UNIT CHARGE SC ONE (15:00)
[2022-12-20] MEDS ORDERED: ASPIRIN 81 MG ECTAB PO SCH (21:00)
[2022-12-21] MEDS: LACTATED RINGER'S 1,000 ML IV SCH ×3 (04:36→14:10)
[2022-12-21] MEDS: LEVOTHYROXINE SODIUM 125 MCG TABLET PO SCH (06:40)
[2022-12-21 07:07] LABS: Hematocrit (blood only) 35.6 % (37.0-47.0); Hemoglobin 12.5 g/dl (12.0-16.0); Mean Corpuscular Hemoglobin 29.8 pg (25.0-34.0); Mean Corpuscular Hgb Conc 35.1 g/dL (32.0-36.0); Mean Platelet Volume 10.5 fL (9.4-12.4); Platelet Count 163 K/uL (130-400); RDW Coefficient of Variation 13.3 % (11.5-14.5); RDW Standard Deviation 41.1 fL (36.4-46.3); Red Blood Count 4.19 M/uL (4.20-5.40)
[2022-12-21 07:23] LABS: BUN Creatinine Ratio 14.5 (10-20); Est GFR (Non-African American) 107.8 ml/min; Potassium 3.8 mmol/L (3.5-5.1)
[2022-12-21 07:42] LABS: Magnesium 1.5 mg/dl (1.7-2.4)
[2022-12-21] MEDS ORDERED: LANTUS PER UNIT CHARGE SC ONE ×2 (08:15→21:00)
[2022-12-21] MEDS: ENOXAPARIN INJ 40 MG/0.4 ML SYR SQ SCH (08:27)
[2022-12-21] MEDS: METOPROLOL TARTRATE 25 MG TAB PO SCH (08:31)
[2022-12-21] MEDS: ursodioL 300 MG CAP PO SCH (08:31)
[2022-12-21] MEDS: ATORVASTATIN 40 MG TAB PO SCH (08:31)
[2022-12-21] MEDS: FENOFIBRATE NANOCRYSTALLIZED 145 MG TABLET PO SCH (08:31)
[2022-12-21] MEDS: lisinopril 5 MG TAB PO SCH (08:31)
[2022-12-21] MEDS: PANTOprazole 40 MG TAB PO SCH (08:31)
[2022-12-21] MEDS: TICAGRELOR 90 MG TAB PO SCH (08:31)
[2022-12-21] MEDS: INSULIN ASPART PER UNIT CHARGE SC SCH ×2 (08:51→12:50)
[2022-12-21] MEDS ORDERED: MAGNESIUM SULFATE / D5W 1 GM/100 ML BAG IV ONE (09:52)
[2022-12-21] MEDS: LORazepam 0.5 MG TAB PO PRN (10:40)
--- NOTE | 2022-12-21 14:36 | Hospitalist Progress Note ---
Date of Service December 21, 2022 Assessment & Plan (1) Acute pancreatitis: Plan: Recurrent pancreatitis Likely due to uncontrolled Triglyceridemia --Lipase 278 --Triglycerides 1753>1149 --Gall Bladder USD:No evidence of cholecystitis or cholelithiasis Normal lactate, calcium levels Does not meet SIRS criteria Likely doesn't need high Insulin drip for hypertriglyceridemia management Continue IV fluids, pain control Continue fenofibrate Advance diet as tolerated Appreciate GI input Consult to quit smoking Explained in detail importance of treating high triglycerides levels--patient upset about prolonged need for hospitalization Advised to follow up with cardiology/endocrinology/[facility] lipid clinic upon discharge for hypertriglyceridemia and DM management Monitor triglyceride levels Advised to obtain lipid panel in 1 week and follow up with PCP DM II--Uncontrolled HbA1C 12.2 Patient not taking Metformin due to side effects Currently not on any medications for diabetes management Offered to be started on Insulin--Patient refused, prefers to restart Metformin and discuss with PCP for further care Explained in detail risks and complications of uncontrolled DM II and hypertriglyceridemia. Patient understands and prefers to follow with PCP Continue insulin while hospitalized Monitor BGs smoke jumper supervisor consulted Hypomagnesemia Repleted electrolytes as needed Monitor H/O Tobacco use disorder Nicotine patch if needed H/O CAD S/P Stent Continue aspirin, Brilinta, metoprolol, statin Hypertension Continue lisinopril, metoprolol Monitor BP Hyperlipidemia on statin H/O Small intestinal bacterial overgrowth S/P antibiotic therapy Postsurgical hypothyroidism TSH 5.39 Continue levothyroxine Anxiety/mood disorder As per records DVT Px: Lovenox SQ Code Status Full code Admission and Anticipated Discharge Date Admission Date: December 20, 2022 Subjective Patient is seen and examined at bedside Patient was upset that she wasn't discharged yesterday Explained in detail as to why she needed continued hospitalization Denies any recurrence of abdominal pain Tolerating diet Also denies any nausea, vomiting, chest pain, dyspnea, dizziness Review of Systems Review of Systems: All systems reviewed & are unremarkable except as noted in Subjective Physical Exam Physical Exam: Physical Exam: Vitals signs as noted above General Appearance:Moderately built and nourished, no apparent distress Head: normocephalic, Atraumatic Eyes: normal inspection, EOMI Neck: supple, Trachea midline Respiratory/Chest: Decreased breath sounds, CTA, No accessory muscle use Cardiovascular: S1, S2, No murmur Abdomen/GI:Soft, Non tender, Bowel sounds present Extremities/Musculoskeletal:normal inspection, no edema Neurologic/Psych:AAOX3, grossly no focal neurological deficits Skin: normal color, warm Results & Data Results & Data Vital Signs (Past 12 Hours) Vital Signs Temp Pulse Resp BP Pulse Ox O2 Del Method 12/21/22 07:24 36.7 C 66 18 165/94 H 97 Room Air Laboratory Results Short CBC 12/21/22 Range/Units 06:33 WBC 8.60 (4.8-10.8) K/ul Hgb 12.5 (12.0-16.0) g/dl Hct 35.6 L (37.0-47.0) % Plt Count 163 (130-400) K/uL BMP 12/21/22 06:33 Sodium 135 L Potassium 3.8 Chloride 104 Carbon Dioxide 25 BUN 8 Creatinine 0.55 L Glucose 259 H Calcium 9.0 (1) Acute pancreatitis Acute pancreatitis complication: no infection or necrosis Pancreatitis type: unspecified pancreatitis type Qualified Code(s): K85.90 - Acute pancreatitis without necrosis or infection, unspecified
--- NOTE | 2022-12-21 15:54 | Discharge Summary ---
Date of Service December 21, 2022 Admission HPI Per Admitting Provider History obtained from patient and records. Medical history significant for CAD status post stent, hypertension, hyperlipidemia, DM2 on oral medications, recurrent pancreatitis, history of small intestinal bacterial overgrowth, postsurgical hypothyroidism, anxiety/mood disorder, ongoing tobacco abuse. Last confinement September 2021 for NSTEMI. RCA stent placed. Yesterday afternoon, patient experienced achy chest/abdominal discomfort similar to pancreatitis attack. Some nausea, no emesis. No fever, no chills. Chronic diarrhea symptoms attributed to small intestinal bacterial overgrowth syndrome.. Admits to heavy salad dressing intake for lunch. No recent alcohol intake. Medical History as above Surgical History : section, thyroidectomy, hysterectomy, BTL, shoulder surgery Family History : DM, heart disease Personal/Social history : 1 pack daily, no EtOH intake, [employer] employee Principal Diagnosis Recurrent pancreatitis Hypertriglyceridemia Uncontrolled diabetes mellitus Hypomagnesemia Discharge Data Allergies Allergy/AdvReac Type Severity Reaction Status Date / Time No Known Allergies Allergy Verified 12/19/22 23:46 Consultations 12/19/22 22:50 ED Decision to Admit Stat 12/20/22 02:12 Consult Gastroenterology Routine Procedures Performed Laboratory Results WBC 8.60 K/ul (4.8-10.8) 12/21/22 06:33 RBC 4.19 M/uL (4.20-5.40) L 12/21/22 06:33 Hgb 12.5 g/dl (12.0-16.0) 12/21/22 06:33 Hct 35.6 % (37.0-47.0) L 12/21/22 06:33 MCV 85.0 fL (80.0-100.0) 12/21/22 06:33 MCH 29.8 pg (25.0-34.0) 12/21/22 06:33 MCHC 35.1 g/dL (32.0-36.0) 12/21/22 06:33 RDW Std Deviation 41.1 fL (36.4-46.3) 12/21/22 06:33 RDW Coeff of Meliton 13.3 % (11.5-14.5) 12/21/22 06:33 Plt Count 163 K/uL (130-400) 12/21/22 06:33 MPV 10.5 fL (9.4-12.4) 12/21/22 06:33 Immature Gran % (Auto) 0.9 % 12/20/22 06:57 Neut % (Auto) 63.6 % 12/20/22 06:57 Lymph % (Auto) 27.9 % 12/20/22 06:57 [place] % (Auto) 5.8 % 12/20/22 06:57 Eos % (Auto) 0.9 % 12/20/22 06:57 Baso % (Auto) 0.9 % 12/20/22 06:57 Neut # (Auto) 4.89 K/uL (1.40-6.50) 12/20/22 06:57 Lymph # (Auto) 2.15 K/uL (1.2-3.4) 12/20/22 06:57 [place] # (Auto) 0.45 K/uL (0.11-0.59) 12/20/22 06:57 Eos # (Auto) 0.07 K/uL (0-0.50) 12/20/22 06:57 Baso # (Auto) 0.07 K/uL (0-0.2) 12/20/22 06:57 Immature Gran # (Auto) 0.07 K/uL (0.01-0.20) 12/20/22 06:57 Rouleaux 1+ 12/19/22 19:45 PT 10.7 Seconds (9.0-12.0) 12/19/22 21:16 INR 1.0 (0.9-1.1) 12/19/22 21:16 APTT 23.4 Seconds (21.0-31.0) 12/19/22 21:16 PTT Ratio 0.8 12/19/22 21:16 Sodium 135 mmol/L (136-145) L 12/21/22 06:33 Potassium 3.8 mmol/L (3.5-5.1) 12/21/22 06:33 Chloride 104 mmol/L (98-107) 12/21/22 06:33 Carbon Dioxide 25 mmol/L (21-32) 12/21/22 06:33 Anion Gap 6 (3-11) 12/21/22 06:33 BUN 8 mg/dl (6-23) 12/21/22 06:33 Creatinine 0.55 mg/dl (0.6-1.2) L 12/21/22 06:33 Est Cr Clr Drug Dosing 118.0 ml/min 12/21/22 06:33 Est GFR ( Amer) 125.0 ml/min 12/21/22 06:33 Est GFR (Non-Af Amer) 107.8 ml/min 12/21/22 06:33 BUN/Creatinine Ratio 14.5 (10-20) 12/21/22 06:33 Glucose 259 mg/dl (70-99(Fasting)) H 12/21/22 06:33 POC Glucose 277 mg/dl (70-99) H 12/21/22 12:17 Estimat Average Glucose 303 mg/dl 12/20/22 01:51 Hemoglobin A1c 12.2 % (4.5-5.6) H 12/20/22 01:51 Lactate 1.6 mmol/L (0.4-2.0) 12/20/22 14:22 Calcium 9.0 mg/dl (8.6-10.3) 12/21/22 06:33 Magnesium 1.5 mg/dl (1.7-2.4) L 12/21/22 06:33 Total Bilirubin 0.4 mg/dl (0.2-1.0) 12/20/22 06:57 AST 15 U/L (13-39) 12/20/22 08:38 ALT 19 U/L (7-52) 12/20/22 06:57 Alkaline Phosphatase 97 U/L (34-104) 12/20/22 06:57 Troponin I High Sens 3.3 pg/ml (0-14) 12/19/22 21:16 Total Protein 5.9 gm/dl (6.0-8.3) L 12/20/22 06:57 Albumin 3.7 gm/dl (3.4-5.0) 12/20/22 06:57 Globulin 2.2 gm/dl (2.5-4.0) L 12/20/22 06:57 Albumin/Globulin Ratio 1.7 (0.9-2) 12/20/22 06:57 Triglycerides 809 mg/dl (0-150) H 12/21/22 15:17 Lipase 278 U/L (11-82) H 12/19/22 21:16 TSH 5.391 uIu/ml (0.300-4.500) H 12/20/22 01:52 Free T4 1.08 ng/dl (0.61-1.60) 12/20/22 01:52 SARS-CoV-2, RNA, NAAT NEGATIVE (NEGATIVE) 12/19/22 23:16 Impressions Chest X-Ray 12/19/22 19:42 XR chest 1V portable HISTORY: Chest pain, nonspecific COMPARISON: Chest 09/07/2021. FINDINGS: The lungs are clear. Cardiac silhouette is normal in size. No pleural effusions. No pneumothorax. Surgical clips again noted over the lower neck. Metallic anchor seen within the left glenoid. IMPRESSION: No significant change compared to the prior study. No acute process. ACT 112: Negative or not required by law. Electronically signed by: Blake Rios M.D. 12/20/2022 8:40 AM Gallbladder Ultrasound 12/20/22 00:23 Exam(s): US GALLBLADDER EXAM: US Abdomen Limited, Gallbladder CLINICAL HISTORY: Reason for exam: abd pain. TECHNIQUE: Real-time ultrasound of the right upper quadrant with image documentation. COMPARISON: No relevant prior studies available. FINDINGS: Liver: Fatty liver. Gallbladder: Unremarkable. No gallstones. Common bile duct: CBD caliber measures 4.6 mm. No stones. No dilation. Pancreas: Unremarkable as visualized. IMPRESSION: No evidence of cholecystitis or cholelithiasis Electronically signed by: German uBrk MD 12/20/22 06:27 AM Ordered Studies 12/20/22 00:23 US gallbladder Stat Hospital Course (1) Acute pancreatitis: Recurrent pancreatitis Likely due to uncontrolled Triglyceridemia --Lipase 278 --Triglycerides 1753>1149>809 --Gall Bladder USD:No evidence of cholecystitis or cholelithiasis Normal lactate, calcium levels Does not meet SIRS criteria Likely doesn't need high Insulin drip for hypertriglyceridemia management Continue IV fluids, pain control Continue fenofibrate Advance diet as tolerated Appreciate GI input Consult to quit smoking Explained in detail importance of treating high triglycerides levels--patient up set about prolonged need for hospitalization Advised to follow up with cardiology/endocrinology/[facility] lipid clinic upon discharge for hypertriglyceridemia and DM management Monitor triglyceride levels Advised to obtain lipid panel in 1 week and follow up with PCP DM II--Uncontrolled HbA1C 12.2 Patient not taking Metformin due to side effects Currently not on any medications for diabetes management Offered to be started on Insulin--Patient refused, prefers to restart Metformin and discuss with PCP for further care Explained in detail risks and complications of uncontrolled DM II and hy pertriglyceridemia. Patient understands and prefers to follow with PCP Continue insulin while hospitalized Monitor BGs early childhood special educator consulted Hypomagnesemia Repleted electrolytes as needed Monitor H/O Tobacco use disorder Nicotine patch if needed H/O CAD S/P Stent Continue aspirin, Brilinta, metoprolol, statin Hypertension Continue lisinopril, metoprolol Monitor BP Hyperlipidemia on statin H/O Small intestinal bacterial overgrowth S/P antibiotic therapy Postsurgical hypothyroidism TSH 5.39 Continue levothyroxine Anxiety/mood disorder As per records DVT Px: Lovenox SQ Code Status Full code Total Time Total Time Spent Total Time Spent (In Minutes): 56 minutes Discharge Plan Discharge Items Patient Disposition: Home - Self-Care Reason For Visit: PANCREATITIS Discharge Diagnosis: Recurrent pancreatitis Hypertriglyceridemia Uncontrolled diabetes mellitus Hypomagnesemia Condition on Discharge: Fair Activity: Per Instructions section Exercise/Sports: Wait until after follow-up appointment Non-emergency contact: Primary Care Provider, Specialist, Doula and Director Of Employee Development Call non-emergency contact if: you have any medication questions, your symptoms worsen, your pain is concerning for you and you have a fever Follow-up/Referrals: Edwin Espinoza MD [Primary Care Provider] - Diet: Carb Consistent or DM2, Heart Healthy and Low Fat Addtl Attending Provider Instructions: --Follow-up with your primary care physician in 1 week --Follow-up with your service center technician and drainage design coordinator, [facility] lipid clinic for management of hypertriglyceridemia as advised --- Discuss with your primary care physician for further management of diabetes mellitus as advised --Avoid smoking tobacco as recommended by your office support associate. Seek immediate medical attention if your symptoms reoccur or worsen Please take all medications as instructed on discharge list below. Please call if you have any questions or problems. You can reach a [facility] hospitalist on duty at [facility] 24 hours a day by calling [phone] Pending Studies at Discharge: No Stand-Alone Forms: [facility] [employer], Smoking Cessation Medications and DC Order Prescriptions: New Mag 64 64 mg Tablet,Delayed Release (Dr/Ec) 64 mg PO BID Qty: 30 0RF Continued levothyroxine [Levoxyl] 125 mcg tablet 125 mcg PO QAM ursodiol 300 mg capsule 300 mg PO DAILY hydroxyzine pamoate [Vistaril] 25 mg capsule See Rx Instructions .ROUTE .COMPLEX PRN (Reason: Anxiety) Rx Instructions: take one and one-half tablet every 6 hours prn anxiety metformin 500 mg tablet extended release 24 hr 1,000 mg PO DAILY pantoprazole 40 mg tablet,delayed release (DR/EC) 20 mg PO DAILY fenofibrate nanocrystallized 145 mg tablet 145 mg PO DAILY Brilinta 90 mg Tablet 90 mg PO BID Qty: 60 1RF lisinopril [Zestril] 5 mg Tablet 5 mg PO QAM Qty: 30 1RF metoprolol tartrate 25 mg Tablet 12.5 mg PO BID Qty: 30 1RF atorvastatin 80 mg tablet 80 mg PO DAILY Qty: 30 1RF ondansetron 8 mg Tablet,Disintegrating 8 mg PO Q8H PRN (Reason: Nausea And Vomiting) aspirin 81 mg tablet,delayed release (DR/EC) 81 mg PO HS Discharge Orders: Discharge Order (Routine); Ordered 12/21/22 Ordered By: Bang Cruz Admission Data Admit Date/Time: 12/20/22 02:09 Attending Provider: Bang Cruz Admit Provider: Garrett Samuels Primary Care Provider: Edwin Espinoza Other Providers: Cr Carter ; Jaylon Macdonald ; Mora Ramirez ; Meli Helton ; Wendy Figueroa ; Tracie Lorenz ; Joselo Ramirez ; Lloyd Smart ; Mundo Bella ; Lawson Ko ; Qasim Ojeda ; Ela Lin ; Hiwot Lopez ; Jimena Hargrove ; Dulce Ulloa ; Lesa Hartman ; Alex Dickson ; Earnest Ag ; Hilda Estrada ; Nadine Teresa Jr ; Grarett Samuels
[2022-12-22] MEDS ORDERED: INSULIN ASPART PER UNIT CHARGE SC ONE (02:00)
[2022-12-22] MEDS ORDERED: MAGNESIUM CHLORIDE W/CALCIUM 64MG DELAYED REL TAB PO SCH (21:00)
== END 2022-12-21 16:14 | disposition home or self-care (01) | DRG 439 ==
LOC: ED 19:28 → 3W 12-20 02:09

== ENCOUNTER 2024-02-08 14:28 | Observation (INO) ==
--- OUTSIDE RECORDS SUMMARY | 2024-02-08 14:35 | External Medical Summary | Summary of Care ---
Author Name Unknown Organization [facility] Address [address] [place] [address] Phone [phone] Care Team Providers Care Industrial Radiographer Name Role Phone Shelly Black MD Primary Care Provider [phone] Reason for Visit * Reason Comments eRx-Medication Refill Encounter Details Date Type Department Care Team (Late st Contact Info) Description 01/20/2024 Refill Family Practice [facility] [address] [place] [address] Shelly Black MD [address] [place] [address] Allergies No known active allergiesdocumented as of this encounter (statuses as of 01/21/2024) Medications Medication Sig Dispensed Refills Start Date End Date Status Aspirin 81 MG Oral Tablet Delayed Release Take 1 Tablet by mouth in the morning. Active Ondansetron HCl 4 MG Oral Tablet (Zofran) Take 1 Tablet by mouth as needed. 02/23/20 21 Active Cholestyramine 4 GM Oral Packet (Questran) Take 1 Packet (4 g) by mouth daily. 90 Each 1 05/15/20 22 Active Additional Information Patient not taking.Reported on 05/14/2023 Ursodiol 300 MG Oral Capsule (Actigall)Indicati ons:Chronic RUQ pain Take 1 Capsule by mouth in the morning and 1 Capsule before bedtime. 60 Capsule 10/09/19 23 Active Ibuprofen 800 MG Oral Tablet (Motrin) Take 1 Tablet by mouth in the morning and 1 Tablet at noon and 1 Tablet before bedtime. with food for pain. 90 Tablet 3 11/05/19 23 Active Additional Information Patient taking differently:800 mg Oral TID(AM/NOON/HS),with food for pain as needed, Reported on 05/14/2023 Magnesium Chloride 64 MG Oral Tablet Delayed Release Take 2 Tablets by mouth in the morning. Active Pen [place] 32G X 6 MM Use as directed at bedtime. Use with lantus pen 90 Each 3 01/02/20 Active Lisinopril 5 MG Oral Tablet (Prinivil) Take 1 Tablet by mouth in the morning. 90 Tablet 3 05/01/20 23 Active Atorvastatin Calcium 80 MG Oral Tablet (Lipitor) Take 1 Tablet by mouth in the morning. 90 Tablet 3 05/04/20 23 Active Estradiol 0.1 MG/GM Vaginal Cream (Estrace)Indicatio ns:Vaginal irritation 0.5 g of cream intravaginally administered daily for 2 weeks, then reduce to twice weekly 42.5 g 3 05/18/20 Active Levothyroxine Sodium 125 MCG Oral Tablet (Levoxyl)Indicatio ns:Postsurgical hypothyroidism Take 1 Tablet by mouth in the morning. (at least 30 min prior to breakfast or other meds). 90 Tablet 3 06/10/19 24 Active Basaglar KwikPen 100 UNIT/ML Subcutaneous Solution Pen-injector (Insulin Glargine Solostar) inject 25 units subcutaneously at bedtime 9 mL 3 06/26/19 24 Active hydrOXYzine HCl 25 MG Oral TabletIndications: Anxiety TAKE 1 & 1/2 (ONE & ONE-HALF) TABLETS BY MOUTH EVERY 6 HOURS NEEDED FOR ANXIETY. 180 Tablet 1 09/15/19 24 Active Fenofibrate 145 MG Oral Tablet (Tricor) TAKE 1 TABLET BY MOUTH IN THE MORNING 90 Tablet 1 10/09/19 24 Active Pantoprazole Sodium 20 MG Oral Tablet Delayed Release (Protonix)Indicati ons:Gastroesophage al reflux disease without esophagitis Take 1 Tablet by mouth in the morning. 90 Tablet 1 11/06/19 24 Active Metoprolol Tartrate 25 MG Oral Tablet (Lopressor) Take 0.5 Tablets by mouth in the morning and 0.5 Tablets before bedtime. 180 Tablet 11/19/19 24 Active Ozempic (0.25 or 0.5 MG/DOSE) 2 MG/3ML Solution Pen-injector (Semaglutide(0.25 or 0.5MG/DOS)) Inject 0.5 mg under the skin once a week. 3 mL 01/08/20 Active Brilinta 90 MG Oral Tablet (Ticagrelor) Take 1 tablet by mouth twice daily 180 Tablet 01/21/20 24 Active Brilinta 90 MG Oral Tablet (Ticagrelor) Take 1 tablet by mouth twice daily 180 Tablet 10/23/19 24 024 Discontinued documented as of this encounter (statuses as of 01/21/2024) Active Problems Problem Noted Date Diagnosed Date Small intestinal bacterial overgrowth (SIBO) Biliary dyskinesia 12/15/2021 S/P drug eluting coronary stent placement 2021 SRIDEVI (generalized anxiety disorder) 03/05/2021 Old SC (myocardial infarction) 03/02/2021 Coronary artery disease invo lving [place] coronary artery of [place] heart without angina pectoris 03/02/2021 Acute recurrent pancreatitis 09/09/2020 Dyslipidemia 02/08/2019 Type 2 diabetes mellitus wit h hemoglobin A1c goal of less than 7.0% 02/08/2019 Postsurgical hypothyroidism 03/30/2015 Tobacco use disorder 06/12/2006 documented as of this encounter (statuses as of 01/21/2024) Resolved Problems Problem Noted Date Diagnosed Date Resolved Date S/P cardiac catheterization 09/18/2021 12/18/2021 Chronic diarrhea 03/05/2021 12/28/2022 Presence of drug-eluting power nt in right coronary artery 03/04/2021 12/18/2021 Hypertriglyceridemia 09/10/2020 022 Urinary frequency 06/30/2016 12/04/2016 Dysuria 06/30/2016 12/04/2016 Primary snoring 12/30/2012 02/08/2019 Overview: Negative PSG 12/08/12 for RADHA Chest pain 02/04/2012 12/04/2016 Equivocal stress echocardiogram 02/04/2012 12/04/2016 Family history of cardiovascular disease 01/26/2012 12/04/2016 Stress at work 12/01/2011 12/04/2016 Pruritic disorder 02/11/2011 12/11/2016 OBESITY, BMI= 30.73 02/11/11 02/11/2011 0 12/04/2016 SHOULDER s/p sublux open repair 09/22/2008 12/11/2016 Abnormal maternal glucose to lerance, complicating , childbirth, or the puerperium, unspecified as to episode of care 03/12/2007 12/04/2016 Family history of diabetes mellitus 03/12/2007 12/04/2016 ADVANCE DIRECTIVE INFORMATION 06/12/2006 02/08/2019 Overview: No, Advance Directive brochure given to patient. AC MAXILLARY SINUSITIS, LEFT 06/12/2006 12/04/2016 Chronic rhinitis 06/12/2006 12/04/2016 ACUTE URI NOS 06/12/2006 07/27/2008 Overview: Resolved per Benign Acute Dxs Protocol #3 DYSFUNCT EUSTACHIAN TUBE 06/12/2006 Mixed dyslipidemia 9 documented as of this encounter (statuses as of 01/21/2024) Immunizations Name Administration Dates Next Due TDAP (age 10 and older)(Boostrix) 11/02/2012 documented as of this encounter Social History Tobacco Use Types Packs/Day Years Used Date Smoking Tobacco: Every Day Cigarettes 0.5 20 Smokeless Tobacco: Never Alcohol Use Standard Drinks/Week Comments Not Currently 0 (1 standard drink = 0.6 oz pur e alcohol) PHQ-2 Answer Date Recorded PHQ Adult Total Score 0 12/18/2021 Hunger Vital Sign Answer Date Recorded Within the past 12 months, y ou worried that your food would run out before you got the money to buy more. Never true 09/11/19 21 Within the past 12 months, t he food you bought just didn't last and you didn't have money to get more. Never true 09/10/2020 Utilities Answer Date Recorded Do you have trouble paying y our heating, water, or electric bill? (Adult - for ages 18 years and over) Not on file 11/24/2023 Is your family able to pay t he heat, water, or electric bill? (Household - for ages 0-17 years) Not on file 11/24/2023 Does your family have access to good internet? (Household - for ages 0-17 years) Not on file 11/24/2023 Social Connections Answer Date Recorded How often do you feel lonely or isolated from those around you? (Adult - for ages 18 years and over) Not on file 11/24/2023 Sex and Gender Information Value Date Recorded Sex Assigned at Not on file Gender Identity Not on file Sexual Orientation Not on file Job Start Date Occupation Industry Not on file Not on file Not on file documented as of this encounter Miscellaneous Notes * Telephone Encounter - Shelly Black MD - 01/21/2024 6:52 PM EDTSigned Prescriptions: Disp Refills Brilinta 90 MG Oral Tablet (Ticagrelor) 180 Ta*0 Sig: Take 1 tablet by mouth twice daily Authorizing Provider: SHELLY BLACK * Telephone Encounter - Blas Rodriguez, sustainable development policy analyst - 01/21/2024 3:55 PM EDTPending Prescriptions: Disp Refills Brilinta 90 MG Oral Tablet 180 Ta*0 Sig: Take 1 tablet by mouth twice daily * Telephone Encounter - Blas Rodriguez sustainable development policy analyst - 01/21/2024 3:54 PM EDT Received message from [facility] regarding patient needing an appointment and labs. Call Placed, Left message on voicemail advising of required labs and to call back for an appointment. Thank you, Blas Rodriguez Stitch Bonding Machine Tender Helper [facility] 01/21/2024, 3:54 PM * Telephone Encounter - Laurita Ayon [facility] - 01/21/2024 3:16 PM EDTPending Prescriptions: Disp Refills Brilinta 90 MG Oral Tablet 180 Ta*0 Sig: Take 1 tablet by mouth twice daily * Telephone Encounter - Laurita Ayon RP - 01/21/2024 3:15 PM EDT Second attempt. Unable to authorize medication refills for pended medication(s) at this time. Part of the protocol criteria used for refill authorization was not satisfied. Per refill protocol patient should have routine labs on file within past year. Reviewed AMP report,Care Gaps/Health Maintenance, medications list, and for any routine labs typically ordered for thispatient. Lab orders placed. Please contact patient to schedule office visit with PRIMARY CARE and advise of labs ordered for blood draw AND URINE specimen (patient will have to be able to void to provide sample).. Recommend patient to fast if able for labs. Patient may still have water and regular medications. Advise to obtain labs before requesting the next refill. Last Visit: 05/14/2023 (in office), 08/28/2020 (telemedicine) Next Visit: Visit date not found After contacting patient, please forward request to Shelly Black MD. Thanks, Laurita Ayon Clinical Pharmacist [facility] [phone] 01/21/2024, 3:16 PM documented in this encounter Plan of Treatment Scheduled Procedures Name Priority Associated Diagnoses Date/Ti me COLONOSCOPY FLEXIBLE PROXIMAL DIAGNOSTIC Recall Intestinal metaplasia of stomach Chronic diarrhea ESOPHAGOGASTRODUODENOSCOPY ( EGD), FLEXIBLE, TRANSORAL, DIAGNOSTIC Recall Intestinal metaplasia of stomach Chronic diarrhea Health Maintenance Due Date Last Done Comments DISCUSS TOBACCO CESSATION (REFER TO SMARTSET #1474) 1970 Pneumococcal Vaccine: Pediatrics (0 to 5 Years) and At-Risk Patients (6 to 64 Years) (1 of 2 - PCV) 1976 HIV Screening 1985 Diabetic Foot Exam 1988 Hepatitis C Screening 1988 Hepatitis B Vaccine (1 of 3 - 19+ 3-dose series) 1989 Cologuard 09/04/2015 Colonoscopy 09/04/2015 Colorectal Cancer Screening 09/04/2015 Fecal Occult Blood Test 09/04/2015 Sigmoidoscopy 09/04/2015 Mammogram 01/22/2017 01/23/2016, 01/18/2016 Zoster Vaccines (1 of 2) 2020 DTaP,Tdap,and Td Vaccines (2 - Td or Tdap) 11/02/2022 11/02/2012 Depression Screening 12/18/2022 12/18/2021 HbA1c 07/25/2023 01/22/2023, 07/0 01/2022, 04/12/2021, Additional history exists Diabetic Eye Exam 08/21/2023 08/20/2022, 12/11/2020 Albumin/Creatinine Ratio 01/23/2024 01/22/2023 GFR 01/23/2024 01/22/2023, 07/2 10/2022, 12/13/2021, Additional history exists TSH 01/23/2024 01/22/2023, 07/0 07/2020, 03/27/2018, Additional history exists Influenza Vaccine (FLU shot) (#1) 2024 COVID-19 Vaccine Discontinued HPV (Gardasil) Vaccine Aged Out No lo nger eligible based on patient's age to complete this topic MENINGOCOCCAL (MENACTRA/MENVEO) Aged Out No longer eligible based on patient's age to complete this topic documented as of this encounter Medical Devices Not on filedocumented as of this encounter Advance Directives * Full Code (Latest Code Status on File) Date Activated Date Inactivated Comments 01/07/2013 10:34 AM 01/08/2013 1:37 PM This order re flects the patients wishes and were consensually agreed upon. Care Teams Industrial Radiographer Relationship Specialty Start Date End Date Shelly Black MD [address] [place] [address] PCP - General Family Medicine 08/28/20 documented as of this encounter
--- OUTSIDE RECORDS SUMMARY | 2024-02-08 14:35 | External Medical Summary | Summary of Care ---
Author Name Unknown Organization [facility] Address [address] [facility] [address] Phone [phone] Care Team Providers Care Grinding Machine Tender Name Role Phone Edwin Espinoza MD Primary Care Provider [phone] Encounter Details Date Type Department Care Team ([facility] st Contact Info) Description 01/13/2024 Orders Only PATIENT PORTAL DO NOT DELETE THIS DEPT USED BY [place] [id number] Allergies No known active allergiesdocumented as of this encounter (statuses as of 01/13/2024) Medications Medication Sig Dispensed Refills Start Date End Date Status Aspirin 81 MG Oral Tablet Delayed Release Take 1 Tablet by mouth in the morning. Active Ondansetron HCl 4 MG Oral Tablet (Zofran) Take 1 Tablet by mouth as needed. 02/22/2021 Active Cholestyramine 4 GM Oral Packet (Questran) Take 1 Packet (4 g) by mouth daily. 90 Each 1 05/15/2022 Active Additional Information Patient not taking.Reported on 05/14/2023 Ursodiol 300 MG Oral Capsule (Actigall)Indicatio ns:Chronic RUQ pain Take 1 Capsule by mouth in the morning and 1 Capsule before bedtime. 60 Capsule 10/08/2022 Active Ibuprofen 800 MG Oral Tablet (Motrin) Take 1 Tablet by mouth in the morning and 1 Tablet at noon and 1 Tablet before bedtime. with food for pain. 90 Tablet 3 11/04/2022 Active Additional Information Patient taking differently:800 mg Oral TID(AM/NOON/HS),with food for pain as needed, Reported on 05/14/2023 Magnesium Chloride 64 MG Oral Tablet Delayed Release Take 2 Tablets by mouth in the morning. Active Pen [place] 32G X 6 MM Use as directed at bedtime. Use with lantus pen 90 Each 3 01/01/2023 Active Lisinopril 5 MG Oral Tablet (Prinivil) Take 1 Tablet by mouth in the morning. 90 Tablet 3 05/01/2023 Active Atorvastatin Calcium 80 MG Oral Tablet (Lipitor) Take 1 Tablet by mouth in the morning. 90 Tablet 3 05/04/2023 Active Estradiol 0.1 MG/GM Vaginal Cream (Estrace)Indication s:Vaginal irritation 0.5 g of cream intravaginally administered daily for 2 weeks, then reduce to twice weekly 42.5 g 3 05/18/2023 Active Levothyroxine Sodium 125 MCG Oral Tablet (Levoxyl)Indication s:Postsurgical hypothyroidism Take 1 Tablet by mouth in the morning. (at least 30 min prior to breakfast or other meds). 90 Tablet 3 06/10/2023 Active Basaglar KwikPen 100 UNIT/ML Subcutaneous Solution Pen-injector (Insulin Glargine Solostar) inject 25 units subcutaneously at bedtime 9 mL 3 06/26/2023 Active hydrOXYzine HCl 25 MG Oral TabletIndications:A nxiety TAKE 1 & 1/2 (ONE & ONE-HALF) TABLETS BY MOUTH EVERY 6 HOURS NEEDED FOR ANXIETY. 180 Tablet 1 09/15/2023 Active Fenofibrate 145 MG Oral Tablet (Tricor) TAKE 1 TABLET BY MOUTH IN THE MORNING 90 Tablet 1 10/09/2023 Active Brilinta 90 MG Oral Tablet (Ticagrelor) Take 1 tablet by mouth twice daily 180 Tablet 10/23/2023 Active Pantoprazole Sodium 20 MG Oral Tablet Delayed Release (Protonix)Indicatio ns:Gastroesophageal reflux disease without esophagitis Take 1 Tablet by mouth in the morning. 90 Tablet 1 11/06/2023 Active Metoprolol Tartrate 25 MG Oral Tablet (Lopressor) Take 0.5 Tablets by mouth in the morning and 0.5 Tablets before bedtime. 180 Tablet 11/19/2023 Active Ozempic (0.25 or 0.5 MG/DOSE) 2 MG/3ML Solution Pen-injector (Semaglutide(0.25 or 0.5MG/DOS)) Inject 0.5 mg under the skin once a week. 3 mL 01/08/2024 Active documented as of this encounter (statuses as of 01/13/2024) Active Problems Problem Noted Date Diagnosed Date Small intestinal bacterial overgrowth (SIBO) Biliary dyskinesia 12/15/2021 S/P drug eluting coronary stent placement 2021 SRIDEVI (generalized anxiety disorder) 03/05/2021 Old [place] (myocardial infarction) 03/02/2021 Coronary artery disease invo lving [place] coronary artery of [place] heart without angina pectoris 03/02/2021 Acute recurrent pancreatitis 09/09/2020 Dyslipidemia 02/08/2019 Type 2 diabetes mellitus wit h hemoglobin A1c goal of less than 7.0% 02/08/2019 Postsurgical hypothyroidism 03/30/2015 Tobacco use disorder 06/12/2006 documented as of this encounter (statuses as of 01/13/2024) Resolved Problems Problem Noted Date Diagnosed Date [...] as of this encounter (statuses as of 01/13/2024) Immunizations Name Administration Dates Next Due TDAP [...] on file documented as of this encounter Plan of Treatment Scheduled Procedures Name Priority Associated Diagnoses Date/Ti me COLONOSCOPY FLEXIBLE PROXIMAL DIAGNOSTIC Recall Intestinal metaplasia of stomach Chronic diarrhea ESOPHAGOGASTRODUODENOSCOPY ( EGD), FLEXIBLE, TRANSORAL, DIAGNOSTIC Recall Intestinal metaplasia of stomach Chronic diarrhea Health Maintenance Due Date Last Done Comments DISCUSS TOBACCO CESSATION (REFER TO SMARTSET #3291) 1970 Pneumococcal Vaccine: Pediatrics (0 to 5 [...] and were consensually agreed upon. Care Teams Grinding Machine Tender Relationship Specialty Start Date End Date Edwin Espinoza MD [address] [place] [address] PCP - General Family Medicine 08/28/20 documented as of this encounter
--- OUTSIDE RECORDS SUMMARY | 2024-02-08 14:35 | External Medical Summary | Summary of Care ---
Author Name Unknown Organization [facility] Address [address] [place] [address] Phone [phone] Care Team Providers Care Highway Technician Name Role Phone Shelly Black MD Primary Care Provider [phone] [phone] Reason for Visit * Reason Onset Date Comments Medication Refill 11/05/2023 Encounter Details Date Type Department Care Team (Late st Contact Info) Description 11/05/2023 Refill Family Practice [facility] [address] [facility] [place] [address] Shelly Black MD [address] [facility] [place] [address] Gastroesophageal reflux disease without esophagitis Allergies No known active allergiesdocumented as of this encounter (statuses as of 11/06/2023) Medications Medication Sig Dispensed Refills Start Date End Date Status Aspirin 81 MG Oral Tablet Delayed Release Take 1 Tablet by mouth in the morning. Active Ondansetron HCl 4 MG Oral Tablet (Zofran) Take 1 Tablet by mouth as needed. 1 Active Cholestyramine 4 GM Oral Packet (Questran) Take 1 Packet (4 g) by mouth daily. 90 Each 1 2 Active Additional Information Patient not taking.Reported on 05/14/2023 Ursodiol 300 MG Oral Capsule (Actigall)Indicatio ns:Chronic RUQ pain Take 1 Capsule by mouth in the morning and 1 Capsule before bedtime. 60 Capsule 3 Active Ibuprofen 800 MG Oral Tablet (Motrin) Take 1 Tablet by mouth in the morning and 1 Tablet at noon and 1 Tablet before bedtime. with food for pain. 90 Tablet 3 3 Active Additional Information Patient taking differently:800 mg Oral TID(AM/NOON/HS),with food for pain as needed, Reported on 05/14/2023 Magnesium Chloride 64 MG Oral Tablet Delayed Release Take 2 Tablets by mouth in the morning. Active Pen [place] 32G X 6 MM Use as directed at bedtime. Use with lantus pen 90 Each 3 3 Active Lisinopril 5 MG Oral Tablet (Prinivil) Take 1 Tablet by mouth in the morning. 90 Tablet 3 3 Active Atorvastatin Calcium 80 MG Oral Tablet (Lipitor) Take 1 Tablet by mouth in the morning. 90 Tablet 3 3 Active Estradiol 0.1 MG/GM Vaginal Cream (Estrace)Indication s:Vaginal irritation 0.5 g of cream intravaginally administered daily for 2 weeks, then reduce to twice weekly 42.5 g 3 3 Active Metoprolol Tartrate 25 MG Oral Tablet (Lopressor) Take 0.5 Tablets by mouth in the morning and 0.5 Tablets before bedtime. 180 Tablet 3 Active Levothyroxine Sodium 125 MCG Oral Tablet (Levoxyl)Indication s:Postsurgical hypothyroidism Take 1 Tablet by mouth in the morning. (at least 30 min prior to breakfast or other meds). 90 Tablet 3 4 Active Basaglar KwikPen 100 UNIT/ML Subcutaneous Solution Pen-injector (Insulin Glargine Solostar) inject 25 units subcutaneously at bedtime 9 mL 3 4 Active hydrOXYzine HCl 25 MG Oral TabletIndications:A nxiety TAKE 1 & 1/2 (ONE & ONE-HALF) TABLETS BY MOUTH EVERY 6 HOURS NEEDED FOR ANXIETY. 180 Tablet 1 4 Active Ozempic (0.25 or 0.5 MG/DOSE) 2 MG/1.5ML Solution Pen-injector (Semaglutide(0.25 or 0.5MG/DOS))Indicati ons:Type 2 diabetes mellitus with hemoglobin A1c goal of less than 7.0% ([facility]) Inject 0.25 mg under the skin once a week for 30 days, THEN 0.5 mg once a week. 2.3 mL 3 4 11/14/19 24 Active Fenofibrate 145 MG Oral Tablet (Tricor) TAKE 1 TABLET BY MOUTH IN THE MORNING 90 Tablet 1 4 Active Brilinta 90 MG Oral Tablet (Ticagrelor) Take 1 tablet by mouth twice daily 180 Tablet 4 Active Pantoprazole Sodium 20 MG Oral Tablet Delayed Release (Protonix)Indicatio ns:Gastroesophageal reflux disease without esophagitis Take 1 Tablet by mouth in the morning. 90 Tablet 1 4 Active Pantoprazole Sodium 20 MG Oral Tablet Delayed Release (Protonix)Indicatio ns:Gastroesophageal reflux disease without esophagitis TAKE 1 TABLET BY MOUTH IN THE MORNING 30 MINUTES BEFORE FIRST MEAL OF THE DAY. DO NOT CUT, CRUSH, OR CHEW 90 Tablet 1 3 11/05/19 24 Discontinu ed(Refill) documented as of this encounter (statuses as of 11/06/2023) Active Problems Problem Noted Date Diagnosed Date Small intestinal bacterial overgrowth (SIBO) Biliary dyskinesia 12/15/2021 S/P drug eluting coronary stent placement 2021 SRIDEVI (generalized anxiety disorder) 03/05/2021 [place] (myocardial infarction) 03/02/2021 Coronary artery disease invo lving [place] coronary artery of [place] heart without angina pectoris 03/02/2021 Acute recurrent pancreatitis 09/09/2020 Dyslipidemia 02/08/2019 Type 2 diabetes mellitus wit h hemoglobin A1c goal of less than 7.0% 02/08/2019 Postsurgical hypothyroidism 03/30/2015 Tobacco use disorder 06/12/2006 documented as of this encounter (statuses as of 11/06/2023) Resolved Problems Problem Noted Date Diagnosed Date [...] as of this encounter (statuses as of 11/06/2023) Immunizations Name Administration Dates Next Due TDAP [...] money to get more. Never true 09/10/2020 Sex and Gender Information Value Date Recorded Sex Assigned at Not on file Gender Identity Not on file Sexual Orientation Not on file Job Start Date Occupation Industry Not on file Not on file Not on file documented as of this encounter Miscellaneous Notes * Telephone Encounter - Shelly Black MD - 11/06/2023 9:21 AM EDTSigned Prescriptions: Disp Refills Pantoprazole Sodium 20 MG Oral Tablet Miriam*90 Tab*1 Sig: Take 1 Tablet by mouth in the morning. Authorizing Provider: SHELLY BLACK * Telephone Encounter - Maria T Hoyt LPN - 11/06/2023 9:19 AM EDTPending Prescriptions: Disp Refills Pantoprazole Sodium 20 MG Oral Tablet Miriam*90 Tab*1 * Telephone Encounter - Cat Beck OSA - 11/05/2023 2:48 PM EDT Did you pend patient's preferred pharmacy and medication before forwarding?yes Pharmacy: [facility] [id number] [place] Pending Prescriptions: Disp Refills Pantoprazole Sodium 20 MG Oral Tablet Del*90 Tab*1 Last Visit: 05/14/2023 (in office), 08/28/2020 (telemedicine) Next Visit: Visit date not found If no future appointments scheduled, and last appointment is greater than a year ago, please schedule patient for a follow-up appointment Last date the medication was ordered: 04.27.23 Is this request for a controlled substance?No Urine Drug Screen:No results found for this or any previous visit. Patient Phone Numbers Labs: Lab Results Component Value Date/Time CREAT 0.9 01/22/2023 07:30 AM CREAT 0.8 02/02/2019 12:00 AM CREAT 0.7 03/20/2015 11:59 AM POTASSIUM 4.9 01/22/2023 07:30 AM POTASSIUM 3.7 02/02/2019 12:00 AM POTASSIUM 4.3 03/20/2015 11:59 AM TSH 4.76 (H) 01/22/2023 07:30 AM TSH 0.779 03/27/2018 12:00 AM TSH 0.91 02/19/2017 07:31 AM LDLCALC 09/29/2018 12:00 AM Comment: CANNOT BE CALCULATED WHEN TRIG IS GREATER THAN 400. LDLCALC 38 04/26/2016 08:47 AM LDLDIRECT 68 01/22/2023 07:30 AM LDLDIRECT 110 01/26/2012 01:55 PM ALT 32 01/22/2023 07:30 AM ALT 74 09/17/2018 12:00 AM ALT 61 (H) 04/26/2016 08:47 AM HGBA1C 10.5 (H) 01/22/2023 07:30 AM HGBA1C 9.2 (A) 09/17/2018 12:00 AM HGBA1C 5.6 08/10/2007 08:20 AM documented in this encounter Plan of Treatment Scheduled Procedures Name Priority Associated Diagnoses Date/Ti me COLONOSCOPY FLEXIBLE PROXIMAL DIAGNOSTIC Recall Intestinal metaplasia of stomach Chronic diarrhea ESOPHAGOGASTRODUODENOSCOPY ( EGD), FLEXIBLE, TRANSORAL, DIAGNOSTIC Recall Intestinal metaplasia of stomach Chronic diarrhea Health Maintenance Due Date Last Done Comments DISCUSS TOBACCO CESSATION (REFER TO SMARTSET #5141) 1970 Pneumococcal Vaccine: Pediatrics (0 to 5 Years) and At-Risk Patients (6 to 64 Years) (1 of 2 - PCV) 1976 HIV Screening 1985 Diabetic Foot Exam 1988 Hepatitis C Screening 1988 Hepatitis B (1 of 3 - 19+ 3-dose series) [...] Albumin/Creatinine Ratio 01/23/2024 01/22/2023 GFR 01/23/2024 01/22/2023, 072 10/2022, 12/13/2021, Additional history exists TSH 01/23/2024 01/22/2023, 07/0 07/2020, 03/27/2018, Additional history exists Influenza Vaccine (FLU shot) (Season Ended) 2024 COVID-19 Vaccine Discontinued GARDASIL-HPV IMMUNIZATION SERIES Aged Out No longer eligible based on patient's age to complete this topic MENINGOCOCCAL (MENACTRA/MENVEO) Aged Out No longer eligible based on patient's age to complete this topic documented as of this encounter Medical Devices Not on filedocumented as of this encounter Visit Diagnoses Diagnosis Gastroesophageal reflux disease without esophagitis Esophageal reflux documented in this encounter Advance Directives * Full Code (Latest Code Status on File) Date Activated Date Inactivated Comments 01/07/2013 10:34 AM 01/08/2013 1:37 PM This order re flects the patients wishes and were consensually agreed upon. Care Teams Highway Technician Relationship Specialty Start Date End Date Shelly Black MD [address] [place] [address] PCP - General Family Medicine 08/28/20 documented as of this encounter
--- OUTSIDE RECORDS SUMMARY | 2024-02-08 14:35 | External Medical Summary | Summary of Care ---
Author Name Unknown Organization [facility] Address [address] [place] [address] Phone [phone] Care Team Providers Care Orange Grower Name Role Phone Shelly Black MD Primary Care Provider [phone] Reason for Visit * Reason Comments eRx-Medication Refill Encounter Details Date Type Department Care Team (Late st Contact Info) Description 10/22/2023 Refill Family Practice [facility] [address] [place] [address] Shelly Black MD [address] [place] [address] Allergies No known active allergiesdocumented as of this encounter (statuses as of 10/23/2023) Medications Medication Sig Dispensed Refills Start Date End Date Status Aspirin 81 MG Oral Tablet Delayed Release Take 1 Tablet by mouth in the morning. 0 Active Ondansetron HCl 4 MG Oral Tablet (Zofran) Take 1 Tablet by mouth as needed. 0 02/23/20 21 Active Cholestyramine 4 GM Oral Packet (Questran) Take 1 Packet (4 g) by mouth daily. 90 Each 1 05/15/20 22 Active Additional Information Patient not taking.Reported on 05/14/2023 Ursodiol 300 MG Oral Capsule (Actigall)Indicati ons:Chronic RUQ pain Take 1 Capsule by mouth in the morning and 1 Capsule before bedtime. 60 Capsule 0 10/09/19 23 Active Ibuprofen 800 MG Oral [...] 2 Tablets by mouth in the morning. 0 Active Pen [place] 32G X 6 MM Use as directed at bedtime. Use with lantus pen 90 Each 3 01/02/20 Active Pantoprazole Sodium 20 MG Oral Tablet Delayed Release (Protonix)Indicati ons:Gastroesophage al reflux disease without esophagitis TAKE 1 TABLET BY MOUTH IN THE MORNING 30 MINUTES BEFORE FIRST MEAL OF THE DAY. DO NOT CUT, CRUSH, OR CHEW 90 Tablet 1 04/27/20 23 Active Lisinopril 5 MG Oral Tablet (Prinivil) [...] twice weekly 42.5 g 3 05/18/20 Active Metoprolol Tartrate 25 MG Oral Tablet (Lopressor) Take 0.5 Tablets by mouth in the morning and 0.5 Tablets before bedtime. 180 Tablet 0 05/22/20 23 Active Levothyroxine Sodium 125 MCG Oral Tablet [...] ANXIETY. 180 Tablet 1 09/15/19 24 Active Ozempic (0.25 or 0.5 MG/DOSE) 2 MG/1.5ML Solution Pen-injector (Semaglutide(0.25 or 0.5MG/DOS))Indicat ions:Type 2 diabetes mellitus with hemoglobin A1c goal of less than 7.0% ([facility]) Inject 0.25 mg under the skin once a week for 30 days, THEN 0.5 mg once a week. 2.3 mL 3 09/15/19 24 024 Active Fenofibrate 145 MG Oral Tablet (Tricor) TAKE 1 TABLET BY MOUTH IN THE MORNING 90 Tablet 1 10/09/19 24 Active Brilinta 90 MG Oral Tablet (Ticagrelor) Take 1 tablet by mouth twice daily 180 Tablet 0 10/23/19 24 Active Ticagrelor 90 MG Oral Tablet (Brilinta) Take 1 Tablet by mouth in the morning and 1 Tablet before bedtime. 180 Tablet 3 11/05/19 23 024 Discontinued documented as of this encounter (statuses as of 10/23/2023) Active Problems Problem Noted Date Diagnosed Date Small intestinal bacterial overgrowth (SIBO) Biliary dyskinesia 12/15/2021 S/P drug eluting coronary stent placement 2021 SRIDEVI (generalized anxiety disorder) 03/05/2021 [place] (myocardial infarction) 03/02/2021 Coronary artery disease invo lving [place] coronary artery of [place] heart without angina pectoris 03/02/2021 Acute recurrent pancreatitis 09/09/2020 Dyslipidemia 02/08/2019 Type 2 diabetes mellitus wit h hemoglobin A1c goal of less than 7.0% 02/08/2019 Postsurgical hypothyroidism 03/30/2015 Tobacco use disorder 06/12/2006 documented as of this encounter (statuses as of 10/23/2023) Resolved Problems Problem Noted Date Diagnosed Date [...] as of this encounter (statuses as of 10/23/2023) Immunizations Name Administration Dates Next Due TDAP [...] encounter Miscellaneous Notes * Telephone Encounter - Molly Mendez [facility] - 10/23/2023 8:31 AM EDTSigned Prescriptions: Disp Refills Brilinta 90 MG Oral Tablet (Ticagrelor) 180 Ta*0 Sig: Take 1 tablet by mouth twice dailyAuthorizing Provider: SHELLY BLACK User: MOLLY MENDEZ- documented in this encounter Plan of Treatment Scheduled Procedures Name Priority Associated Diagnoses Date/Ti me COLONOSCOPY FLEXIBLE PROXIMAL DIAGNOSTIC Recall Intestinal metaplasia of stomach Chronic diarrhea ESOPHAGOGASTRODUODENOSCOPY ( EGD), FLEXIBLE, TRANSORAL, DIAGNOSTIC Recall Intestinal metaplasia of stomach Chronic diarrhea Health Maintenance Due Date Last Done Comments DISCUSS TOBACCO CESSATION (REFER TO SMARTSET #4780) 1970 Pneumococcal Vaccine: Pediatrics (0 to 5 [...] Albumin/Creatinine Ratio 01/23/2024 01/22/2023 GFR 01/23/2024 01/22/2023, 12/07, 12/13/2021, Additional history exists TSH 01/23/2024 01/22/2023, [...] filedocumented as of this encounter Advance Directives Latest Code Status on File Code Status Date Activated Date Inactivated Comments Full Code 01/07/2013 10:34 AM 01/08/2013 1:37 PM This o rder reflects the patients wishes and were consensually agreed upon. Care Teams Orange Grower Relationship Specialty Start Date End Date Shelly Black MD [address] [place] [address] PCP - General Family Medicine 08/28/20 documented as of this encounter
--- OUTSIDE RECORDS SUMMARY | 2024-02-08 14:35 | External Medical Summary | Summary of Care ---
Author Name Unknown Organization [facility] Address [address] [place] [address] Phone [phone] Care Team Providers Care Manager Health Name Role Phone Shelly Black MD Primary Care Provider [phone] Reason for Visit * Reason Comments eRx-Medication Refill Encounter Details Date Type Department Care Team (Late st Contact Info) Description 01/07/2024 Refill Family Practice [facility] [address] [place] [address] Shelly Black MD [address] [place] [address] Type 2 diabetes mellitus with hemoglobin A1c goal of less than 7.0% ([facility])*; Postsurgical hypothyroidism; Encounter for long-term (current) use of medications Allergies No known active allergiesdocumented as of this encounter (statuses as of 01/12/2024) Medications Medication Sig Dispensed Refills Start Date [...] by mouth in the morning. Active Pen [place] 32G X 6 MM Use as directed [...] as of this encounter (statuses as of 01/12/2024) Active Problems Problem Noted Date Diagnosed Date Small intestinal bacterial overgrowth (SIBO) Biliary dyskinesia 12/15/2021 S/P drug eluting coronary stent placement 2021 SRIDEVI (generalized anxiety disorder) 03/05/2021 Old [place] (myocardial infarction) 03/02/2021 Coronary artery disease invo lving [place] coronary artery of [place] heart without angina pectoris 03/02/2021 Acute recurrent pancreatitis 09/09/2020 Dyslipidemia 02/08/2019 Type 2 diabetes mellitus wit h hemoglobin A1c goal of less than 7.0% 02/08/2019 Postsurgical hypothyroidism 03/30/2015 Tobacco use disorder 06/12/2006 documented as of this encounter (statuses as of 01/12/2024) Resolved Problems Problem Noted Date Diagnosed Date [...] as of this encounter (statuses as of 01/12/2024) Immunizations Name Administration Dates Next Due TDAP [...] encounter Miscellaneous Notes * Telephone Encounter - Jean-Paul Bartholomew - 01/12/2024 3:01 PM EDT Received message from [facility] regarding patient needing an appointment and labs. Patient was notified. Successfully contacted patient and provided [facility] message. * Telephone Encounter - Lala Marley [facility] - 01/08/2024 5:51 AM EDTSigned Prescriptions: Disp Refills Ozempic (0.25 or 0.5 MG/DOSE) 2 MG/3ML [place]*3 mL 0 Sig: Inject 0.5 mg under the skin once a week. Authorizing Provider: SHELLY BLACK Ordering User: LALA MARLEY * Telephone Encounter - Lala Marley [facility] - 01/08/2024 5:49 AM EDT Provided 30 days supply with 0 refill. Per refill protocol patient should have routine on file within past year. Reviewed AMP report, Care Gaps/Health Maintenance, medications list, and for any routine labs typically ordered for this patient. Lab orders placed. Please contact patient to schedule office visit with PRIMARY CARE and advise of labs ordered for blood draw AND URINE specimen (patient will have to be able to void to provide sample). Recommend patient to fast if able for labs. Patient may still have water and regular medications. Advise to obtainlabs before requesting the next refill. Last Visit: 05/14/2023 (in office), 08/28/2020 (telemedicine) Next Visit: Visit date not found Thank you, Lala Marley, PharmD. Clinical Pharmacist [facility] 01/08/2024, 5:51 AM documented in this encounter Plan of Treatment Scheduled Orders Name Type Priority Associated Diagnoses Orde r Schedule COMPREHENSIVE METABOLIC PANEL Lab Routine Type 2 diabetes mellitus with hemoglobin A1c goal of less than 7.0% (HCC) Expected: 01/08/2024 (Approximate), Expires: 01/07/2025 HEMOGLOBIN A1C Lab Routine Type 2 diabetes mellitus with hemoglobin A1c goal of less than 7.0% (HCC) Expected: 01/08/2024 (Approximate), Expires: 01/07/2025 LIPID PANEL WITH DIRECT LDL IF TG IS HIGH Lab Routine Type 2 diabetes mellitus with hemoglobin A1c goal of less than 7.0% (HCC) Expected: 01/08/2024 (Approximate), Expires: 01/07/2025 TSH WITH FREE T4 IF INDICATED Lab Routine Postsurgical hypothyroidism Expected: 01/08/2024 (Approximate), Expires: 01/07/2025 CBC Lab Routine Encounter for long-term (current) use of medications Expected: 01/08/2024 (Approximate), Expires: 01/07/2025 ALBUMIN / CREATININE RATIO, URINE Lab Routine Type 2 diabetes mellitus with hemoglobin A1c goal of less than 7.0% (HCC) Expected: 01/08/2024, Expires: 01/07/2025 Scheduled Procedures Name Priority Associated Diagnoses Date/Ti me COLONOSCOPY FLEXIBLE PROXIMAL DIAGNOSTIC Recall Intestinal metaplasia of stomach Chronic diarrhea ESOPHAGOGASTRODUODENOSCOPY ( EGD), FLEXIBLE, TRANSORAL, DIAGNOSTIC Recall Intestinal metaplasia of stomach Chronic diarrhea Health Maintenance Due Date Last Done Comments DISCUSS TOBACCO CESSATION (REFER TO SMARTSET #4181) 1970 Pneumococcal Vaccine: Pediatrics (0 to 5 [...] as of this encounter Visit Diagnoses Diagnosis Type 2 diabetes mellitus with hemoglobin A1c goal of less than 7.0% ([facility])- Primary Postsurgical hypothyroidism Encounter for long-term (current) use of medications Encounter for long-term (current) use of other medications documented in this encounter Advance Directives * Full Code (Latest Code Status on File) Date Activated Date Inactivated Comments 01/07/2013 10:34 AM 01/08/2013 1:37 PM This order re flects the patients wishes and were consensually agreed upon. Care Teams Manager Health Relationship Specialty Start Date End Date Shelly Black MD [address] [place] [address] PCP - General Family Medicine 08/28/20 documented as of this encounter
--- OUTSIDE RECORDS SUMMARY | 2024-02-08 14:36 | External Medical Summary | Summary of Care ---
Author Name Unknown Organization [facility] Address [address] [place] [address] Phone [phone] Care Team Providers Care Hand Ornament Maker Name Role Phone Shelly Black MD Primary Care Provider [phone] Reason for Visit * Reason Comments eRx-Medication Refill Encounter Details Date Type Department Care Team (Late st Contact Info) Description 09/14/2023 Refill Family Practice [facility] [address] [place] [address] Shelly Black MD [address] [place] [address] Anxiety Allergies No known active allergiesdocumented as of this encounter (statuses as of 09/15/2023) Medications Medication Sig Dispensed Refills Start Date [...] bedtime. 60 Capsule 0 10/09/19 23 Active Fenofibrate 145 MG Oral Tablet (Tricor) Take 1 Tablet by mouth in the morning. 90 Tablet 3 10/09/19 23 Active Ticagrelor 90 MG Oral Tablet (Brilinta) Take 1 Tablet by mouth in the morning and 1 Tablet before bedtime. 180 Tablet 3 11/05/19 Active Ibuprofen 800 MG Oral Tablet (Motrin) [...] mouth in the morning. 0 Active Pen [place] 32G X 6 MM Use as directed at bedtime. Use with lantus pen 90 Each 3 01/02/20 23 Active Pantoprazole Sodium 20 MG Oral Tablet [...] ANXIETY. 180 Tablet 1 09/15/19 24 Active hydrOXYzine HCl 25 MG Oral TabletIndications: Anxiety TAKE 1 & 1/2 (ONE & ONE-HALF) TABLETS BY MOUTH EVERY 6 HOURS NEEDED FOR ANXIETY 180 Tablet 1 07/21/19 24 024 Discontinued documented as of this encounter (statuses as of 09/15/2023) Active Problems Problem Noted Date Diagnosed Date Small intestinal bacterial overgrowth (SIBO) Biliary dyskinesia 12/15/2021 S/P drug eluting coronary stent placement 2021 SRIDEVI (generalized anxiety disorder) 03/05/2021 [place] (myocardial infarction) 03/02/2021 Coronary artery disease invo lving [place] coronary artery of [place] heart without angina pectoris 03/02/2021 Acute recurrent pancreatitis 09/09/2020 Dyslipidemia 02/08/2019 Type 2 diabetes mellitus wit h hemoglobin A1c goal of less than 7.0% 02/08/2019 Postsurgical hypothyroidism 03/30/2015 Tobacco use disorder 06/12/2006 documented as of this encounter (statuses as of 09/15/2023) Resolved Problems Problem Noted Date Diagnosed Date [...] as of this encounter (statuses as of 09/15/2023) Immunizations Name Administration Dates Next Due TDAP [...] Telephone Encounter - Shelly Black MD - 09/15/2023 5:39 PM EDTSigned Prescriptions: Disp Refills hydrOXYzine HCl 25 MG Oral Tablet 180 Ta*1 Sig: TAKE 1 & 1/2 (ONE & ONE-HALF) TABLETS BY MOUTH EVERY 6 HOURS NEEDED FOR ANXIETY. Authorizing Provider: SHELLY BLACK * Telephone Encounter - Laurita Ayon [facility] - 09/15/2023 2:49 PM EDTPending Prescriptions: Disp Refills hydrOXYzine HCl 25 MG Oral Tablet 180 Ta*1 Sig: TAKE 1 & 1/2 (ONE & ONE-HALF) TABLETS BY MOUTH EVERY 6 HOURS NEEDED FOR ANXIETY. * Telephone Encounter - Laurita Ayon [facility] - 09/15/2023 2:48 PM EDT Did you pend patient's preferred pharmacy and medication before forwarding?yes Pharmacy: [facility] Pending Prescriptions: Disp Refills hydrOXYzine HCl 25 MG Oral Tablet 180 Ta*1 Sig: TAKE 1 & 1/2 (ONE & ONE-HALF) TABLETS BY MOUTH EVERY 6 HOURS NEEDED FOR ANXIETY. Last Visit: 05/14/2023 (in office), 08/28/2020 (telemedicine) Next Visit: Visit date not found If no future appointments scheduled, and last appointment is greater than a year ago, please schedule patient for a follow-up appointment Last date the medication was ordered: 07/21/23 Is this request for a controlled substance?No [...] Comments DISCUSS TOBACCO CESSATION (REFER TO SMARTSET #3217) 1970 Pneumococcal Vaccine: Pediatrics (0 to 5 [...] as of this encounter Visit Diagnoses Diagnosis Anxiety Anxiety state, unspecified documented in this encounter Advance Directives Latest Code Status on File Code Status Date Activated Date Inactivated Comments Full Code 01/07/2013 10:34 AM 01/08/2013 1:37 PM This o rder reflects the patients wishes and were consensually agreed upon. Care Teams Hand Ornament Maker Relationship Specialty Start Date End Date Shelly Black MD [address] [facility] [place] [address] PCP - General Family Medicine 08/28/20 documented as of this encounter
--- OUTSIDE RECORDS SUMMARY | 2024-02-08 14:36 | External Medical Summary | Summary of Care ---
Author Name Unknown Organization [facility] Address [address] [place] [address] Phone [phone] Care Team Providers Care Civil Engineering Intern Name Role Phone Shelly Black MD Primary Care Provider [phone] Reason for Visit * Reason Comments eRx-Medication Refill Encounter Details Date Type Department Care Team (Late st Contact Info) Description 10/08/2023 Refill Family Practice [facility] [address] [place] [address] Shelly Black MD [address] [place] [address] Allergies No known active allergiesdocumented as of this encounter (statuses as of 10/09/2023) Medications Medication Sig Dispensed Refills Start Date [...] bedtime. 60 Capsule 0 10/09/19 23 Active Ticagrelor 90 MG Oral Tablet (Brilinta) Take 1 Tablet by mouth in the morning and 1 Tablet before bedtime. 180 Tablet 3 11/05/19 23 Active Ibuprofen 800 MG Oral Tablet (Motrin) Take 1 Tablet by mouth in the morning and 1 Tablet at noon and 1 Tablet before bedtime. with food for pain. 90 Tablet 3 11/05/19 Active Additional Information Patient taking differently:800 mg Oral TID(AM/NOON/HS),with food for pain as needed, Reported on 05/14/2023 Magnesium Chloride 64 MG Oral Tablet Delayed Release Take 2 Tablets by mouth in the morning. 0 Active Pen [place] 32G X 6 MM Use as directed at bedtime. Use with lantus pen 90 Each 3 01/02/20 Active Pantoprazole Sodium 20 MG Oral Tablet Delayed Release (Protonix)Indicati ons:Gastroesophage al reflux disease without esophagitis TAKE 1 TABLET BY MOUTH IN THE MORNING 30 MINUTES BEFORE FIRST MEAL OF THE DAY. DO NOT CUT, CRUSH, OR CHEW 90 Tablet 1 04/27/20 Active Lisinopril 5 MG Oral Tablet (Prinivil) [...] hemoglobin A1c goal of less than 7.0% ([facility]) Inject 0.25 mg under the skin once a week for 30 days, THEN 0.5 mg once a week. 2.3 mL 3 09/15/19 24 024 Active Fenofibrate 145 MG Oral Tablet (Tricor) TAKE 1 TABLET BY MOUTH IN THE MORNING 90 Tablet 1 10/09/19 24 Active Fenofibrate 145 MG Oral Tablet (Tricor) Take 1 Tablet by mouth in the morning. 90 Tablet 3 10/09/19 23 024 Discontinued documented as of this encounter (statuses as of 10/09/2023) Active Problems Problem Noted Date Diagnosed Date Small intestinal bacterial overgrowth (SIBO) Biliary dyskinesia 12/15/2021 S/P drug eluting coronary stent placement 2021 SRIDEVI (generalized anxiety disorder) 03/05/2021 Old [place] (myocardial infarction) 03/02/2021 Coronary artery disease invo lving [place] coronary artery of [place] heart without angina pectoris 03/02/2021 Acute recurrent pancreatitis 09/09/2020 Dyslipidemia 02/08/2019 Type 2 diabetes mellitus wit h hemoglobin A1c goal of less than 7.0% 02/08/2019 Postsurgical hypothyroidism 03/30/2015 Tobacco use disorder 06/12/2006 documented as of this encounter (statuses as of 10/09/2023) Resolved Problems Problem Noted Date Diagnosed Date [...] as of this encounter (statuses as of 10/09/2023) Immunizations Name Administration Dates Next Due TDAP [...] encounter Miscellaneous Notes * Telephone Encounter - Stephany Blum [facility] - 10/09/2023 7:47 AM EDTSigned Prescriptions: Disp Refills Fenofibrate 145 MG Oral Tablet (Tricor) 90 Tab*1 Sig: TAKE 1 TABLET BY MOUTH IN THE MORNINGAuthorizing Provider: SHELLY BLACK User: CHRIS BLUM N documented in this encounter Plan of Treatment Scheduled Procedures Name Priority Associated Diagnoses Date/Ti me COLONOSCOPY FLEXIBLE PROXIMAL DIAGNOSTIC Recall Intestinal metaplasia of stomach Chronic diarrhea ESOPHAGOGASTRODUODENOSCOPY ( EGD), FLEXIBLE, TRANSORAL, DIAGNOSTIC Recall Intestinal metaplasia of stomach Chronic diarrhea Health Maintenance Due Date Last Done Comments DISCUSS TOBACCO CESSATION (REFER TO SMARTSET #2203) 1970 Pneumococcal Vaccine: Pediatrics (0 to 5 [...] Albumin/Creatinine Ratio 01/23/2024 01/22/2023 GFR 01/23/2024 01/22/2023, 2 10/2022, 12/13/2021, Additional history exists TSH 01/23/2024 [...] and were consensually agreed upon. Care Teams Civil Engineering Intern Relationship Specialty Start Date End Date Shelly Black MD [address] [facility] [place] [address] PCP - General Family Medicine 08/28/20 documented as of this encounter
--- OUTSIDE RECORDS SUMMARY | 2024-02-08 14:36 | External Medical Summary | Summary of Care ---
Author Name Unknown Organization [facility] Address [address] [place] [address] Phone [phone] Care Team Providers Care Gum Scoring Machine Operator Name Role Phone Edwin Espinoza MD Primary Care Provider [phone] Encounter Details Date Type Department Care Team ([facility] st Contact Info) Description 06/23/2023 Telephone OR [facility], Operating Room [facility] [address] [facility] [place] [address] Dulce Ulloa MD [address] [place], [place] [address] [address] Allergies No known active allergiesdocumented as of this encounter (statuses as of 09/22/2023) Medications Medication Sig Dispensed Refills Start Date [...] mouth in the morning. 0 Active Pen [place] 32G X 6 MM Use as directed [...] meds). 90 Tablet 3 06/10/19 24 Active Insulin Glargine Solostar 100 UNIT/ML Subcutaneous Solution Pen-injector (Lantus SoloStar) Inject 25 Units under the skin at bedtime. 3 Each 3 01/15/20 23 024 Discontinued hydrOXYzine HCl 25 MG Oral TabletIndications: Anxiety TAKE 1 & 1/2 (ONE & ONE-HALF) TABLETS BY MOUTH EVERY 6 HOURS NEEDED FOR ANXIETY 180 Tablet 1 02/04/20 23 024 Discontinued(Re fill) Ozempic (0.25 or 0.5 MG/DOSE) 2 MG/1.5ML Solution Pen-injector (Semaglutide(0.25 or 0.5MG/DOS))Indicat ions:Type 2 diabetes mellitus with hemoglobin A1c goal of less than 7.0% (HCC) Inject 0.25 mg under the skin once a week for 30 days, THEN 0.5 mg once a week. 2.3 mL 3 05/15/20 024 Discontinued(Re fill) documented as of this encounter (statuses as of 09/22/2023) Active Problems Problem Noted Date Diagnosed Date Small intestinal bacterial overgrowth (SIBO) Biliary dyskinesia 12/15/2021 S/P drug eluting coronary stent placement 2021 SRIDEVI (generalized anxiety disorder) 03/05/2021 Old [place] (myocardial infarction) 03/02/2021 Coronary artery disease invo lving [place] coronary artery of [place] heart without angina pectoris 03/02/2021 Acute recurrent pancreatitis 09/09/2020 Dyslipidemia 02/08/2019 Type 2 diabetes mellitus wit h hemoglobin A1c goal of less than 7.0% 02/08/2019 Postsurgical hypothyroidism 03/30/2015 Tobacco use disorder 06/12/2006 documented as of this encounter (statuses as of 09/22/2023) Resolved Problems Problem Noted Date Diagnosed Date [...] as of this encounter (statuses as of 09/22/2023) Immunizations Name Administration Dates Next Due TDAP [...] encounter Miscellaneous Notes * Telephone Encounter - Dunia Guzman RN - 06/26/2023 8:45 AM EST Called patient for pre anesthesia evaluation for upcoming procedure on 07-02-23 ,no answer. Left message on cell /request return call /made aware on need for instruction with jamey gresham with cardiology documented in this encounter Plan of Treatment Scheduled Procedures Name Priority Associated Diagnoses Date/Ti me COLONOSCOPY FLEXIBLE PROXIMAL DIAGNOSTIC Recall Intestinal metaplasia of stomach Chronic diarrhea ESOPHAGOGASTRODUODENOSCOPY ( EGD), FLEXIBLE, TRANSORAL, DIAGNOSTIC Recall Intestinal metaplasia of stomach Chronic diarrhea Health Maintenance Due Date Last Done Comments DISCUSS TOBACCO CESSATION (REFER TO SMARTSET #0013) 1970 Pneumococcal Vaccine: Pediatrics (0 to 5 [...] and were consensually agreed upon. Care Teams Gum Scoring Machine Operator Relationship Specialty Start Date End Date Edwin Espinoza MD [address] [facility] [place] [address] PCP - General Family Medicine 08/28/20 documented as of this encounter
--- OUTSIDE RECORDS SUMMARY | 2024-02-08 14:36 | External Medical Summary | Summary of Care ---
Author Name Unknown Organization [facility] Address [address] [place] [address] Phone [phone] Care Team Providers Care Manager Flight Operations Name Role Phone Edwin Espinoza MD Primary Care Provider [phone] Reason for Visit * Reason Comments eRx-Medication Refill Encounter Details Date Type Department Care Team (Late st Contact Info) Description 09/21/2023 Refill Family Practice [facility] [address] [place] [address] Edwin Espinoza MD [address] [place] [address] Type 2 diabetes mellitus with hemoglobin A1c goal of less than 7.0% ([facility]) Allergies No known active allergiesdocumented as of this encounter (statuses as of 09/22/2023) Medications Medication Sig Dispensed Refills Start Date End Date Status Aspirin 81 MG Oral Tablet Delayed Release Take 1 Tablet by mouth in the morning. 0 Active Ondansetron HCl 4 MG Oral Tablet (Zofran) Take 1 Tablet by mouth as needed. 0 02/22/2021 Active Cholestyramine 4 GM Oral Packet (Questran) Take 1 Packet (4 g) by mouth daily. 90 Each 1 05/15/2022 Active Additional Information Patient not taking.Reported on 05/14/2023 Ursodiol 300 MG Oral Capsule (Actigall)Indicatio ns:Chronic RUQ pain Take 1 Capsule by mouth in the morning and 1 Capsule before bedtime. 60 Capsule 0 10/08/2022 Active Fenofibrate 145 MG Oral Tablet (Tricor) Take 1 Tablet by mouth in the morning. 90 Tablet 3 10/08/2022 Active Ticagrelor 90 MG Oral Tablet (Brilinta) Take 1 Tablet by mouth in the morning and 1 Tablet before bedtime. 180 Tablet 3 11/04/2022 Active Ibuprofen 800 MG Oral Tablet (Motrin) [...] mouth in the morning. 0 Active Pen [place] 32G X 6 MM Use as directed at bedtime. Use with lantus pen 90 Each 3 01/01/2023 Active Pantoprazole Sodium 20 MG Oral Tablet Delayed Release (Protonix)Indicatio ns:Gastroesophageal reflux disease without esophagitis TAKE 1 TABLET BY MOUTH IN THE MORNING 30 MINUTES BEFORE FIRST MEAL OF THE DAY. DO NOT CUT, CRUSH, OR CHEW 90 Tablet 1 04/27/2023 Active Lisinopril 5 MG Oral Tablet (Prinivil) [...] twice weekly 42.5 g 3 05/18/2023 Active Metoprolol Tartrate 25 MG Oral Tablet (Lopressor) Take 0.5 Tablets by mouth in the morning and 0.5 Tablets before bedtime. 180 Tablet 0 05/22/2023 Active Levothyroxine Sodium 125 MCG Oral Tablet [...] FOR ANXIETY. 180 Tablet 1 09/15/2023 Active Ozempic (0.25 or 0.5 MG/DOSE) 2 MG/1.5ML Solution Pen-injector (Semaglutide(0.25 or 0.5MG/DOS))Indicati ons:Type 2 diabetes mellitus with hemoglobin A1c goal of less than 7.0% ([facility]) Inject 0.25 mg under the skin once a week for 30 days, THEN 0.5 mg once a week. 2.3 mL 3 09/15/2023 Active documented as of this encounter (statuses as of 09/22/2023) Active Problems Problem Noted Date Diagnosed Date Small intestinal bacterial overgrowth (SIBO) Biliary dyskinesia 12/15/2021 S/P drug eluting coronary stent placement 2021 SRIDEVI (generalized anxiety disorder) 03/05/2021 Old [place] (myocardial infarction) 03/02/2021 Coronary artery disease invo lving [place] coronary artery of [place] heart without angina pectoris 03/02/2021 Acute recurrent [...] encounter Miscellaneous Notes * Telephone Encounter - Vanessa France, [facility] - 09/22/2023 9:14 AM EDT Refused Prescriptions: Disp Refills Ozempic (0.25 or 0.5 MG/DOSE) 2 MG/3ML Valerie*3 mL 0 Sig: INJECT 0.25MG SUBCUTANEOUSLY ONCE A WEEK FOR 30 DAYS THEN 0.5MG ONCE A WEEKRefused By: VANESSA FRANCE for Refusal: Duplicate Request documented in this encounter Plan of Treatment Scheduled Procedures Name Priority Associated Diagnoses Date/Ti me COLONOSCOPY FLEXIBLE PROXIMAL DIAGNOSTIC Recall Intestinal metaplasia of stomach Chronic diarrhea ESOPHAGOGASTRODUODENOSCOPY ( EGD), FLEXIBLE, TRANSORAL, DIAGNOSTIC Recall Intestinal metaplasia of stomach Chronic diarrhea Health Maintenance Due Date Last Done Comments DISCUSS TOBACCO CESSATION (REFER TO SMARTSET #2410) 1970 Pneumococcal Vaccine: Pediatrics (0 to 5 [...] Albumin/Creatinine Ratio 01/23/2024 01/22/2023 GFR 01/23/2024 01/22/2023, 0710/2022, 12/13/2021, Additional history exists TSH 01/23/2024 01/22/2023, [...] A1c goal of less than 7.0% (HCC) documented in this encounter Advance Directives Latest Code Status on File Code Status Date Activated Date Inactivated Comments Full Code 01/07/2013 10:34 AM 01/08/2013 1:37 PM This o rder reflects the patients wishes and were consensually agreed upon. Care Teams Manager Flight Operations Relationship Specialty Start Date End Date Edwin Espinoza MD [address] [place] [address] PCP - General Family Medicine 08/28/20 documented as of this encounter
[2024-02-08 15:04] LABS: Basophils # (auto) 0.11 K/uL (0.00-0.20); Basophils % (auto) 1.1 %; Eosinophils # (auto) 0.12 K/uL (0.00-0.50); Eosinophils % (auto) 1.2 %; Hematocrit (blood only) 41.5 % (37.0-47.0); Hemoglobin 14.1 g/dl (12.0-16.0); Immature Granulocytes # (auto) 0.15 K/uL (0.01-0.20); Immature Granulocytes % (auto) 1.5 %; Lymphocytes # (auto) 3.07 K/uL (1.20-3.40); Lymphocytes % (auto) 30.4 %; Mean Corpuscular Hemoglobin 28.7 pg (25.0-34.0); Mean Corpuscular Volume 84.5 fL (80.0-100.0); Mean Platelet Volume 9.6 fL (9.4-12.4); Monocytes # (auto) 0.61 K/uL (0.11-0.59); Neutrophils # (auto) 6.03 K/uL (1.40-6.50); Neutrophils % (auto) 59.8 %; Platelet Count 286 K/uL (130-400); RDW Coefficient of Variation 13.4 % (11.5-14.5); RDW Standard Deviation 41.2 fL (36.4-46.3); Red Blood Count 4.91 M/uL (4.20-5.40); White Blood Count 10.09 K/ul (4.8-10.8)
--- NOTE | 2024-02-08 15:06 | XRay Report ---
XR chest 1V not portable HISTORY: Chest pain, nonspecific COMPARISON: Chest 12/19/2022. FINDINGS: The lungs are clear. Cardiac silhouette is normal in size. No pleural effusions. No pneumot horax. Surgical clips noted at the neck base. Metallic anchor within the left glenoid. IMPRESSION: No significant change compared to the prior study. No acute process. ACT 112: Negative or not required by law. Electronically signed by: Blake Rios M.D. 02/08/2024 3:05 PM
[2024-02-08 15:23] LABS: Albumin Globulin Ratio 1.7 (0.9-2); Albumin Level 4.7 gm/dl (3.4-5.0); BUN Creatinine Ratio 18.2 (10-20); Bilirubin,Total 0.3 mg/dl (0.2-1.0); Calcium 10.8 mg/dl (8.6-10.3); Creatinine Clr Calc Pharmacy 83.4 ml/min; Est GFR (African American) 102.2 ml/min; Est GFR (Non-African American) 88.2 ml/min; Globulin 2.7 gm/dl (2.5-4.0); Potassium 3.9 mmol/L (3.5-5.1); Total Protein 7.4 gm/dl (6.0-8.3)
[2024-02-08 15:27] LABS: INR 1.1 (0.9-1.1); Partial Thromboplastin Ratio 0.9; Partial Thromboplastin Time 24 Seconds (21-31); Prothrombin Time 11.7 Seconds (9.0-12.0)
[2024-02-08 15:29] LABS: Troponin I High Sensitivity 3.7 pg/ml (0-14)
--- NOTE | 2024-02-08 15:30 | Emergency Department Note ---
Impression & Plan Chest pain ED Provider Note HISTORY OF PRESENT ILLNESS: Patient is a 53-year-old female presenting with chest pain. Patient reports has been having intermittent episodes of substernal chest pain since about noon today. Locates the pain to the substernal chest with radiation across into her left chest. She describes it as a "deep burning sensation." She states it does not feel similar to her previous heart attack, as that felt like "really bad heartburn." She states "this does not feel the same, but it does not feel right." Denies any significant shortness of breath or lightheadedness. Denies any nausea or vomiting. She is on aspirin and Brilinta. She has a history of cardiac stents. Denies any DVT or PE history. ROS: as above PHYSICAL EXAM: Constitutional: Patient appears in no acute distress. HENT: Head: Normocephalic and atraumatic. Eyes: EOMI, PERRL Mouth/Throat: Mucous membranes moist. Neck: Trachea midline. Neck supple. Cardiovascular: RRR, No murmurs, rubs or gallops. Intact distal pulses. Pulmonary/Chest: No respiratory distress. Breath sounds clear and equal bilaterally. No wheezes or rales. Abdominal: Abdomen soft, no tenderness, rebound or guarding. Musculoskeletal: No edema, tenderness or deformity noted. Skin: Warm and dry. No rash, erythema, pallor or cyanosis Psychiatric: Appropriate mood and affect for situation. Neurological: Alert and keenly responsive. CN II-XII grossly intact, moving all extremities equally and fully. MDM: - Vitals signs stable. - History obtained via patient. History as above. - Chronic conditions affecting care: hypothyroidism; DM-2; HTN; HLD; CAD (s/p PCI); GERD - Differential diagnoses include, but are not limited to: Acute coronary syndrome; pulmonary embolism; dissection; tension pneumothorax; esophageal rupture; pneumonia - Order placed for continuous cardiac monitoring. At this time, monitor showed rate of 67 bpm with normal sinus rhythm, per my interpretation. - External medical records reviewed. Cardiology visit note dated 12/01/2022 was reviewed. Patient follows in their clinic for her cardiac stents. She has a history of CAD and an inferior STEMI in February 2021 with a drug-eluting stent placed to her distal RCA. She had an NSTEMI in September 2021 and had 3 additional drug-eluting stents (1 to mid, 2 overlapping prox/distal aspect of prior stent into PDA) placed. - EKG interpreted by myself showed normal sinus rhythm. Rate 79 bpm. QT 396. No acute ischemic changes. - Laboratory workup interpreted by myself showed normal WBC; normal PT/INR; stable electrolytes other than hypercalcemia (Ca 10.8); normal troponin - CXR negative for pneumonia, per my interpretation - Patient given 324 mg PO aspirin. Given 50 mcg IV fentanyl for her continued chest pain in the ER. - Repeat troponin within normal limits - HEART score 4 (History +1 moderately suspicious; EKG +0; Age +1; Risk factors +2; Initial troponin +0), amounting to a moderate score. - Patient continues to have recurrent episodes of chest pain in the emergency department. She has not had formal cardiac workup in over 2 years, but she does have a history of multiple drug-eluting stents. Will admit to hospital service for further evaluation and management. - Discussion was had with social work case manager about patient's case and need for admission - Hospitalist, Dr. Mtz, consulted for admission - Patient admitted to [facility] service for further evaluation and management. ASSESSMENT AND PLAN: Diagnosis: Chest pain Plan: Admit Past Med/Surg History Problem List (Updated 02/08/24 @ 17:30 by Laurita Moore MD) Chest pain (Acute) Hypomagnesemia (Acute) Acute pancreatitis (Acute) Hypertension (Acute) Dyslipidemia STEMI (ST elevation myocardial infarction) Post-surgical hypothyroidism Inferior [place] Diabetes Tobacco use disorder Uterine mass (Acute) Fibroid uterus (Acute) Heavy periods (Acute) Medical History Acute hyperglycemia Anxiety CAD (coronary artery disease) Chest pain Diabetes Diabetes mellitus, type II GERD (gastroesophageal reflux disease) HLD (hyperlipidemia) HTN (hypertension) Hypomagnesemia Hypothyroidism NSTEMI (non-ST elevated myocardial infarction) Post-surgical hypothyroidism Substernal chest pain Tobacco use Tobacco use disorder Surgical History History of delivery History of hysterectomy History of thyroidectomy Family History Mother Diabetes Liver cirrhosis secondary to YOU Pulmonary hypertension Grandfather (Paternal) Coronary heart disease [place] in mid 40's Social History Smoking Status: Current every day smoker Tobacco Type: Cigarettes and E-cigarettes / Vaping Cigarettes Per Day: 1 pack; Second Hand Exposure: Yes; Do You Dip or Chew Tobacco: No; Hx Alcohol Use: No Hx Substance Use: No Preferred Language: Japanese Communication Ability: Effective Government Relations Manager Required: No Beliefs That Will Affect Care: None Current Living Situation: Family Current Living Situation Comment: Lives with son 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 Feels Safe at Home: Yes Assistive Devices: None Allergies Allergies Allergy/AdvReac Type Severity Reaction Status Date / Time No Known Allergies Allergy Verified 12/19/22 23:46 Home Meds Home Medications Medication Instructions Recorded Confirmed hydroxyzine pamoate 25 mg capsule See Rx Instructions .Route 09/04/20 12/19/22 (Vistaril) .COMPLEX PRN Anxiety levothyroxine 125 mcg tablet 125 mcg PO QAM 09/04/20 12/19/22 (Levoxyl) ursodiol 300 mg capsule 300 mg PO DAILY 09/04/20 12/19/22 fenofibrate nanocrystallized 145 145 mg PO DAILY 02/22/21 12/19/22 mg tablet pantoprazole 40 mg tablet,delayed 20 mg PO DAILY 02/22/21 12/19/22 release aspirin 81 mg tablet,delayed 81 mg PO HS 09/07/21 12/19/22 release ondansetron 8 mg disintegrating 8 mg PO Q8H PRN Nausea And Vomiting 09/07/21 12/19/22 tablet metformin 500 mg tablet,extended 1,000 mg PO DAILY 12/21/22 12/21/22 release 24 hr Previous Rx's Medication Instructions Recorded atorvastatin 80 mg tablet 80 mg PO DAILY #30 tabs 02/24/21 lisinopril 5 mg tablet (Zestril) 5 mg PO QAM #30 tabs 02/24/21 metoprolol tartrate 25 mg tablet 12.5 mg (1/2 x 25 mg) PO BID #30 02/24/21 tabs ticagrelor 90 mg tablet (Brilinta) 90 mg PO BID #60 tabs 02/24/21 magnesium chloride 64 mg 64 mg PO BID #30 tabs 12/21/22 (magnesium chloride) tablet,delayed release (Mag 64) Results & Data (ED) Vital Signs Vital Signs - 24 hr 02/08/24 14:30 02/08/24 17:00 Temperature 36.5 C Temperature Source Temporal Artery Scan Pulse Rate 84 Pulse Rate [Apical] 66 Pulse Rhythm Regular Pulse Strength Normal Respiratory Rate 20 18 Respiratory Effort / Characteristics Non-Labored Spontaneous Respiratory Depth Normal Blood Pressure 133/85 Blood Pressure [Right Arm] 120/78 Blood Pressure Mean 101 Blood Pressure Mean [Right Arm] 92 Pulse Oximetry 99 98 Oxygen Delivery Method Room Air Room Air Sepsis Recent Fever Within 48 Hours No Sepsis New/Unexplained Change in Mental Status N/A Sepsis Action Taken by Nursing No Action Required Laboratory Data 02/08/24 14:39 02/08/24 14:39 Lab Results 02/08/24 02/08/24 Range/Units 14:39 16:40 WBC 10.09 (4.8-10.8) K/ul RBC 4.91 (4.20-5.40) M/uL Hgb 14.1 (12.0-16.0) g/dl Hct 41.5 (37.0-47.0) % MCV 84.5 (80.0-100.0) fL MCH 28.7 (25.0-34.0) pg MCHC 34.0 (32.0-36.0) g/dL RDW Std Deviation 41.2 (36.4-46.3) fL RDW Coeff of Meliton 13.4 (11.5-14.5) % Plt Count 286 (130-400) K/uL MPV 9.6 (9.4-12.4) fL Immature Gran % (Auto) 1.5 % Neut % (Auto) 59.8 % Lymph % (Auto) 30.4 % [place] % (Auto) 6.0 % Eos % (Auto) 1.2 % Baso % (Auto) 1.1 % Neut # (Auto) 6.03 (1.40-6.50) K/uL Lymph # (Auto) 3.07 (1.20-3.40) K/uL [place] # (Auto) 0.61 H (0.11-0.59) K/uL Eos # (Auto) 0.12 (0.00-0.50) K/uL Baso # (Auto) 0.11 (0.00-0.20) K/uL Immature Gran # (Auto) 0.15 (0.01-0.20) K/uL PT 11.7 (9.0-12.0) Seconds INR 1.1 (0.9-1.1) APTT 24 (21-31) Seconds PTT Ratio 0.9 Sodium 138 (136-145) mmol/L Potassium 3.9 (3.5-5.1) mmol/L Chloride 102 (98-107) mmol/L Carbon Dioxide 28 (21-32) mmol/L Anion Gap 8 (3-11) BUN 14 (6-23) mg/dl Creatinine 0.77 (0.6-1.2) mg/dl Est Cr Clr Drug Dosing 83.4 ml/min Est GFR ( Amer) 102.2 ml/min Est GFR (Non-Af Amer) 88.2 ml/min BUN/Creatinine Ratio 18.2 (10-20) Glucose 205 H (70-99(Fasting)) mg/dl Calcium 10.8 H (8.6-10.3) mg/dl Total Bilirubin 0.3 (0.2-1.0) mg/dl AST 24 (13-39) U/L ALT 34 (7-52) U/L Alkaline Phosphatase 120 H (34-104) U/L Troponin I High Sens 3.7 3.3 (0-14) pg/ml Total Protein 7.4 (6.0-8.3) gm/dl Albumin 4.7 (3.4-5.0) gm/dl Globulin 2.7 (2.5-4.0) gm/dl Albumin/Globulin Ratio 1.7 (0.9-2) Imaging Data Radiologist's Impression: Chest X-Ray 02/08/24 14:32 XR chest 1V not portable HISTORY: Chest pain, nonspecific COMPARISON: Chest 12/19/2022. FINDINGS: The lungs are clear. Cardiac silhouette is normal in size. No pleural effusions. No pneumothorax. Surgical clips noted at the neck base. Metallic anchor within the left glenoid. IMPRESSION: No significant change compared to the prior study. No acute process. ACT 112: Negative or not required by law. Electronically signed by: Blake Rios M.D. 02/08/2024 3:05 PM Discharge Plan Visit Data Chief Complaint: Chest Pain Stated Complaint: CHEST PAIN ED Provider: Laurita Moore Discharge Problem: Chest pain Forms Stand Alone Forms: [facility] Prescriptions Prescriptions: No Action levothyroxine [Levoxyl] 125 mcg tablet 125 mcg PO QAM ursodiol 300 mg capsule 300 mg PO DAILY hydroxyzine pamoate [Vistaril] 25 mg capsule See Rx Instructions .ROUTE .COMPLEX PRN (Reason: Anxiety) Rx Instructions: take one and one-half tablet every 6 hours prn anxiety Mag 64 64 mg Tablet,Delayed Release (Dr/Ec) 64 mg PO BID Qty: 30 0RF metformin 500 mg tablet extended release 24 hr 1,000 mg PO DAILY pantoprazole 40 mg tablet,delayed release (DR/EC) 20 mg PO DAILY fenofibrate nanocrystallized 145 mg tablet 145 mg PO DAILY Brilinta 90 mg Tablet 90 mg PO BID Qty: 60 1RF lisinopril [Zestril] 5 mg Tablet 5 mg PO QAM Qty: 30 1RF metoprolol tartrate 25 mg Tablet 12.5 mg PO BID Qty: 30 1RF atorvastatin 80 mg tablet 80 mg PO DAILY Qty: 30 1RF ondansetron 8 mg Tablet,Disintegrating 8 mg PO Q8H PRN (Reason: Nausea And Vomiting) aspirin 81 mg tablet,delayed release (DR/EC) 81 mg PO HS Referrals Referrals: Edwin Espinoza MD [Primary Care Provider] -
[2024-02-08] MEDS: ASPIRIN CHEW 324 MG PO STA (17:49)
[2024-02-08] MEDS: fentaNYL citrate PF 100 MCG/2 ML VIAL IV STA (18:16)
--- NOTE | 2024-02-08 18:27 | History & Physical Report ---
Date of Service February 08, 2024 Assessment & Plan (1) Atypical chest pain: Plan: Presented with central chest discomfort/pain without any associated symptoms History of CAD with 4 stent placement on and before 2020 Initial EKG and troponins are unremarkable Significant risk factors including diabetes hyperlipidemia and obesity and also smoking Will admit to medical telemetry unit for observation Serial cardiac enzymes and echocardiogram will be done including EKG Will continue her usual medications including aspirin, beta-emely, statin, Brilinta for now Ultrasound of the liver will be done to rule out any gallstone disease and doubt any pancreatitis at this time Will get a cardiology evaluation in the morning (2) CAD (coronary artery disease): Plan: As above (3) Diabetes mellitus, type II: Plan: Will continue home doses of insulin and put her on sliding scale Blood sugar to be checked ACHS Will get hemoglobin A1c (4) Hypothyroidism: Plan: Continue thyroid replacement Check TSH (5) Anxiety: (6) Dyslipidemia: Plan: Will check the fasting lipid profile and continue her current medications DVT prophylaxis Subcu heparin CODE STATUS Full History of Present Illness Chief Complaint: Chest pain off and on since this morning Primary Care Provider: Edwin Espinoza MD She is a 53-year-old female with significant past medical history of type 2 diabetes on insulin, CAD status post 4 stents placement in the past, hypothyroidism, hyperlipidemia, SRIDEVI, biliary dyskinesia and also history of recurrent acute pancreatitis apparently has been complaining of chest pain off and on since this morning. The pain seems to be in the center of the chest and bilaterally is not up with typical pain but discomfort the patient cannot explain clearly. There is no aggravating or relieving factors. The pain last for few seconds at one time and not associated with any nausea, vomiting, palpitation, sweating or dizziness. There is no radiation of pain. She denies any bloating and she has been on Ozempic as well to reduce weight. She has history of tobacco use disorder. Her initial troponins x 2 2 hours apart and EKG were unremarkable but given the history of CAD with poor stent placement in the past and history of diabetes with ongoing smoking she was admitted to medical telemetry unit for continuation of care. Allergies Allergy/AdvReac Type Severity Reaction Status Date / Time No Known Allergies Allergy Verified 02/08/24 18:14 Home Medications Medication Instructions Recorded Confirmed Type hydroxyzine pamoate 25 mg capsule See Rx Instructions .Route 09/04/20 02/08/24 History (Vistaril) .COMPLEX PRN Anxiety levothyroxine 125 mcg tablet 125 mcg PO QAM 09/04/20 02/08/24 History (Levoxyl) fenofibrate nanocrystallized 145 145 mg PO QAM 02/22/21 02/08/24 History mg tablet lisinopril 5 mg tablet (Zestril) 5 mg PO QAM #30 tabs 02/24/21 02/08/24 Rx metoprolol tartrate 25 mg tablet 12.5 mg (1/2 x 25 mg) PO BID #30 02/24/21 02/08/24 Rx tabs ticagrelor 90 mg tablet (Brilinta) 90 mg PO BID #60 tabs 02/24/21 02/08/24 Rx aspirin 81 mg tablet,delayed 81 mg PO HS 09/07/21 02/08/24 History release ondansetron 8 mg disintegrating 8 mg PO Q8H PRN Nausea And Vomiting 09/07/21 02/08/24 History tablet atorvastatin 80 mg tablet 80 mg PO QAM 02/08/24 02/08/24 History insulin glargine 100 unit/mL 25 unit subcut HS 02/08/24 02/08/24 History subcutaneous solution (Lantus U-100 Insulin) pantoprazole 20 mg tablet,delayed 20 mg PO QAM 02/08/24 02/08/24 History release semaglutide 0.25 mg or 0.5 mg (2 0.5 mg subcut WK 02/08/24 02/08/24 History mg/3 mL) subcutaneous pen injector (Ozempic) Past Med/Surg History Problem List (Updated 02/08/24 @ 18:22 by Jose Mtz MD) Atypical chest pain Chest pain (Acute) Hypomagnesemia (Acute) Acute pancreatitis (Acute) Hypertension (Acute) Dyslipidemia STEMI (ST elevation myocardial infarction) Post-surgical hypothyroidism Inferior MA Diabetes Tobacco use disorder Uterine mass (Acute) Fibroid uterus (Acute) Heavy periods (Acute) Medical History Acute hyperglycemia Anxiety CAD (coronary artery disease) Chest pain Diabetes Diabetes mellitus, type II GERD (gastroesophageal reflux disease) HLD (hyperlipidemia) HTN (hypertension) Hypomagnesemia Hypothyroidism NSTEMI (non-ST elevated myocardial infarction) Post-surgical hypothyroidism Substernal chest pain Tobacco use Tobacco use disorder Surgical History History of delivery History of hysterectomy History of thyroidectomy Family History Mother Diabetes Liver cirrhosis secondary to YOU Pulmonary hypertension Grandfather (Paternal) Coronary heart disease [place] in mid 40's Social History Smoking Status: Current every day smoker Tobacco Type: Cigarettes Cigarettes Per Day: 1 pack; Second Hand Exposure: Yes; Do You Dip or Chew Tobacco: No; Tobacco Cessation Education Requested by Patient: No Hx Alcohol Use: No Hx Substance Use: No Preferred Language: Ghanaian Communication Ability: Effective Media Assistant Required: No Beliefs That Will Affect Care: None Current Living Situation: Family Current Living Situation Comment: Lives with son 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 Other Information That Helps Us Care for You: No Feels Safe at Home: Yes Safety Concerns: Feels Safe At This Time Assistive Devices: Glasses Review of Systems Review of Systems: All systems reviewed and unremarkable except as noted below Physical Exam Physical Exam: Sitting on the bed without any acute distress but anxious Constitutional: well developed, well nourished, + ill appearing and + obese Eyes: PERRL, conjunctivae normal, anicteric sclerae ENMT: external ear and nose normal, oropharynx normal Neck: trachea midline, no thyromegaly Respiratory: no respiratory distress Auscultation: lungs clear to auscultation bilaterally; no crackles Cardiovascular: Rate/Rhythm: regular rate and regular rhythm; not tachycardic Heart Sounds: normal S1, normal S2 and + murmur (1/6 to 2/6 ESM over precordium) Extremities: no edema Gastrointestinal (Abdomen): Inspection/Auscultation: normal bowel sounds; abdomen not distended Percussion/Palpation: abdomen soft; abdomen nontender Musculoskeletal: No acute arthritis involving any of the joint Neurologic: normal touch/pain/proprioception and moves all extremities; no focal motor deficits Psychiatric: A+Ox3, euthymic affect Lymphatic: no cervical or axillary lymphadenopathy Results & Data Results & Data Vital Signs (Past 12 Hours) Vital Signs Temp Pulse Pulse Resp BP BP Pulse Ox 02/08/24 17:54 66 02/08/24 17:00 66 18 120/78 98 02/08/24 14:30 36.5 C 84 20 133/85 99 O2 Del Method 02/08/24 17:54 02/08/24 17:00 Room Air 02/08/24 14:30 Room Air Laboratory Results Short CBC 02/08/24 Range/Units 14:39 WBC 10.09 (4.8-10.8) K/ul Hgb 14.1 (12.0-16.0) g/dl Hct 41.5 (37.0-47.0) % Plt Count 286 (130-400) K/uL BMP 02/08/24 14:39 Sodium 138 Potassium 3.9 Chloride 102 Carbon Dioxide 28 BUN 14 Creatinine 0.77 Glucose 205 H Calcium 10.8 H Liver Function 02/08/24 Range/Units 14:39 Total Bilirubin 0.3 (0.2-1.0) mg/dl AST 24 (13-39) U/L ALT 34 (7-52) U/L Alkaline Phosphatase 120 H (34-104) U/L Albumin 4.7 (3.4-5.0) gm/dl Medications Administered Current Inpatient Medications Heparin Sodium (Porcine) (Heparin Sod 5,000 Unit/0.5 Ml Vial) 5,000 units SQ Q12 MARLA Stop: 03/09/24 20:59
[2024-02-08] MEDS ORDERED: MoRPHine SULFATE 4 MG/ML 1 ML CARP\\VIAL IV PRN (18:31)
[2024-02-08] MEDS ORDERED: NITROGLYCERIN SL 0.4 MG/TAB TAB SL PRN (18:31)
[2024-02-08] MEDS: ACETAMINOPHEN 1,000 MG/100 ML VIAL IV STA (18:38)
--- NOTE | 2024-02-08 19:53 | Electrocardiogram Report ---
Test Reason : Blood Pressure : */* mmHG Vent. Rate : 79 BPM Atrial Rate : 79 BPM P-R Int : 176 ms QRS Dur : 92 ms QT Int : 396 ms P-R-T Axes : 64 51 74 degrees QTcB Int : 454 ms Normal sinus rhythm Possible Left atrial enlargement Possible Inferior infarct (cited on or before 19-Dec-2022) Possible Anterior infarct (cited on or before 19-Dec-2022) Nonspecific T wave abnormality Abnormal ECG When compared with ECG of 19-Dec-2022 19:40, No significant change Confirmed by Alf Madden ([id number]) on 02/08/2024 7:53:12 PM Referred By: Confirmed By: Alf Madden
[2024-02-08] MEDS ORDERED: hydrOXYzine HCl 25 MG TAB PO PRN (20:20)
[2024-02-08] MEDS ORDERED: GLUCOSE 10 TAB/TUBE PO PRN (20:30)
[2024-02-08] MEDS ORDERED: GLUCAGON FOR INJ 1 MG VIAL IM PRN (20:30)
[2024-02-08] MEDS ORDERED: DEXTROSE 50% 50 ML SYRINGE IV PRN (20:30)
[2024-02-08] MEDS ORDERED: CARBOHYDRATES FOR HYPOGLYCEMIA PO PRN (20:30)
[2024-02-08] MEDS ORDERED: GLUCOSE 40% GEL 15 GM TUBE PO PRN (20:30)
[2024-02-08] MEDS: HEPARIN SOD 5,000 UNIT/0.5 ML VIAL SQ SCH (20:55)
[2024-02-08] MEDS: MAGNESIUM CHLORIDE W/CALCIUM 64MG DELAYED REL TAB PO SCH (21:20)
[2024-02-08] MEDS: METOPROLOL TARTRATE 25 MG TAB PO SCH (21:31)
[2024-02-08] MEDS: TICAGRELOR 90 MG TAB PO SCH (21:32)
[2024-02-08] MEDS: INSULIN ASPART PER UNIT CHARGE SC SCH (21:33)
[2024-02-08] MEDS: LANTUS PER UNIT CHARGE SQ SCH (21:33)
[2024-02-08] MEDS: ZOLPIDEM TARTRATE 5 MG TAB PO STA (23:13)
[2024-02-08 23:24] VITALS: RESP 18
[2024-02-09 02:51] LABS: Hematocrit (blood only) 38.5 % (37.0-47.0); Hemoglobin 13.4 g/dl (12.0-16.0); Mean Corpuscular Hgb Conc 34.8 g/dL (32.0-36.0); Mean Corpuscular Volume 83.3 fL (80.0-100.0); Mean Platelet Volume 9.5 fL (9.4-12.4); Platelet Count 260 K/uL (130-400); RDW Coefficient of Variation 13.3 % (11.5-14.5); Red Blood Count 4.62 M/uL (4.20-5.40); White Blood Count 10.59 K/ul (4.8-10.8)
[2024-02-09 03:08] LABS: Basophils # (auto) 0.11 K/uL (0.00-0.20); Eosinophils # (auto) 0.17 K/uL (0.00-0.50); Eosinophils % (auto) 1.6 %; Immature Granulocytes # (auto) 0.12 K/uL (0.01-0.20); Immature Granulocytes % (auto) 1.1 %; Lymphocytes # (auto) 4.48 K/uL (1.20-3.40); Lymphocytes % (auto) 42.3 %; Monocytes # (auto) 0.63 K/uL (0.11-0.59); Monocytes % (auto) 5.9 %; Neutrophils # (auto) 5.08 K/uL (1.40-6.50); Neutrophils % (auto) 48.1 %; RBC Morphology Unremarkable
[2024-02-09 03:10] LABS: BUN Creatinine Ratio 16.7 (10-20); Calcium 10.4 mg/dl (8.6-10.3); Chol HDL Ratio 5.6 (0-5); Creatinine Clr Calc Pharmacy 82.1 ml/min; Est GFR (African American) 100.6 ml/min; Est GFR (Non-African American) 86.8 ml/min; Potassium 3.8 mmol/L (3.5-5.1)
[2024-02-09 03:26] LABS: Thyroid Stimulating Hormone 3.603 uIu/ml (0.300-4.500)
[2024-02-09] MEDS: LEVOTHYROXINE SODIUM 125 MCG TABLET PO SCH (05:41)
[2024-02-09 05:50] LABS: Folate (Folic Acid),Ser orPlas 11.22 ng/ml (>5.38)
--- NOTE | 2024-02-09 07:13 | Ultrasound Report ---
US gallbladder CLINICAL HISTORY: Abdominal pain. Evaluate for gallstones. COMPARISON STUDY: CT of the abdomen and pelvis September 04, 2020. Right upper quadrant ultrasound December 20, 2022. FINDINGS: Hepatic echogenicity is increased consistent with hepatic steatosis. The liver is mildly en larged. Hypoechoic foci within the gallbladder fossa favor fatty sparing. There is no biliary ductal dilatation. Pancreas is largely obscured. There are no gallstones within the gallbladder. A few tiny gallbladder polyps measure up to 3 mm. There is no right hydronephrosis. IMPRESSION: 1. No gallstones. No biliary ductal dilatation. 2. Hepatic steatosis. 3. Largely obscured pancreas. ACT 112: Negative or not required by law. Electronically signed by: Scott Milner M.D. 02/09/2024 7:12 AM
[2024-02-09 07:44] LABS: Estimated Average Glucose 200 mg/dl; Hemoglobin A1C 8.6 % (4.5-5.6)
[2024-02-09] MEDS ORDERED: PANTOprazole 40 MG TAB PO SCH (09:00)
--- NOTE | 2024-02-09 09:01 | Cardiology Consultation ---
Date of Consultation February 09, 2024 Assessment & Plan (1) Atypical chest pain: (2) CAD (coronary artery disease): (3) Hypertension: (4) Dyslipidemia: (5) Diabetes: Plan Assessment: 53 year old female with positive CAD history including stents and multiple risk factors presents for atypical chest pain symptoms lasting over 12 hours. Cardiology asked to evaluate patient in the setting of her history of coronary disease. Plan: 1. Atypical chest pain: 2. CAD 3. HTN 4. Dyslipidemia -Reports "very different" from her prior cardiac events and lasted over 12 hours which decreases suspicion of an acute coronary event. EKG with no acute changes, and high sensitively troponin negative x4. -Review of telemetry shows NSR outside of one 2.3 second pause during wake hours in which patient was asymptomatic. Will discuss with Dr. Crain. -BP at target. -Currently on GDMT with Metoprolol tartrate 12.5mg PO BID, ASA 81mg QD, Lisinopril 5mg QD, atorvastatin 80mg QD and Fenofibrate 145mg QD. Will address as outpatient with recommendation to involve MTM for both diabetes and lipid management. -Labs reviewed. Triglycerides remain well above target. Continue both Atorvastatin and Fenofibrate. likely correlation due to poorly controlled diabetes with an HgB A1C greater than 8. -Awaiting echocardiogram. If no acute findings, discussed that it would be reasonable to plan for a OP stress test for further evaluation given her cardiac history. -Continue DAPT with ASA 81mg and Brilinta 90mg BID. Continue. 5. Diabetes: -Poorly controlled. -HgB A1C > 8.0 -discussed increased risk for a cardiac event in the setting of poorly controlled diabetes. -Continued management per primary team; however, will likely need to be established with MTM pharmacy team for tighter management as an outpatient. Case has been discussed with Dr. Crain. Further recommendations regarding plan of care as per his assessment. I spent a total of 40 minutes on the date of service in preparation, delivery, documentation of the care provided to the patient excluding any time spent in the performance of separately billed services. CHAUNCEY Jang [facility] Cardiology [facility] Supervising Physician Co-Signing Physician Notes I have personally performed a history and physical examination on the patient. I have reviewed the advance practitioner's documentation, and I agree with, and take responsibility for the plan of care. 53-year-old female presents to the emergency department due to chest discomfort. Describes a dull ache lasting several hours without associated shortness of breath or jaw discomfort. Previous angina included heartburn like symptoms with radiation to her jaw. No evidence of acute coronary syndrome. Currently patient is chest pain-free and requesting discharge. Further evaluation discussed including inpatient versus outpatient exercise stress echo. Patient declines any further inpatient testing at this time. She is agreeable to outpatient cardiology follow-up and exercise stress echo. An isolated 2.3- second pause was recorded on telemetry without associated symptoms. I suspect this was likely blocked supraventricular ectopy. No evidence of high degree AV block or significant pauses during sleep. Smoking cessation advised. Continue current cardiac medications. Appropriate for sublingual nitroglycerin reviewed. Raul Crain DO, [facility] History of Present Illness Reason for Consultation: Chest pain. History of CAD with prior stents. Requesting Physician: Mya lopez Attending Physician: Jose Mtz MD History of Present Illness HPI: Patient presented to the ED 02/08/24 with complaints of intermittent substernal chest pain x1 day. Patient states that the discomfort started yesterd ay morning while doing nothing. Described it as substernal and some left anterior chest wall "achiness", with no radiation and no other associated symptoms. Denied any change with activity or exertion. No change in symptoms with simple position changes. She reports the pain would last for seconds and then resolve, but would happen on and off frequently for several hours prompting her to present. States that it was not similar to her "prior heart pain" at all. later in the day she developed significant "hunger pains", ate and eventually the discomfort resolved with no other intervention. She has had no recurrence since. She has a history of CAD and an inferior STEMI in February 2021 with a drug- eluting stent placed to her distal RCA. She had an NSTEMI in September 2021 and had 3 additional drug-eluting stents (1 to mid, 2 overlapping prox/distal aspect of prior stent into PDA) placed. EKG on admission NSR rate 79. Prior cited inferior and anterior infarct. Repeat EKG this morning rate 62bpm. Troponin negative x4. Review of telemetry demonstrates NSR, rates in the 60's. There is a notation of a 2.3 second pause while awake this morning at 0929. patient denies any associated symptoms correlating with the event, only that staff came running in to check on her. Patient remains asymptomatic, ate breakfast and is requesting to go home. 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 Flores, will need to establish with new provider. Allergies Allergy/AdvReac Type Severity Reaction Status Date / Time No Known Allergies Allergy Verified 02/08/24 18:14 Home Medications Medication Instructions Recorded Confirmed Type hydroxyzine pamoate 25 mg capsule See Rx Instructions .Route 09/04/20 02/08/24 History (Vistaril) .COMPLEX PRN Anxiety levothyroxine 125 mcg tablet 125 mcg PO QAM 09/04/20 02/08/24 History (Levoxyl) fenofibrate nanocrystallized 145 145 mg PO QAM 02/22/21 02/08/24 History mg tablet lisinopril 5 mg tablet (Zestril) 5 mg PO QAM #30 tabs 02/24/21 02/08/24 Rx metoprolol tartrate 25 mg tablet 12.5 mg (1/2 x 25 mg) PO BID #30 02/24/21 02/08/24 Rx tabs ticagrelor 90 mg tablet (Brilinta) 90 mg PO BID #60 tabs 02/24/21 02/08/24 Rx aspirin 81 mg tablet,delayed 81 mg PO HS 09/07/21 02/08/24 History release ondansetron 8 mg disintegrating 8 mg PO Q8H PRN Nausea And Vomiting 09/07/21 02/08/24 History tablet atorvastatin 80 mg tablet 80 mg PO QAM 02/08/24 02/08/24 History insulin glargine 100 unit/mL 25 unit subcut HS 02/08/24 02/08/24 History subcutaneous solution (Lantus U-100 Insulin) pantoprazole 20 mg tablet,delayed 20 mg PO QAM 02/08/24 02/08/24 History release semaglutide 0.25 mg or 0.5 mg (2 0.5 mg subcut WK 02/08/24 02/08/24 History mg/3 mL) subcutaneous pen injector (Ozempic) Patient History Medical History Acute hyperglycemia Anxiety CAD (coronary artery disease) Chest pain Diabetes Diabetes mellitus, type II GERD (gastroesophageal reflux disease) HLD (hyperlipidemia) HTN (hypertension) Hypomagnesemia Hypothyroidism NSTEMI (non-ST elevated myocardial infarction) Post-surgical hypothyroidism Substernal chest pain Tobacco use Tobacco use disorder Surgical History History of delivery History of hysterectomy History of thyroidectomy Family History Mother Diabetes Liver cirrhosis secondary to OY[place] Pulmonary hypertension Grandfather (Paternal) Coronary heart disease [place] in mid 40's Social History Smoking Status: Current every day smoker Tobacco Type: Cigarettes Cigarettes Per Day: 1 pack; Second Hand Exposure: Yes; Do You Dip or Chew Tobacco: No; Tobacco Cessation Education Requested by Patient: No Hx Alcohol Use: No Hx Substance Use: No Preferred Language: Syriac Communication Ability: Effective Companion Required: No Beliefs That Will Affect Care: None Current Living Situation: Family Current Living Situation Comment: Lives with son 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 Other Information That Helps Us Care for You: No Feels Safe at Home: Yes Safety Concerns: Feels Safe At This Time Assistive Devices: Glasses Review of Systems Review of Systems: All systems reviewed & are unremarkable except as noted in HPI & below Physical Exam Constitutional: well developed and well nourished Neck: normal visual inspection and trachea midline Respiratory: normal respiratory effort Cardiovascular: RRR, no murmur, no edema Heart Sounds: normal S1 and normal S2; no murmur Vessels: no JVD Extremities: no edema Skin: no rashes, warm and dry Psychiatric: A+Ox3, euthymic affect Results & Data Vital Signs (Past 12 Hours) Vital Signs Temp Pulse Pulse Resp BP Pulse Ox O2 Del Method 02/09/24 07:35 36.5 C 64 18 120/77 97 Room Air 02/09/24 07:32 71 02/09/24 03:08 36.4 C L 59 L 18 120/75 96 Room Air 02/08/24 23:23 36.4 C L 61 18 109/73 97 Room Air 02/08/24 21:43 73 Laboratory Results Cardiac Enzymes 02/08/24 02/08/24 02/08/24 Range/Units 14:39 16:40 21:05 AST 24 (13-39) U/L Troponin I High Sens 3.7 3.3 3.7 (0-14) pg/ml 02/09/24 Range/Units 02:25 AST (13-39) U/L Troponin I High Sens 3.0 (0-14) pg/ml Coagulation 02/08/24 Range/Units 14:39 PT 11.7 (9.0-12.0) Seconds APTT 24 (21-31) Seconds Lipids 02/09/24 Range/Units 02:25 Triglycerides 339 H (0-150) mg/dl Cholesterol 140 (0-200) mg/dl HDL Cholesterol 25 mg/dl Cholesterol/HDL Ratio 5.6 H (0-5) CBC 02/08/24 02/09/24 Range/Units 14:39 02:25 WBC 10.09 10.59 (4.8-10.8) K/ul RBC 4.91 4.62 (4.20-5.40) M/uL Hgb 14.1 13.4 (12.0-16.0) g/dl Hct 41.5 38.5 (37.0-47.0) % Plt Count 286 260 (130-400) K/uL Neut # (Auto) 6.03 5.08 (1.40-6.50) K/uL Lymph # (Auto) 3.07 4.48 H (1.20-3.40) K/uL Pierce # (Auto) 0.61 H 0.63 H (0.11-0.59) K/uL Eos # (Auto) 0.12 0.17 (0.00-0.50) K/uL Baso # (Auto) 0.11 0.11 (0.00-0.20) K/uL Comprehensive Metabolic Panel 02/08/24 02/09/24 Range/Units 14:39 02:25 Sodium 138 139 (136-145) mmol/L Potassium 3.9 3.8 (3.5-5.1) mmol/L Chloride 102 105 (98-107) mmol/L Carbon Dioxide 28 27 (21-32) mmol/L BUN 14 13 (6-23) mg/dl Creatinine 0.77 0.78 (0.6-1.2) mg/dl Glucose 205 H 115 H (70-99(Fasting)) mg/dl Calcium 10.8 H 10.4 H (8.6-10.3) mg/dl AST 24 (13-39) U/L ALT 34 (7-52) U/L Alkaline Phosphatase 120 H (34-104) U/L Total Protein 7.4 (6.0-8.3) gm/dl Albumin 4.7 (3.4-5.0) gm/dl Intake and Output 02/08/24 02/09/24 02/09/24 22:59 06:59 14:59 Intake Total 650 / 650 Balance 650 / 650 Intake: Oral 650 / 650 Other: Weight 73.9 kg Weight Measurement Method Standing Scale Diagnostic Findings Most recent cardiac cath report 09/09/21: Summary: 1. Multivessel coronary artery disease -Diffuse up to 60% mid RCA, acute 98% distal RCA, 80% in-stent restenosis at bifurcation of PDA/PLB 30 to 40% proximal LAD 40% distal circumflex, 30% proximal OM2 2. Normal intracardiac filling pressure 3. Successful PCI of distal RCA into PDA with 2 additional drug-eluting stents (2.5 x 18 mm Xience overlapping proximal aspect of prior stent, 2.25 x 8 mm Xience overlapping distal aspect of prior stent). -Angioplasty of ostium of jailed posterior AV branch with 2.0 balloon 4. Successful PCI of mid RCA with 3.0 x 33 mm Xience HARINI (postdilated with 3.5 NC). (3) Hypertension Hypertension type: unspecified Qualified Code(s): I10 - Essential (primary) hypertension
[2024-02-09] MEDS: ATORVASTATIN 40 MG TAB PO SCH (09:12)
[2024-02-09] MEDS: CYANOCOBALAMIN 1000 MCG/ML VIAL IM SCH (09:13)
[2024-02-09] MEDS: lisinopril 5 MG TAB PO SCH (09:14)
[2024-02-09] MEDS: FENOFIBRATE NANOCRYSTALLIZED 145 MG TABLET PO SCH (09:14)
[2024-02-09] MEDS: ursodioL 300 MG CAP PO SCH (09:17)
[2024-02-09] MEDS: PANTOprazole 40 MG TAB PO SCH (09:17)
[2024-02-09 11:13] VITALS: TEMP 98.5; O2SAT 98
--- NOTE | 2024-02-09 12:51 | Hospitalist Progress Note ---
Date of Service February 09, 2024 Assessment & Plan (1) Atypical chest pain: Plan: Presented with central chest discomfort/pain without any associated symptoms History of CAD with 4 stent placement on and before 2020 Initial EKG and troponins are unremarkable Significant risk factors including diabetes hyperlipidemia and obesity and also smoking Will admit to medical telemetry unit for observation Serial cardiac enzymes and echocardiogram will be done including EKG Will continue her usual medications including aspirin, beta-emely, statin, Brilinta for now Ultrasound of the liver will be done to rule out any gallstone disease and doubt any pancreatitis at this time Will get a cardiology evaluation in the morning Ultrasound did not show any gallstones but he did show his hepatic steatosis Denies any more chest pain and/or palpitation and remained hemodynamically stable Noted to have a 2.3-second pause on the monitor without any symptoms Appreciate cardiology input and recommendation for outpatient stress testing Echo of the heart showed-LVEF was 55 to 60% there is mild concentric LVH, there is a small sized inferior wall motion abnormality with hypokinesis of the segments, grade 1 diastolic dysfunction, and no significant valvular pathology Likely be discharged this afternoon (2) CAD (coronary artery disease): Plan: As above (3) Diabetes mellitus, type II: Plan: Will continue home doses of insulin and put her on sliding scale Blood sugar to be checked ACHS Will get hemoglobin [id number] at 8.6 (4) Hypothyroidism: Plan: Continue thyroid replacement Check TSH-was normal B12 level is low-received 1 g of B12 in the hospital and will continue with 1000 mcg p.o. daily as an outpatient (5) Anxiety: (6) Dyslipidemia: Plan: Will check the fasting lipid profile and continue her current medications DVT prophylaxis Subcu heparin CODE STATUS Full Admission and Anticipated Discharge Date Admission Date: February 08, 2024 Subjective 02/09/2024 The patient was seen and examined in medical telemetry unit She has been stable and wants to be discharged She was noted to have 2.3 3-second pause on the monitor without any symptoms She denies any significant symptoms today Review of Systems Review of Systems: All systems reviewed and unremarkable except as noted below Physical Exam 2 Physical Exam: Sitting on the bed without any acute distress but anxious Constitutional: well developed, well nourished, + ill appearing and + obese Eyes: PERRL, conjunctivae normal, anicteric sclerae ENMT: external ear and nose normal, oropharynx normal Neck: trachea midline, no thyromegaly Respiratory: no respiratory distress Auscultation: lungs clear to ausculta tion bilaterally; no crackles Cardiovascular: Rate/Rhythm: regular rate and regular rhythm; not tachycardic Heart Sounds: normal S1, normal S2 and + murmur (1/6 to 2/6 ESM over precordium) Extremities: no edema Gastrointestinal (Abdomen): Inspection/Auscultation: normal bowel sounds; abdomen not distended Percussion/Palpation: abdomen soft; abdomen nontender Neurologic: normal touch/pain/proprioception and moves all extremities; no focal motor deficits Psychiatric: A+Ox3, euthymic affect Lymphatic: no cervical or axillary lymphadenopathy Results & Data Results & Data Vital Signs (Past 12 Hours) Vital Signs Temp Pulse Pulse Resp BP BP Pulse Ox 02/09/24 11:12 36.9 C 67 18 101/68 98 02/09/24 07:35 36.5 C 64 18 120/77 97 02/09/24 07:32 71 02/09/24 03:08 36.4 C L 59 L 18 120/75 96 O2 Del Method 02/09/24 11:12 Room Air 02/09/24 07:35 Room Air 02/09/24 07:32 02/09/24 03:08 Room Air Laboratory Results Short CBC 02/08/24 02/09/24 Range/Units 14:39 02:25 WBC 10.09 10.59 (4.8-10.8) K/ul Hgb 14.1 13.4 (12.0-16.0) g/dl Hct 41.5 38.5 (37.0-47.0) % Plt Count 286 260 (130-400) K/uL BMP 02/08/24 02/09/24 14:39 02:25 Sodium 138 139 Potassium 3.9 3.8 Chloride 102 105 Carbon Dioxide 28 27 BUN 14 13 Creatinine 0.77 0.78 Glucose 205 H 115 H Calcium 10.8 H 10.4 H Liver Function 02/08/24 Range/Units 14:39 Total Bilirubin 0.3 (0.2-1.0) mg/dl AST 24 (13-39) U/L ALT 34 (7-52) U/L Alkaline Phosphatase 120 H (34-104) U/L Albumin 4.7 (3.4-5.0) gm/dl Medications Administered Current Inpatient Medications Aspirin (Aspirin 81 Mg Ectab) 81 mg PO HS MARLA Stop: 03/10/24 20:59 Atorvastatin Calcium (Atorvastatin 40 Mg Tab) 80 mg PO QAM MARLA Stop: 03/10/24 08:59 Last Admin: 02/09/24 09:12 Dose: 80 mg Cyanocobalamin (Cyanocobalamin 1000 Mcg/Ml Vial) 1,000 mcg IM Q7D@0900 MARLA Stop: 03/01/24 09:01 Last Admin: 02/09/24 09:13 Dose: 1,000 mcg Dextrose (Dextrose 50% 50 Ml Syringe) 25 - 50 ml IV UD PRN; Protocol PRN Reason: Hypoglycemia Protocol Stop: 03/09/24 20:29 Fenofibrate (Fenofibrate Nanocrystallized 145 Mg Tablet) 145 mg PO QAM MARLA Stop: 03/10/24 08:59 Last Admin: 02/09/24 09:14 Dose: 145 mg Glucagon (Glucagon For Inj 1 Mg Vial) 1 mg IM UD PRN; Protocol PRN Reason: Hypoglycemia Protocol Stop: 03/09/24 20:29 Glucose (Glucose 40% Gel 15 Gm Tube) 15 - 30 gm PO UD PRN; Protocol PRN Reason: Hypoglycemia Protocol Stop: 03/09/24 20:29 Glucose (Glucose 10 Tab/Tube) 4 - 8 tab PO UD PRN; Protocol PRN Reason: Hypoglycemia Protocol Stop: 03/09/24 20:29 Heparin Sodium (Porcine) (Heparin Sod 5,000 Unit/0.5 Ml Vial) 5,000 units SQ Q12 MARLA Stop: 03/09/24 20:59 Last Admin: 02/09/24 09:19 Dose: 5,000 units Hydroxyzine HCl (Hydroxyzine Hcl 25 Mg Tab) 37.5 mg PO Q6H PRN PRN Reason: Anxiety Stop: 03/09/24 20:19 Insulin Aspart (Insulin Aspart Per Unit Charge) 0 units SC ACHS MARLA Stop: 03/09/24 20:59 Last Admin: 02/09/24 09:11 Dose: 6 units Insulin Glargine (Lantus Per Unit Charge) 25 units SQ HS MARLA Stop: 03/09/24 20:59 Last Admin: 02/08/24 21:33 Dose: 25 units Levothyroxine Sodium (Levothyroxine Sodium 125 Mcg Tablet) 125 mcg PO DAILYBB MARLA Stop: 03/10/24 06:29 Last Admin: 02/09/24 05:41 Dose: 125 mcg Lisinopril (Lisinopril 5 Mg Tab) 5 mg PO QAM MARLA Stop: 03/10/24 08:59 Last Admin: 02/09/24 09:14 Dose: 5 mg Magnesium Chloride (Magnesium Chloride W/Calcium 64mg Delayed Rel Tab) 64 mg PO BID MARAL Stop: 03/09/24 20:59 Last Admin: 02/09/24 09:15 Dose: 64 mg Metoprolol Tartrate (Metoprolol Tartrate 25 Mg Tab) 12.5 mg PO BID MARLA Stop: 03/09/24 20:59 Last Admin: 02/09/24 09:15 Dose: 12.5 mg Miscellaneous (Carbohydrates For Hypoglycemia ) 15 - 30 gm PO UD PRN PRN Reason: Hypoglycemia Treatment Stop: 03/09/24 20:29 Morphine Sulfate (Morphine Sulfate 4 Mg/Ml 1 Ml Carp\Vial) 4 mg IV Q6H PRN PRN Reason: Pain Stop: 02/22/24 18:30 Nitroglycerin (Nitroglycerin Sl 0.4 Mg/Tab Tab) 0.4 mg SL Q5M PRN PRN Reason: Chest Pain Stop: 03/09/24 18:30 Pantoprazole Sodium (Pantoprazole 40 Mg Tab) 40 mg PO DAILY MARLA Stop: 03/10/24 08:59 Last Admin: 02/09/24 09:17 Dose: 40 mg Ticagrelor (Ticagrelor 90 Mg Tab) 90 mg PO BID MARLA Stop: 03/09/24 20:59 Last Admin: 02/09/24 09:17 Dose: 90 mg Ursodiol (Ursodiol 300 Mg Cap) 300 mg PO DAILY MARLA Stop: 03/10/24 08:59 Last Admin: 02/09/24 09:17 Dose: 300 mg
[2024-02-09 13:37] VITALS: BP 120/77
[2024-02-09 14:19] VITALS: PULSE 64
--- NOTE | 2024-02-09 17:55 | Electrocardiogram Report ---
Test Reason : Blood Pressure : */* mmHG Vent. Rate : 62 BPM Atrial Rate : 62 BPM P-R Int : 178 ms QRS Dur : 90 ms QT Int : 438 ms P-R-T Axes : 60 46 72 degrees QTcB Int : 444 ms Normal sinus rhythm Confirmed by Vikram Hardy ([id number]) on 02/09/2024 5:55:23 PM Referred By: REFERRED SELF Confirmed By: Vikram Hardy
--- NOTE | 2024-02-09 18:46 | Discharge Summary ---
Date of Service February 09, 2024 Admission HPI Per Admitting Provider She is a 53-year-old female with significant past medical history of type 2 diabetes on insulin, CAD status post 4 stents placement in the past, hypothyroidism, hyperlipidemia, SRIDEVI, biliary dyskinesia and also history of recurrent acute pancreatitis apparently has been complaining of chest pain off and on since this morning. The pain seems to be in the center of the chest and bilaterally is not up with typical pain but discomfort the patient cannot explain clearly. There is no aggravating or relieving factors. The pain last for few seconds at one time and not associated with any nausea, vomiting, palpitation, sweating or dizziness. There is no radiation of pain. She denies any bloating and she has been on Ozempic as well to reduce weight. She has history of tobacco use disorder. Her initial troponins x 2 2 hours apart and EKG were unremarkable but given the history of CAD with poor stent placement in the past and history of diabetes with ongoing smoking she was admitted to medical telemetry unit for continuation of care. Admission Exam Per Admitting Provider Physical Exam: Sitting on the bed without any acute distress but anxious Constitutional: well developed, well nourished, + ill appearing and + obese Eyes: PERRL, conjunctivae normal, anicteric sclerae ENMT: external ear and nose normal, oropharynx normal Neck: trachea midline, no thyromegaly Respiratory: no respiratory distress Auscultation: lungs clear to auscultation bilaterally; no crackles Cardiovascular: Rate/Rhythm: regular rate and regular rhythm; not tachycardic Heart Sounds: normal S1, normal S2 and + murmur (1/6 to 2/6 ESM over precordium) Extremities: no edema Gastrointestinal (Abdomen): Inspection/Auscultation: normal bowel sounds; abdomen not distended Percussion/Palpation: abdomen soft; abdomen nontender Musculoskeletal: No acute arthritis involving any of the joint Neurologic: normal touch/pain/proprioception and moves all extremities; no focal motor deficits Psychiatric: A+Ox3, euthymic affect Lymphatic: no cervical or axillary lymphadenopathy Principal Diagnosis Chest painno ACS, CAD status post 4 stents in the past, type 2 diabetes Discharge Exam Sitting on the bed without any acute distress but anxious Constitutional well developed, well nourished, + ill appearing and + obese Eyes PERRL, conjunctivae normal, anicteric sclerae ENMT external ear and nose normal, oropharynx normal Neck trachea midline, no thyromegaly Respiratory no respiratory distress Auscultation: lungs clear to auscultation bilaterally; no crackles Cardiovascular Rate/Rhythm: regular rate and regular rhythm; not tachycardic Heart Sounds: normal S1, normal S2 and + murmur (1/6 to 2/6 ESM over precordium) Extremities: no edema Gastrointestinal (Abdomen) Inspection/Auscultation: normal bowel sounds; abdomen not distended Percussion/Palpation: abdomen soft; abdomen nontender Neurologic normal touch/pain/proprioception and moves all extremities; no focal motor deficits Psychiatric A+Ox3, euthymic affect Lymphatic no cervical or axillary lymphadenopathy Discharge Data Allergies Allergy/AdvReac Type Severity Reaction Status Date / Time metformin AdvReac Intermediate Gastrointestinal Verified 02/09/24 14:30 Upset Consultations 02/08/24 17:32 ED Decision to Admit Stat 02/08/24 18:33 Consult Cardiology Routine Ordered Studies 02/08/24 18:12 US gallbladder Routine Hospital Course (1) Atypical chest pain: Presented with central chest discomfort/pain without any associated symptoms History of CAD with 4 stent placement on and before 2020 Initial EKG and troponins are unremarkable Significant risk factors including diabetes hyperlipidemia and obesity and also smoking Will admit to medical telemetry unit for observation Serial cardiac enzymes and echocardiogram will be done including EKG Will continue her usual medications including aspirin, beta-emely, statin, Brilinta for now Ultrasound of the liver will be done to rule out any gallstone disease and doubt any pancreatitis at this time Will get a cardiology evaluation in the morning Ultrasound did not show any gallstones but he did show his hepatic steatosis Denies any more chest pain and/or palpitation and remained hemodynamically stable Noted to have a 2.3-second pause on the monitor without any symptoms Appreciate cardiology input and recommendation for outpatient stress testing Echo of the heart showed-LVEF was 55 to 60% there is mild concentric LVH, there is a small sized inferior wall motion abnormality with hypokinesis of the segments, grade 1 diastolic dysfunction, and no significant valvular pathology Likely be discharged this afternoon (2) CAD (coronary artery disease): As above (3) Diabetes mellitus, type II: Will continue home doses of insulin and put her on sliding scale Blood sugar to be checked ACHS Will get hemoglobin [id number] at 8.6 (4) Hypothyroidism: Continue thyroid replacement Check TSH-was normal B12 level is low-received 1 g of B12 in the hospital and will continue with 1000 mcg p.o. daily as an outpatient (5) Anxiety: (6) Dyslipidemia: Will check the fasting lipid profile and continue her current medications DVT prophylaxis Subcu heparin CODE STATUS Full Total Time Total Time Spent Total Time Spent (In Minutes): 35 minutes Discharge Plan Discharge Items Patient Disposition: Home - Self-Care Reason For Visit: CHEST PAIN Discharge Diagnosis: Chest painno ACS, CAD status post 4 stents in the past, type 2 diabetes Condition on Discharge: Good Activity: Resume your previous activity Non-emergency contact: Primary Care Provider Call non-emergency contact if: you have any medication questions and your symptoms worsen Follow-up/Referrals: Edwin Espinoza MD [Primary Care Provider] - (Date & Time 02/12/2024 9:00 AM Provider Isidoro Cisneros MD Department [facility] ) Diet: Heart Healthy Add Attending Provider Instructions: Please keep follow-up appointments with your PCP [facility] will call you with an outpatient stress test Pending Studies at Discharge: No Stand-Alone Forms: [employer], Smoking Cessation Medications and DC Order Prescriptions: New cyanocobalamin (vitamin B-12) 1,000 mcg capsule 1,000 mcg PO DAILY Qty: 30 0RF Continued levothyroxine [Levoxyl] 125 mcg tablet 125 mcg PO QAM hydroxyzine pamoate [Vistaril] 25 mg capsule See Rx Instructions .ROUTE .COMPLEX PRN (Reason: Anxiety) Rx Instructions: take one and one-half tablet every 6 hours prn anxiety fenofibrate nanocrystallized 145 mg tablet 145 mg PO QAM Brilinta 90 mg Tablet 90 mg PO BID Qty: 60 1RF lisinopril [Zestril] 5 mg Tablet 5 mg PO QAM Qty: 30 1RF metoprolol tartrate 25 mg Tablet 12.5 mg PO BID Qty: 30 1RF ondansetron 8 mg Tablet,Disintegrating 8 mg PO Q8H PRN (Reason: Nausea And Vomiting) aspirin 81 mg tablet,delayed release (DR/EC) 81 mg PO HS atorvastatin 80 mg tablet 80 mg PO QAM insulin glargine [Lantus U-100 Insulin] 100 unit/mL Solution 25 unit SUBCUT HS Ozempic 0.25 mg or 0.5 mg (2 mg/3 mL) pen injector 0.5 mg SUBCUT WK Rx Instructions: take in morning every thursday pantoprazole 20 mg tablet,delayed release (DR/EC) 20 mg PO QAM Discharge Orders: Discharge Order (Routine); Ordered 02/09/24 Ordered By: Jose Mtz Admission Data Admit Date/Time: 02/08/24 18:27 Attending Provider: Jose Mtz Admit Provider: Jose Mtz Primary Care Provider: Edwin Espinoza Other Providers: Jose Mtz; Hilda Harrington; Jesse Blackwell; Jamarcus Melgoza; Raul Crain; Rene Flores; Tereso Archibald; Kady Manuel; Shefali Givens; Jacqui Garcia Ashley M.; Richy Mock; Milton Conde; Sindy Vo; Micaela Haque; Yamile Hamilton; Kirt Rose; Jeff Reed; Mary Wellington Other Interventions: Discharge Summary Assessment (RN) Last Done: 02/09/24 13:36
[2024-02-09] MEDS ORDERED: ASPIRIN 81 MG ECTAB PO SCH (21:00)
== END 2024-02-09 14:30 | disposition home or self-care (01) ==
LOC: ED 14:28 → 2N 14:28